=== PATIENT | male | born 1960 | race Caucasian/White ===

== ENCOUNTER → 2017-08-12 07:14 | Outpatient (CLI) | payer BC, SELFPAY ==
[2017-08-12 10:35] LABS: Alanine Aminotransferase 41 U/L (12-78); Albumin Level 3.8 gm/dL (3.4-5.0); Albumin/Globulin Ratio 1.4 (1.1-1.8); Alkaline Phosphatase 96 U/L (46-116); Anion Gap 12.6 mEq/L (5-15); Aspartate Amino Transferase 29 U/L (15-37); Bilirubin,Total 0.5 mg/dL (0.2-1.0); Blood Urea Nitrogen 14 mg/dL (7-18); Calcium 8.8 mg/dL (8.5-10.1); Carbon Dioxide 28 mmol/L (21.0-32.0); Chloride 104 mmol/L (98-107); Chol/HDL Ratio 5.4 (1-3.5); Cholesterol 237 mg/dL (140-200); Creatinine,Serum 0.89 mg/dL (0.70-1.30); Estimated Glomerular Filt Rate > 60 ml/min (>60); GFR (African American) > 60 ML/MIN (>60); Globulin 2.8 gm/dl (1.3-3.2); Glucose 94 mg/dL (74-106); HDL Cholesterol 44 mg/dL (27-67); LDL Cholesterol 177 mg/dL (0-130); Potassium 4.6 mmoL/L (3.5-5.1); Sodium 140 mmol/L (136-145); Total Protein,Serum 6.6 gm/dL (6.4-8.2); Triglycerides 82 mg/dL (30-200); VLDL Cholesterol 16 mg/dL (0-40)
== END ==
PROVIDERS: PCP Family Medicine; Visit Provider Nurse Practitioner Family
DX: E78.5 Hyperlipidemia, unspecified (principal)
CPT/HCPCS: 36415; 80053; 80061

== ENCOUNTER → 2018-05-12 07:04 | Outpatient (CLI) | payer BC, SELFPAY ==
[2018-05-12 08:02] LABS: Alanine Aminotransferase 42 U/L (12-78); Albumin Level 3.6 gm/dL (3.4-5.0); Albumin/Globulin Ratio 1.2 (1.1-1.8); Alkaline Phosphatase 96 U/L (46-116); Anion Gap 9.5 mEq/L (5-15); Aspartate Amino Transferase 24 U/L (15-37); Bilirubin,Total 0.5 mg/dL (0.2-1.0); Blood Urea Nitrogen 12 mg/dL (7-18); Calcium 8.8 mg/dL (8.5-10.1); Carbon Dioxide 29 mmol/L (21.0-32.0); Chloride 107 mmol/L (98-107); Chol/HDL Ratio 4.1 (1-3.5); Cholesterol 170 mg/dL (140-200); Creatinine,Serum 0.94 mg/dL (0.70-1.30); Estimated Glomerular Filt Rate 83 ml/min (>60); GFR (African American) 100 ML/MIN (>60); Glucose 102 mg/dL (74-106); HDL Cholesterol 41 mg/dL (27-67); LDL Cholesterol 114 mg/dL (0-130); Potassium 4.5 mmoL/L (3.5-5.1); Sodium 141 mmol/L (136-145); Total Protein,Serum 6.6 gm/dL (6.4-8.2); Triglycerides 77 mg/dL (30-200); VLDL Cholesterol 15 mg/dL (0-40)
== END ==
PROVIDERS: PCP Family Medicine; Visit Provider Family Medicine
DX: E78.5 Hyperlipidemia, unspecified (principal)
CPT/HCPCS: 36415; 80053; 80061

== ENCOUNTER → 2018-10-07 10:17 | Outpatient (CLI) | payer BC, SELFPAY ==
--- NOTE | 2018-10-07 10:24 | XR_ITS ---
XR hip RT 2-3V w/pelvis HISTORY: ITS.REASON: RIGHT HIP PAIN ORDERING PHYSICIAN: Vin Denson MD PATIENT AGE: 58 years COMPARISON: None FINDINGS: No fracture or dislocation is evident. Mild to moderate osteoarthritic changes are present involving both hips right slightly greater than left. There is decrease in the joint space with osteophyte formation. No fracture or dislocation. No lytic or blastic change. There is a calcific density inferior to the ischial tuberosity on the right and could be related to an old avulsion fracture. There is mild sclerosis of the right SI joint. IMPRESSION: Wwah-wz-oibhomje osteoarthritic changes of the right hip Portable fracture of the right ischial tuberosity
== END ==
PROVIDERS: PCP Family Medicine; Visit Provider Family Medicine
DX: M25.551 Pain in right hip (principal)
CPT/HCPCS: 73502

== ENCOUNTER 2018-12-13 17:30 | Outpatient (RCR) | payer BC, SELFPAY ==
--- NOTE | 2018-11-13 18:14 | HMH.PTOPEV ---
PT Outpatient Evaluation Rehab PT Outpatient Evaluation Start: 11/13/18 17:20 Freq: Status: Active Protocol: Document 11/13/18 17:41 RAFIAJEREMY (Rec: 11/13/18 18:14 MIGUELTANNER [id number]) Electronically Signed By Mushtaq Beaver, PT 11/13/18 17:41 Outpatient Therapy Subjective History Subjective History This is the initial Physical Therapy evaluation for Sorin Vasquez. Pt is a 58 y/o male referred to PT for c/o R hip and buttocks pain. Pt reports ~ 6 months ago he squatted down to pick something up while carrying load in L[place]. Pt reports as he stood he felt and heard a pop in his R hip joint and had anterior thigh pain. Pt reports pain in anterior thigh lessened but began having pain in R buttocks. Pt reports both are still hurting Chief Complaint Pain Stiff Symptom Type Ache Throb Sharp Stabbing Burning Symptoms Relieved By Rest/Positioning Symptoms Aggravated By Standing Physical Activity Walking Prior Functional Limitations None Current Functional Limitations Standing Recreation Activity Walking Stairs Hip/Knee Eval Gait Observation General Gait Pattern Observation Antalgic Gait Assistive Device Assistive Devices None / NA Palpation Tenderness right Hip Palpation Findings Tenderness Trigger Point Muscle Guarding MMT left Hip Strength Reason Not Measured WFL Knee Strength Reason Not Measured WFL right Hip Flexion Strength Grade 4- Good- Hip External Rotation Strength Grade 4- Good- Knee Strength Reason Not Measured WFL Special Tests Hip Bowstring (Cram) Test Negative Left Negative Right Hip Luz Elena Test Positive Right Hip Piriformis Test Positive Right Hip Scouring (Quadrant) Test Positive Right Outpatient Therapy Assessment Impairments Problems/Impairmments Palpation Tenderness Impaired Strength Impaire
== END 2018-12-13 17:35 | disposition home or self-care (01) ==
LOC: PT 17:30
PROVIDERS: Visit Provider Orthopaedic Surgery
DX: M16.11 Unilateral primary osteoarthritis, right hip (principal); M16.12 Unilateral primary osteoarthritis, left hip; M67.98 Unspecified disorder of synovium and tendon, other site
CPT/HCPCS: 97010; 97110; 97163

== ENCOUNTER → 2019-01-21 09:59 | Outpatient (CLI) | payer BC, SELFPAY ==
--- NOTE | 2019-01-21 10:04 | XR_ITS ---
XR knee LT 3V HISTORY: Acute left knee pain ITS.REASON: LT KNEE PAIN ORDERING PHYSICIAN: Vin Denson MD PATIENT AGE: 58 years COMPARISON: 09/01/2009 FINDINGS: There is severe osteoarthritis of the medial compartment with moderate to severe osteoarthritis of the lateral compartment and patellofemoral joint. The osteoarthritis has progressed since the previous exam. There is mild lateral tibial translation of approximately 8 mm. Prominent osteophyte formation is present along the proximal medial tibial plateau and along the patellofemoral area. IMPRESSION: Severe osteoarthritis which has progressed from the previous exam. No fracture
== END ==
PROVIDERS: PCP Family Medicine; Visit Provider Family Medicine
DX: M25.562 Pain in left knee (principal)
CPT/HCPCS: 73562

== ENCOUNTER → 2020-12-18 07:55 | Outpatient (CLI) | payer BC, SELFPAY ==
[2020-12-18 08:54] LABS: Chloride 105 mmol/L (98-107); Potassium 4.8 mmoL/L (3.5-5.1); Sodium 139 mmol/L (136-145)
[2020-12-18 08:56] LABS: Alanine Aminotransferase 30 U/L (12-78); Aspartate Amino Transferase 30 U/L (17-59); Blood Urea Nitrogen 19 mg/dl (9-20); Estimated Glomerular Filt Rate 99 ml/min (>60); GFR (African American) 120 ML/MIN (>60)
[2020-12-18 08:57] LABS: Albumin Level 4.5 g/dl (3.5-5.0); Albumin/Globulin Ratio 1.8 (1.1-1.8); Alkaline Phosphatase 88 U/L (38-126); Anion Gap 11.8 mEq/L (5-15); Bilirubin,Total 0.4 mg/dl (0.2-1.3); Calcium 9.8 mg/dl (8.4-10.2); Carbon Dioxide 27 mmol/L (22.0-30.0); Chol/HDL Ratio 3.6 (1-3.5); Cholesterol 181 mg/dl (140-200); Globulin 2.5 g/dL (1.3-3.2); Glucose 126 mg/dl (74-100); HDL Cholesterol 50 mg/dl (40-60); Triglycerides 69 mg/dl (30-150); VLDL Cholesterol 14 mg/dL (0-40)
[2020-12-18 09:08] LABS: Direct LDL Cholesterol 109.62 mg/dL (100-129)
[2020-12-18 09:28] LABS: Thyroid Stimulating Hormone 1.08 uIU/mL (0.465-4.68)
== END ==
PROVIDERS: Visit Provider Family Medicine
DX: E78.5 Hyperlipidemia, unspecified (principal)
CPT/HCPCS: 36415; 80053; 80061; 84443

== ENCOUNTER → 2021-07-26 16:05 | Outpatient (CLI) | payer BC, SELFPAY ==
--- NOTE | 2021-07-26 16:09 | XR_ITS ---
PROCEDURE: XR LUMBAR SPINE MIN 4V CLINICAL INDICATION: RT SIDED LOW BACK PAIN W/ RT SIDES SCIATICA COMPARISON: No exams were available for comparison FINDINGS: Mild lumbar curvature convex right. No fracture or dislocation. 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 Anterior osteophytes are noted. There are small posterior osteophytes from L2-L5. Mild bony hypertrophy of the inferior aspect of the SI joints. Degenerative changes are present in the right hip. IMPRESSION: Degenerative changes otherwise negative Dictated by: Juan Olivera MD 07/26/2021 16:46 Juan Olivera MD in [facility] 07/26/2021 16:46
== END ==
PROVIDERS: PCP Family Medicine; Visit Provider Family Medicine
DX: M54.41 Lumbago with sciatica, right side (principal)
CPT/HCPCS: 72110

== ENCOUNTER 2023-10-22 15:13 | Emergency (ER) | payer BC, SELFPAY ==
[2023-10-22] VITALS (19 sets, daily range): BP systolic 117–158; BP diastolic 71–84; PULSE 77–150; RESP 9–20; TEMP 36.6–36.7; O2SAT 94–98; BMI 45.4
--- NOTE | 2023-10-22 15:15 | ECG_ITS ---
APPROVED REPORT Exam: Resting ECG HR:115 bpm ECG Measurements Heart Rate 115 AXES QRSd 97 QRS -15 QT 307 T 43 QTc 375 Conclusion ATRIAL FIBRILLATION WITH RAPID VENTRICULAR RESPONSE MODERATE ST DEPRESSION [0.05+ mV ST DEPRESSION] ABNORMAL ECG UNCONFIRMED REPORT Electronically signed by : Santosh Valentine, 10/23/2023 22:53:53
--- NOTE | 2023-10-22 15:48 | PC.NURSE ---
pt up to restroom
--- NOTE | 2023-10-22 16:23 | HMH.EDGENADL ---
Discharge Plan Disposition Patient Disposition: Home, Self-Care Prescriptions Prescriptions: New Eliquis 5 mg tablet 5 mg PO BID 28 Days Qty: 56 0RF Rx Instructions: please take 10 mg BID for 7 days followed by 5 mg BID for a total of 3 months No Action nabumetone 750 mg tablet 750 mg PO BID simvastatin 20 mg/5 mL (4 mg/mL) suspension 20 mg PO QHS Referrals Follow up/Referrals: Clifford Diaz MD [Staff Physician] - See instructions Provider,MD Justa [Primary Care Provider] - See instructions Activity Restrictions/Add. Instructions Additional Instructions/Restrictions: You had new onset of atrial fibrillation with rapid ventricular response and we electrically cardioverted you back into normal sinus rhythm. You have been prescribed Eliquis for 4 weeks of anticoagulation please follow-up closely with cardiology and make an appointment next available. Return to the emergency department with any recurrence or worsening of her symptoms. Clinical Impressions Clinical Impression: Atrial fibrillation with rapid ventricular response Instructions Patient Instructions: DI for Moderate Sedation, Moderate Sedation Discharge ED Provider: Rosetta Valentine General Adult HPI General Chief complaint: Arrhythmia/Palpitations Stated complaint: chest pain Time Seen by Provider: 10/22/23 15:44 Mode of Arrival: Ambulatory Source of Information: Patient Limitations: No Limitations Description of Symptoms (Recalled from ER Triage Doc. by RN): pt presents to ED with arrythmia. pt reports that he ate lunch, then went out to ride on his tractor. pt reports he went inside to sit down and felt that his heart was out of rhythm . pt reports no pain or pressure associated with symptoms. History of Present Illness HPI narrative: Patient is a 63-year-old previously healthy male presenting today with his heart fluttering and near syncope. States that he has no history of atrial fibrillation or any type of ventricular or atrial dysrhythmia in the past and states that suddenly at around 3 PM he began feeling his heart fluttering and felt as if he was going pass out. No significant chest pain shortness of breath fevers chills nausea vomiting etc. preceding this. He was diagnosed with influenza B 2 weeks ago but has not had no other preceding illnesses. Related Data Home Medications Medication Instructions Recorded Confirmed nabumetone 750 mg tablet 750 mg PO BID 11/02/18 11/02/18 simvastatin 20 mg/5 mL (4 mg/mL) 20 mg PO QHS 11/02/18 11/02/18 oral suspension Previous Rx's Medication Instructions Recorded apixaban 5 mg tablet (Eliquis) 5 mg PO BID 4 weeks #56 tabs 10/22/23 Allergies Allergy/AdvReac Type Severity Reaction Status Date / Time penicillin G Allergy Verified 11/02/18 10:43 [facility] Disclaimer: The information contained in this section may have been updated after the patient was seen, as this information can be updated by other users. Social History Smoking Status: Never smoker alcohol intake: never current occupational status: employed Travel in the last 8 weeks: None ROS Obtained: Yes All systems reviewed & no additional complaints except as documented Physical Exam General General appearance: alert and in no apparent distress Respiratory Respiratory exam: Present normal lung sounds bilaterally Cardiovascular Cardiovascular exam: Present regular rate and normal rhythm Neurological Exam Neurological exam: Present alert and oriented X3 Medical Decision Making Alfredito Inquiry Pt receiving controlled substance: No Vital Signs: 10/22/23 15:15 10/22/23 15:22 10/22/23 15:30 Temperature 97.9 F Temperature Source Oral Pulse Rate 80 Pulse Rate [Left Radial] 135 H 81 Respiratory Rate 18 15 Blood Pressure 158/83 H Blood Pressure [Right Arm] 158/83 H 158/83 H Blood Pressure Mean Blood Pressure Mean [Right Arm] 108 108 02 Sat by Pulse Oximetry 97 95 Oxygen Delivery Method Room Air Oxygen Flow Rate (LPM) 10/22/23 15:31 10/22/23 16:01 10/22/23 16:29 Temperature Temperature Source Pulse Rate 86 91 H Pulse Rate [Left Radial] 150 H Respiratory Rate 18 18 18 Blood Pressure 146/84 H 148/72 H Blood Pressure [Right Arm] 141/80 H Blood Pressure Mean 97 Blood Pressure Mean [Right Arm] 100 02 Sat by Pulse Oximetry 95 97 98 Oxygen Delivery Method Room Air Oxygen Flow Rate (LPM) 10/22/23 16:41 10/22/23 16:45 10/22/23 16:51 Temperature Temperature Source Pulse Rate 83 83 90 Pulse Rate [Left Radial] Respiratory Rate 20 15 18 Blood Pressure 152/78 H 137/80 122/72 Blood Pressure [Right Arm] Blood Pressure Mean 94 Blood Pressure Mean [Right Arm] 02 Sat by Pulse Oximetry 95 94 L 95 Oxygen Delivery Method Nasal Cannula Oxygen Flow Rate (LPM) 2 10/22/23 16:56 10/22/23 16:57 10/22/23 17:01 Temperature Temperature Source Pulse Rate 91 H 92 H Pulse Rate [Left Radial] 88 Respiratory Rate 12 14 Blood Pressure 119/72 126/71 Blood Pressure [Right Arm] 119/72 Blood Pressure Mean Blood Pressure Mean [Right Arm] 87 02 Sat by Pulse Oximetry 96 96 96 Oxygen Delivery Method Room Air Oxygen Flow Rate (LPM) 10/22/23 17:06 10/22/23 17:15 10/22/23 17:16 Temperature Temperature Source Pulse Rate 87 79 81 Pulse Rate [Left Radial] Respiratory Rate 19 9 L 20 Blood Pressure 128/78 124/79 117/71 Blood Pressure [Right Arm] Blood Pressure Mean Blood Pressure Mean [Right Arm] 02 Sat by Pulse Oximetry 94 L 96 96 Oxygen Delivery Method Oxygen Flow Rate (LPM) 10/22/23 17:21 10/22/23 17:26 10/22/23 17:30 Temperature Temperature Source Pulse Rate 81 81 77 Pulse Rate [Left Radial] Respiratory Rate 18 18 Blood Pressure 131/73 127/72 125/81 Blood Pressure [Right Arm] Blood Pressure Mean Blood Pressure Mean [Right Arm] 02 Sat by Pulse Oximetry 95 98 95 Oxygen Delivery Method Oxygen Flow Rate (LPM) Lab Data Lab results reviewed: Yes I reviewed the patient's lab results. Lab Results 10/22/23 15:23: WBC 10.5, RBC 5.05, Hgb 16.1, Hct 47.5, MCV 94.1 H, MCH 31.9 H, MCHC 33.9, RDW 13.2, Plt Count 295, MPV 9.4, Neut % (Auto) 64.4, Lymph % (Auto) 25.8, [place] % (Auto) 7.1, Eos % (Auto) 2.2, Baso % (Auto) 0.6, Neut # (Auto) 6.7, Lymph # (Auto) 2.7, [place] # (Auto) 0.7, Eos # (Auto) 0.2, Baso # (Auto) 0.1, Sodium 140, Potassium 4.0, Chloride 107, Carbon Dioxide 28, Anion Gap 9.0, BUN 13, Creatinine 0.80, Estimated Creat Clear 83, Estimated GFR 98, Est GFR ( Amer) 119, Glucose 90, Calcium 9.3, Magnesium 2.0, Total Bilirubin 0.4, AST 39, ALT 34, Alkaline Phosphatase 84, Troponin I < 0.01, Total Protein 6.9, Albumin 4.3, Globulin 2.6, Albumin/Globulin Ratio 1.7, TSH 2.16 10/22/23 15:23 10/22/23 15:23 Orders (Tests/Meds): ED MEDICATIONS Discontinued Medications Generic Name Dose Route Start Last Admin Trade Name Shivaq PRN Reason Stop Dose Admin Apixaban 5 mg 10/22/23 16:53 10/22/23 17:32 Apixaban 5mg Tablet PO 10/22/23 16:54 5 mg ONCE ONE Administration Fentanyl Citrate 100 mcg 10/22/23 16:47 10/22/23 16:32 Fentanyl 100mcg/2ml Vial IV 10/22/23 16:48 100 mcg ONCE ONE Administration Lactated Ringer's 1,000 mls @ 999 mls/hr 10/22/23 16:30 10/22/23 16:35 Lactated Ringer's 1000 Ml Bag IV 10/22/23 17:30 999 mls/hr .Q1H1M FE Administration Midazolam HCl 5 mg 10/22/23 16:47 10/22/23 16:35 Midazolam 5mg/Ml 1ml Vial IV 10/22/23 16:48 5 mg ONCE ONE Administration ORDERS Category Date Time Status CBC w/Auto Diff [Complete Blood Count Auto Diff] Stat Lab 10/22/23 15:23 Completed CMP [Comprehensive Metabolic Panel] Stat Lab 10/22/23 15:23 Completed Magnesium Stat Lab 10/22/23 15:23 Completed TSH [Thyroid Stimulating Hormone] Stat Lab 10/22/23 15:23 Completed Trop I [Troponin I] Stat Lab 10/22/23 15:23 Completed Troponin I Q3H Lab 10/22/23 19:30 Ordered Troponin I Q3H Lab 10/22/23 22:30 Ordered Medical Decision Narrative: Patient is a 63-year-old male with a very good history of sudden arrhythmia EKG was performed at person interpreted shows a ventricular rate of 115 atrial fibrillation with RVR there are some nonspecific ST changes in the inferior leads in the lateral precordial leads no ST elevations patient has no signs or symptoms of ischemia at the moment. His blood pressure is normal. I had an extensive discussion with him about the risk and benefits of rate control versus rhythm control. He opted for going for rhythm control with electrical cardioversion I do believe that this is safe in his particular case because he is within 48 hours and gives a good history of exactly when this began. I will still initiate anticoagulation with him after this. And he will follow-up closely with cardiology if this is successful. Will reassess after cardioversion is attempted. Reassessment 4:50 PM cardioversion was successful EKG subsequently performed which showed a ventricular rate of 86 normal sinus rhythm no acute ischemic changes there is left axis deviation no significant conduction abnormalities at this point. Reassessment 6:02 PM patient asymptomatic the remainder of the time and feels much better and back to baseline the emergency department after cardioversion. Labs unremarkable. He was given a dose of Eliquis and given 4 weeks of anticoagulation. He will follow-up closely with cardiology and return with any significant worsening of his symptoms Procedures Procedural Sedation Mallampati Score:: Class I Indication: other (Electrical cardioversion) ASA Class: I Preparation: cfo applied, pulse oximeter, capnometry used, supplemental O2 applied, suction/airway equipment at bedside and IV secured Fentanyl: IV Fentanyl dose (mcg): 1 (100 mcg ) Midazolam: IV Midazolam dose (mg): 4 Patient Tolerated Procedure: well Complications: none Additional Comments: Start time was 1632 End time 1643 Miscellaneous Procedure Procedure Performed: Electrical cardioversion Indication new onset A-fib within 48 hours Procedure patient was consented he understood the risk and benefits of procedure pads were placed in anterior posterior position synchronized cardioversion was done with 100 J with successful cardioversion with first attempt. Subsequent twelve-lead was performed after the cardioversion that demonstrated sinus rhythm. No complications. Critical Care Critical Care Time Critical Care Time: Yes Attestation: On 10/22/23, the high probability of a clinically significant, sudden or life threatening deterioration of the following system(s) required my full and direct attention, intervention and personal management. The time I documented below is in addition to time spent performing reported procedures but includes the following listed in this critical care notation. Total Time Total Critical Care Time: 35
[2023-10-22 16:30] LABS: Basophils # 0.1 K/mm3 (0-0.2); Basophils % 0.6 % (0.1-2.0); Eosinophils # 0.2 K/mm3 (0.0-0.4); Eosinophils % 2.2 % (0.1-12.0); Hematocrit 47.5 % (42.0-52.0); Hemoglobin 16.1 g/dL (14.1-18.0); Lymphocytes # 2.7 K/mm3 (0.7-4.5); Lymphocytes % 25.8 % (10-50); Mean Corpuscular HGB Conc 33.9 g/dL (31.8-35.4); Mean Corpuscular Hemoglobin 31.9 pg (27.0-31.2); Mean Corpuscular Volume 94.1 fl (80-94); Mean Platelet Volume 9.4 fl (7.4-10.4); Monocytes # 0.7 K/mm3 (0.1-1.0); Monocytes % 7.1 % (1.7-9.3); Neutrophils # 6.7 K/mm3 (1.8-7.8); Neutrophils % 64.4 % (37.0-80.0); Platelet Count 295 K/mm3 (142-424); Red Blood Count 5.05 M/mm3 (4.60-6.20); Red Cell Distribution Width 13.2 % (11.5-17.5); White Blood Count 10.5 K/mm3 (4.8-10.8)
[2023-10-22 16:31] LABS: Chloride 107 mmol/L (98-107); Sodium 140 mmol/L (136-145)
[2023-10-22] MEDS: FENTANYL 100MCG/2ML VIAL 100 MCG IV (16:32)
[2023-10-22 16:34] LABS: Alanine Aminotransferase 34 U/L (12-78); Albumin Level 4.3 g/dl (3.5-5.0); Albumin/Globulin Ratio 1.7 (1.1-1.8); Alkaline Phosphatase 84 U/L (38-126); Aspartate Amino Transferase 39 U/L (17-59); Bilirubin,Total 0.4 mg/dl (0.2-1.3); Blood Urea Nitrogen 13 mg/dl (9-20); Calcium 9.3 mg/dl (8.4-10.2); Carbon Dioxide 28 mmol/L (22.0-30.0); Creatinine Clearance Estimated 83 mL/min (50-200); Estimated Glomerular Filt Rate 98 ml/min (>60); GFR (African American) 119 ML/MIN (>60); Globulin 2.6 g/dL (1.3-3.2); Glucose 90 mg/dl (74-100); Total Protein,Serum 6.9 g/dl (6.3-8.2)
[2023-10-22] MEDS: LACTATED RINGERS 1000ML 1,000 ML 999 ML IV (16:35)
[2023-10-22] MEDS: MIDAZOLAM 5MG/ML 1ML VIAL 5 MG IV (16:35)
--- NOTE | 2023-10-22 16:41 | ECG_ITS ---
APPROVED REPORT Exam: Resting ECG HR:86 bpm ECG Measurements Heart Rate 86 AXES ID 166 P 56 QRSd 98 QRS -23 QT 339 T 29 QTc 382 Conclusion SINUS RHYTHM BORDERLINE LEFT AXIS DEVIATION [QRS AXIS < -20] BORDERLINE ECG UNCONFIRMED REPORT Electronically signed by : Santosh Valentine, 10/23/2023 22:53:37
[2023-10-22 16:54] LABS: Troponin I < 0.01 ng/ml (0.00-0.034)
--- NOTE | 2023-10-22 17:00 | PC.NURSE ---
1622 consent obtained 1629 time out performed, pads placed on pt, co2 monitor placed on pt, oxygen placed on pt, hung saline fluids, assessed IV status md trinidad, demond barrientos, ashley dorsey, demond rothman, vin[facility] murray, [facility]. 1632 fentanyl given 1635 versed given 1639 charge to 100j 1640 shock given 1640 pt in sinus rhythm 1643 pt back to baseline, brought into room
[2023-10-22 17:06] LABS: Thyroid Stimulating Hormone 2.16 uIU/mL (0.465-4.68)
[2023-10-22] MEDS: APIXABAN 5MG TABLET 5 MG PO (17:32)
== END 2023-10-22 18:04 | disposition home or self-care (01) ==
PROVIDERS: Emergency Provider Student in an Organized Health Care Education/Training Program
DX: I48.91 Unspecified atrial fibrillation (principal)
CPT/HCPCS: 92960; 80053; 83735; 84443; 84484; 85025; 93005; 96360; 99291

== ENCOUNTER 2023-11-06 18:42 | Emergency (ER) | payer BC, SELFPAY ==
[2023-11-06] VITALS (8 sets, daily range): BP systolic 131–162; BP diastolic 65–100; PULSE 73–163; RESP 12–20; TEMP 36.5–36.6; O2SAT 96–98; BMI 46.0
--- NOTE | 2023-11-06 18:40 | ECG_ITS ---
APPROVED REPORT Exam: Resting ECG HR:139 bpm ECG Measurements Heart Rate 139 AXES QRSd 96 QRS -15 QT 286 T 55 QTc 367 Conclusion ATRIAL FIBRILLATION WITH RAPID VENTRICULAR RESPONSE Nonspecific ST/T wave changes Electronically signed by : GASTON MALONEY, 11/06/2023 21:38:24
--- NOTE | 2023-11-06 18:43 | HMH.EDGENADL ---
Discharge Plan Disposition Patient Disposition: Home, Self-Care Condition: Good Prescriptions Prescriptions: New verapamil 240 mg capsule,ext rel. pellets 24 hr 240 mg PO DAILY Qty: 30 1RF No Action celecoxib 200 mg capsule 200 mg PO DAILY Patient Comments: TAKE 1 CAPSULE BY MOUTH ONCE DAILY simvastatin 20 mg tablet 20 mg PO HS Patient Comments: TAKE 1 TABLET BY MOUTH EVERY DAY AT BEDTIME Eliquis 5 mg tablet 5 mg PO BID 28 Days Qty: 56 0RF Rx Instructions: please take 10 mg BID for 7 days followed by 5 mg BID for a total of 3 months Referrals Follow up/Referrals: Provider,Referral, MD [Primary Care Provider] - See instructions Activity Restrictions/Add. Instructions Additional Instructions/Restrictions: You were evaluated in the emergency department today. Please shrimp picker your prescription at the pharmacy and take once a day as prescribed. Keep your follow-up with cardiology tomorrow. Continue to follow-up closely as an outpatient with cardiology as well as your primary care provider. Return to the emergency department for any new or worsening symptoms. Clinical Impressions Clinical Impression: Atrial fibrillation with rapid ventricular response Instructions Patient Instructions: DI for Atrial Fibrillation Discharge ED Provider: Paige Stapleton General Adult HPI General Chief complaint: Arrhythmia/Palpitations Stated complaint: chest pain Time Seen by Provider: 11/06/23 18:43 History of Present Illness HPI narrative: This patient is a 63-year-old male with a history of atrial fibrillation and hyperlipidemia presenting to the emergency department for evaluation with concern for palpitations. Patient reports that 30 minutes prior to arrival, he was pushing the trash cans to the road when he had sudden onset palpitations and lightheadedness. He states that he knew he went into atrial fibrillation again. He was evaluated here 10/22/2023 for similar issue, and he was electrically cardioverted. On medical record review, he was sedated with fentanyl and Versed and underwent cardioversion, which converted him into normal sinus rhythm. He was discharged home on Eliquis but not on any rate control medications. He followed up outpatient with cardiology and was scheduled to have testing, including stress test. He is due for that tomorrow. He states he had been doing really well since 10/21 up until flipping back into atrial fibrillation just prior to arrival. He denies any other concerns or complaints. He has been compliant with his Eliquis treatment. Related Data Home Medications Medication Instructions Recorded Confirmed celecoxib 200 mg capsule 200 mg PO DAILY 10/24/23 10/24/23 simvastatin 20 mg tablet 20 mg PO HS 10/24/23 10/24/23 Previous Rx's Medication Instructions Recorded apixaban 5 mg tablet (Eliquis) 5 mg PO BID 4 weeks #56 tabs 10/22/23 verapamil 240 mg 24 hr 240 mg PO DAILY #30 caps 11/06/23 capsule,extended release Allergies Allergy/AdvReac Type Severity Reaction Status Date / Time penicillin G Allergy Verified 10/24/23 11:09 [facility] Disclaimer: The information contained in this section may have been updated after the patient was seen, as this information can be updated by other users. Medical History History of cardioversion HLD (hyperlipidemia) Obesity Apnea Snoring Social History Smoking Status: Never smoker alcohol intake: never current occupational status: employed Travel in the last 8 weeks: None ROS Obtained: Yes All systems reviewed & no additional complaints except as documented Physical Exam General General appearance: alert, in no apparent distress and obese Head Head exam: atraumatic and normocephalic Eye Eye exam: Present normal appearance, PERRL and EOMI ENT ENT exam: Present normal exam, normal oropharynx, mucous membranes moist and normal external ear exam Neck Neck exam: Present normal inspection, full ROM and trachea midline; Absent tenderness Chest Chest inspection: Present normal inspection and symmetric chest wall rise; Absent tenderness Respiratory Respiratory exam: Present normal lung sounds bilaterally; Absent respiratory distress, wheezes, stridor or accessory muscle use Cardiovascular Cardiovascular exam: Present tachycardia and irregular rhythm Abdominal Exam Abdominal exam: Present soft; Absent distention, tenderness or guarding Extremities Exam Extremities exam: Present normal inspection, full ROM and normal capillary refill; Absent tenderness or edema Back Exam Back exam: Present normal inspection and full ROM; Absent tenderness Neurological Exam Neurological exam: Present alert, oriented X3, CN II-XII intact and normal gait; Absent motor sensory deficit Psychiatric Psychiatric exam: Present normal affect and normal mood Skin Skin exam: Present warm and dry Medical Decision Making Medical Records Medical records reviewed: Yes I reviewed the patient's medical records. Alfredito Inquiry Pt receiving controlled substance: No Vital Signs: 11/06/23 18:42 11/06/23 19:01 11/06/23 19:19 Temperature 97.9 F Temperature Source Oral Pulse Rate 139 H 142 H Pulse Rate [Radial] 120 H Respiratory Rate 20 12 14 Blood Pressure 138/65 138/82 Blood Pressure [Right Arm] 162/100 H Blood Pressure Mean 99 94 Blood Pressure Mean [Right Arm] 120 Blood Pressure Source [Right Arm] Automatic Cuff Blood Pressure Position [Right Arm] Sitting 02 Sat by Pulse Oximetry 96 96 97 Oxygen Delivery Method Room Air Room Air Nasal Cannula 11/06/23 19:31 11/06/23 20:00 11/06/23 20:31 Temperature Temperature Source Pulse Rate 163 H 86 84 Pulse Rate [Radial] Respiratory Rate 14 14 14 Blood Pressure 144/76 H 145/80 H 131/75 Blood Pressure [Right Arm] Blood Pressure Mean 98 88 86 Blood Pressure Mean [Right Arm] Blood Pressure Source [Right Arm] Blood Pressure Position [Right Arm] 02 Sat by Pulse Oximetry 96 97 97 Oxygen Delivery Method Nasal Cannula Nasal Cannula Nasal Cannula 11/06/23 21:00 Temperature Temperature Source Pulse Rate 80 Pulse Rate [Radial] Respiratory Rate 14 Blood Pressure 139/82 Blood Pressure [Right Arm] Blood Pressure Mean 95 Blood Pressure Mean [Right Arm] Blood Pressure Source [Right Arm] Blood Pressure Position [Right Arm] 02 Sat by Pulse Oximetry 97 Oxygen Delivery Method Nasal Cannula Lab Data Lab results reviewed: Yes I reviewed the patient's lab results. Lab Results 11/06/23 18:43: WBC 10.7, RBC 5.05, Hgb 16.2, Hct 47.8, MCV 94.7 H, MCH 32.0 H, MCHC 33.8, RDW 13.2, Plt Count 268, MPV 8.7, Neut % (Auto) 58.1, Lymph % (Auto) 30.0, Lyon % (Auto) 7.3, Eos % (Auto) 3.7, Baso % (Auto) 0.9, Neut # (Auto) 6.2, Lymph # (Auto) 3.2, Lyon # (Auto) 0.8, Eos # (Auto) 0.4, Baso # (Auto) 0.1, D-Dimer 0.35, Sodium 140, Potassium 4.2, Chloride 106, Carbon Dioxide 27, Anion Gap 11.2, BUN 14, Creatinine 0.90, Estimated Creat Clear 83, Estimated GFR 86, Est GFR ( Amer) 104, Glucose 96, Calcium 10.0, Magnesium 1.8, Total Bilirubin 0.4, AST 38, ALT 33, Alkaline Phosphatase 90, Troponin I < 0.01, NT-Pro-B Natriuret Pep 88.8, Total Protein 7.2, Albumin 4.4, Globulin 2.8, Albumin/Globulin Ratio 1.6 11/06/23 : TSH 2.37, Thyroxine (T4) 7.2 11/06/23 18:43 11/06/23 18:43 Orders (Tests/Meds): ED MEDICATIONS Generic Name Dose Route Start Last Admin Trade Name Freq PRN Reason Stop Dose Admin Sodium Chloride 10 ml 11/06/23 18:47 Sodium Chloride 0.9% 10ml Flush Syringe IV 12/06/23 18:46 NEEDED PRN Maintain IV Site Discontinued Medications Generic Name Dose Route Start Last Admin Trade Name Freq PRN Reason Stop Dose Admin Fentanyl Citrate 100 mcg 11/06/23 19:40 Fentanyl 100mcg/2ml Vial IV 11/06/23 19:41 ONCE ONE Lactated Ringer's 1,000 mls @ 999 mls/hr 11/06/23 18:59 11/06/23 19:42 Lactated Ringer's 1000 Ml Bag IV 11/06/23 19:59 999 mls/hr .Q1H1M ONE Administration Midazolam HCl 4 mg 11/06/23 19:40 Midazolam 2mg/2ml Vial IV 11/06/23 19:41 ONCE ONE Verapamil HCl 240 mg 11/06/23 19:00 11/06/23 19:41 Verapamil Sr 120mg Tablet PO 11/06/23 19:01 240 mg ONCE ONE Administration ORDERS Category Date Time Status XR chest portable Stat Exams 11/06/23 18:47 Completed Complete Blood Count Auto Diff Stat Lab 11/06/23 18:43 Completed Comprehensive Metabolic Panel Stat Lab 11/06/23 18:43 Completed D-Dimer Stat Lab 11/06/23 18:43 Completed Magnesium Stat Lab 11/06/23 18:43 Completed NT Pro Brain Natriuretic Pep. Stat Lab 11/06/23 18:43 Completed T4 (Thyroxine) Stat Lab 11/06/23 Completed Thyroid Stimulating Hormone Stat Lab 11/06/23 Completed Troponin I Q3H Lab 11/06/23 22:00 Ordered Troponin I Q3H Lab 11/07/23 01:00 Ordered Troponin I Stat Lab 11/06/23 18:43 Completed ECG Data Tracing #1: I reviewed this ECG and interpreted as documented below: Atrial fibrillation with a ventricular rate of 139 bpm. No acute STEMI. ECG initial impression date: 11/06/23 ECG initial impression time: 18:41 Tracing #2: I reviewed this ECG and interpreted as documented below: Normal sinus rhythm with a ventricular rate of [address] changes concerning for ischemia. Incomplete right bundle branch block noted. ECG initial impression date: 11/06/23 ECG initial impression time: 20:09 Medical Decision Narrative: In summary, this patient is a 63-year-old male presenting to the Emergency Department for evaluation of palpitations. Differential diagnoses considered include but are not limited to atrial fibrillation, electrolyte derangements, thyroid abnormality, ACS. Ruling out the most morbid conditions drove assessment. I reviewed patient's past medical records and noted previous cardioversion 10/21, which she tolerated well.. On exam, the patient is hemodynamically stable and is resting comfortably in no acute distress, though he is in atrial fibrillation with rapid ventricular response with rates ranging from the 120s to 140s. I called and had and after discussion with Dr. Diaz with cardiology given that the patient has cardiology follow-up arranged for tomorrow for testing to see if he has a preference on how I manage the atrial fibrillation. He advised that he would recommend giving 240 mg of p.o. extended release verapamil as well as proceeding with cardioversion as long as patient is okay with that. Workup included CBC, CMP, troponin, magnesium, TSH, T4, BNP, chest rate, and EKG. EKG does not demonstrate any acute ischemic change, but does demonstrate atrial fibrillation with RVR. Labs were obtained that were reassuring with negative troponin, negative D-dimer, and no other acutely concerning abnormalities. I independently interpreted x-ray prior to the radiologist read and noted acute focal consolidation, pneumothorax, or pulmonary edema. Please see their read for final interpretation. Ultimately after being administered the verapamil, patient was consented for cardioversion, as he was still in atrial fibrillation with rapid ventricular response. Fentanyl and versed hold, as we are planning to use this for sedation. Upon attempt to initiate the procedure, patient actually spontaneously converted to normal sinus rhythm, which was confirmed on repeat EKG at 2008. He is feeling well at this time with no concerns or complaints and states that his palpitations have resolved. Patient was placed in ED observation status at 2014 to monitor him on cardiac telemetry and ensure that he does not convert back to atrial fibrillation with rapid ventricular response. He was provided with serial reassessments and continuous cardiac monitoring. If he remains in normal sinus rhythm, feel he will be appropriate for discharge with prescription for verapamil and very close follow-up with cardiology and his primary care provider. On multiple subsequent reassessments, the patient remained in normal sinus rhythm with a rate in the 70s to 80s. At 2130, he was deemed to be ready for discharge after approximately 1 hour and 15 minutes in ED observation. Patient was given instructions for close follow-up, prescription for verapamil, and strict return precautions. He was discharged after all questions were answered. Procedures Risk/Benefits of Procedure(s) Were Explained: Yes Procedural Sedation A heart and lung assessment was performed on this patient at: 19:13 Mallampati Score:: Class I Indication: other (cardioversion) ASA Class: II Preparation: monitoring specialist applied, pulse oximeter, capnometry used, supplemental O2 applied, reversal agents at bedside, suction/airway equipment at bedside and IV secured Critical Care Critical Care Time Critical Care Time: No
--- NOTE | 2023-11-06 18:47 | XR_ITS ---
PROCEDURE INFORMATION: Exam: XR Chest Exam date and time: 11/06/2023 6:50 PM Age: 63 years old Clinical indication: Other: Chest fluttering; Additional info: PT states his chest feels like it's fluttering. TECHNIQUE: Imaging protocol: Radiologic exam of the chest. Views: 1 view. COMPARISON: No relevant prior studies available. FINDINGS: Lungs: Unremarkable. No consolidation. Pleural spaces: Unremarkable. No pleural effusion. No pneumothorax. Heart/Mediastinum: Unremarkable. No cardiomegaly. Bones/joints: Unremarkable. IMPRESSION: No acute findings.
--- NOTE | 2023-11-06 18:49 | PC.NURSE ---
Dr. Stapleton speaking with cardiology
--- NOTE | 2023-11-06 18:53 | PC.NURSE ---
RAD at BS
[2023-11-06 19:00] LABS: Basophils # 0.1 K/mm3 (0-0.2); Basophils % 0.9 % (0.1-2.0); Eosinophils # 0.4 K/mm3 (0.0-0.4); Eosinophils % 3.7 % (0.1-12.0); Hematocrit 47.8 % (42.0-52.0); Hemoglobin 16.2 g/dL (14.1-18.0); Lymphocytes # 3.2 K/mm3 (0.7-4.5); Mean Corpuscular HGB Conc 33.8 g/dL (31.8-35.4); Mean Corpuscular Volume 94.7 fl (80-94); Mean Platelet Volume 8.7 fl (7.4-10.4); Monocytes # 0.8 K/mm3 (0.1-1.0); Monocytes % 7.3 % (1.7-9.3); Neutrophils # 6.2 K/mm3 (1.8-7.8); Neutrophils % 58.1 % (37.0-80.0); Platelet Count 268 K/mm3 (142-424); Red Blood Count 5.05 M/mm3 (4.60-6.20); Red Cell Distribution Width 13.2 % (11.5-17.5); White Blood Count 10.7 K/mm3 (4.8-10.8)
[2023-11-06 19:06] LABS: Alanine Aminotransferase 33 U/L (12-78); Albumin Level 4.4 g/dl (3.5-5.0); Albumin/Globulin Ratio 1.6 (1.1-1.8); Alkaline Phosphatase 90 U/L (38-126); Anion Gap 11.2 mEq/L (5-15); Aspartate Amino Transferase 38 U/L (17-59); Bilirubin,Total 0.4 mg/dl (0.2-1.3); Blood Urea Nitrogen 14 mg/dl (9-20); Carbon Dioxide 27 mmol/L (22.0-30.0); Chloride 106 mmol/L (98-107); Creatinine Clearance Estimated 83 mL/min (50-200); Estimated Glomerular Filt Rate 86 ml/min (>60); GFR (African American) 104 ML/MIN (>60); Globulin 2.8 g/dL (1.3-3.2); Glucose 96 mg/dl (74-100); Magnesium 1.8 mg/dl (1.6-2.3); Potassium 4.2 mmoL/L (3.5-5.1); Sodium 140 mmol/L (136-145); Total Protein,Serum 7.2 g/dl (6.3-8.2)
[2023-11-06 19:11] LABS: D-Dimer 0.35 ug/mL (0.0-0.5)
[2023-11-06 19:16] LABS: NT Pro Brain Natriuretic Pep. 88.8 pg/mL (0-125)
[2023-11-06 19:22] LABS: Troponin I < 0.01 ng/ml (0.00-0.034)
[2023-11-06] MEDS: VERAPAMIL SR 120MG TABLET 240 MG PO (19:41)
[2023-11-06] MEDS: LACTATED RINGERS 1000ML 1,000 ML 999 ML IV (19:42)
--- NOTE | 2023-11-06 19:44 | PC.NURSE ---
up to bathroom
[2023-11-06 20:00] LABS: T4 (Thyroxine) 7.2 ug/dl (5.53-11.0)
--- NOTE | 2023-11-06 20:01 | ECG_ITS ---
APPROVED REPORT Exam: Resting ECG HR:83 bpm ECG Measurements Heart Rate 83 AXES MO 160 P 55 QRSd 96 QRS -30 QT 353 T 27 QTc 392 Conclusion SINUS RHYTHM BORDERLINE LEFT AXIS DEVIATION [QRS AXIS < -20] LOW QRS VOLTAGE IN PRECORDIAL LEADS [QRS DEFLECTION < 1.0 mV IN CHEST LEADS] INCOMPLETE RIGHT BUNDLE BRANCH BLOCK [90+ ms QRS DURATION, TERMINAL R IN V1/V2, 40+ ms S IN I/aVL/V4/V5/V6] Electronically signed by : GASTON MALONEY, 11/07/2023 23:08:45
[2023-11-06 20:14] LABS: Thyroid Stimulating Hormone 2.37 uIU/mL (0.465-4.68)
== END 2023-11-06 22:03 | disposition home or self-care (01) ==
PROVIDERS: Emergency Provider Emergency Medicine
DX: I48.91 Unspecified atrial fibrillation (principal); R07.89 Other chest pain; R00.2 Palpitations; E78.5 Hyperlipidemia, unspecified
CPT/HCPCS: 92960; 71045; 80053; 83735; 83880; 84436; 84443; 84484; 85025; 85378; 93005; 96361; 96374; 96375; 99285

== ENCOUNTER 2023-11-07 07:39 | Outpatient (CLI) | payer BC, SELFPAY ==
--- NOTE | 2023-11-07 07:39 | NM_ITS ---
APPROVED REPORT Exam: Nuclear Stress Test Indication: HYPERLIPIDEMIA, FM HX, PALPATATIONS, ABN EKG Patient Location: Outpatient Stress Tech: Natalia Hwang [place] Tech:BART Bernal RT(R)(N) Ht: 5 ft 11 in Wt: 330 lbs HR: 68 bpm BP: 130/71 mmHg BSA: 2.61 m2 TID: 1.07 BMI: 46.0 History: HYPERLIPIDEMIA, FM HX, PALPATATIONS, ABN EKG PT COULD NOT LAY ON STOMACH FOR PRONE IMAGES Procedure: Patient received 0.0 mg of intravenous Lexiscan, resting heart rate 68 bpm, resting blood pressure 130/71 mmHg, with Lexiscan maximum heart rate achieved was 93 bpm which is % of the maximum predicted heart rate and blood pressure was 130/71 mmHg. With Lexiscan, patient denied any complaint of chest pain. Cardiac Stress and Resting SPECT Images: Cardiac Stress and Resting SPECT images were obtained using technetium 99m Myoview 32.9 mCi stress and 10.54 mCi at rest. The patient could not lie on his abdomen. Therefore, prone stress imaging could not be performed. This may affect the diagnostic interpretation of the study findings. Resting and stress imaging and supine positions demonstrate a medium sized, moderate, fixed perfusion defect in the basal to mid inferior LV wall. Findings are suggestive of diaphragmatic attenuation, but true perfusion defect cannot be entirely ruled out. Gated imaging demonstrates normal global and regional LV systolic function. LVEF is calculated at 65%. Conclusion: Medium sized, moderate, fixed perfusion defect in the basal to mid inferior LV wall. Findings are suggestive of diaphragmatic attenuation, but true perfusion defect cannot be entirely ruled out. Gated imaging demonstrates normal global and regional LV systolic function. LVEF is calculated at 65%. Electronically signed by : Tona Logan MD 11/08/2023 13:18:58
--- NOTE | 2023-11-07 08:04 | CA_ITS ---
APPROVED REPORT EXAM: Comprehensive 2D, Doppler, and color-flow Echocardiogram Wafer Substrate Tester: Bebe Lozano RVT Ht: 5 ft 11 in Wt: 342lbs BSA: 2.65 BP: 133/66 mmHg Indications: A-FIB,HLD,CARDIOVERTED 10/22/23 Echo Enhancing Agent Indication: Endocardial border delineation Agent(s) / Amount(s) Used: Definity 2 cc 2D Dimensions LA Volume 73.80 mL LA Volume Index 27.85 mL/m2 (M/F) 16-34 EF AP4 38.10 % GL Strain -14.0 % M-Mode Dimensions RVDd 2.68 cm (0.9-2.6) LA Diam 3.81 cm (1.9-4.0) LVDd 4.28 cm (3.5-5.7) LVDs 2.28 cm (3.5-5.7) IVSd 1.87 cm (0.6-1.1) PWd 1.16 cm (0.6-1.1) EF (Teich) 78.50% FS 46.70% EDV (Teich) 82.20 mL ESV (Teich) 17.70 mL LV Diastology E Decel Time 150 (160-240 msec) E/A Ratio 1.3 Aortic Valve TERESE Index 0.96 cm2/m2 AoV Peak Eron. 104.0 (50-130 cm/s) AO Peak GR. 4.40 mmHg AO Mean GR. 2.40 (<5 mmHg) AO VTI 16.1 (18-25 cm) TERESE (VTI) 2.61 (2.5-4.5 cm2) Mitral Valve MV E Max Eron. 83.0 (40-130 cm/s) MV A Velocity 66.0 (40-130 cm/s) E/A Ratio 1.26 MV PHT 44.0 ms Pulmonary Valve PV Peak Velocity 78.0 (50-150 cm/s) Tricuspid Valve TR P. Velocity 187.00 cm/s RAP Estimate 10.00 mmHg RVSP 24.00 mmHg Left Ventricle The left ventricle is normal size. The left ventricular systolic function is normal. The left ventricular ejection fraction is within the normal range. There is increased LV wall thickness. There is normal LV segmental wall motion. The left ventricular diastolic function is normal. No left ventricle thrombus noted on this study. LVEF is 55%. Right Ventricle The right ventricle is mildly dilated. The right ventricular systolic function is normal. Atria The left atrium size is normal. The right atrium size is normal. There is no Doppler evidence of interatrial shunt. Aortic Valve The aortic valve is mildly thickened. There is no aortic valvular stenosis. Trace aortic regurgitation is present. Mitral Valve The mitral valve leaflets are mildly thickened. Trace mitral regurgitation. No evidence of mitral valve stenosis. Tricuspid Valve The tricuspid valve leaflets are thin and pliable. Trace tricuspid regurgitation. There is insufficient TR jet to estimate RVSP. Pulmonic Valve The pulmonary valve is normal in structure. Trace pulmonic regurgitation. Great Vessels The aortic root is normal in size. The ascending aorta is normal in size. IVC is normal in size and collapses >50% with inspiration. Pericardium There is no pericardial effusion. Other Information Study Quality: Technically Difficult Conclusion Technically difficult study due to poor acoustic windows. Normal biventricular systolic function. Mild RV dilation. No significant valvular stenosis or regurgitation. Electronically signed by : Tona Logan MD 11/08/2023 15:00:02
[2023-11-07] MEDS: ISOTOPE MYOVIEW (PER STUDY) 1 DOSE IV (09:12)
[2023-11-07] MEDS: SODIUM CHLORIDE 0.9% 10ML SYR (RAD ONLY) 10 ML IV ×2 (09:12)
[2023-11-07] MEDS: REGADENOSON 0.4MG/5ML SYRINGE 0.400000000000000022 MG IV (09:12)
--- NOTE | 2023-11-07 09:19 | CA_ITS ---
APPROVED REPORT Exam: Pharmacologic Technologist: Natalia Ball, Ht: 5 ft 11 in Wt: 342 lbs BSA: 2.65 m2 HR: 66 bpm BP: 130/71 mmHg Rhythm: NSR Medical History Medications: Simvastatin,,,,, Celecoxib,,,,, ElIQUIS,,,,, Stress Test Details Test: LEXISCAN Reason for pharmacologic stress test: physical limitation. HR Resting HR: 68 bpm Max Heart Rate (APMHR): 159 bpm Max HR Achieved: 93 bpm Target HR (85% APMHR): 135 bpm % of APMHR: 58 Recovery HR: 73 bpm BP Resting BP: 130.0/71.0 mmHg Max BP: 130.0/71.0 mmHg Recovery BP: 122.0/55.0 mmHg ECG Resting ECG: Normal Stress ECG: No significant ST changes Arrhythmia: None Clinical Exercise duration: 04:00 min Highest Stage Achieved: Stress ECG Conclusion Symptoms: Denies Arrhythmias/Ectopy: none ST-T Changes: unremarkable Lexiscan stress test. Myoview images are reported separately. Test Summary REST . . . . . . . Resting REST 04:55 . . 68 . 130/ 71 . . Stage 1 01:00 . . 90 . . . . Stage 2 01:00 . . 88 . . . . Stage 3 01:00 . . 79 . 127/ 60 . . Stage 4 01:00 . . 74 . 124/ 58 . Stop exercise at 04:00 RECOVERY 01:00 . . 74 . . . . RECOVERY 01:39 . . 78 . 122/ 55 . . Electronically signed by : Tona Logan MD 11/08/2023 13:11:24
[2023-11-07] MEDS: DEFINITY US ECHO CONTRAST 2ML INJ 2 MG IV (09:59)
== END 2023-11-07 23:59 ==
LOC: RAD 07:39
PROVIDERS: PCP Family Medicine; Visit Provider Physician Assistant
DX: I48.91 Unspecified atrial fibrillation (principal); I48.0 Paroxysmal atrial fibrillation; R94.31 Abnormal electrocardiogram [ECG] [EKG]
CPT/HCPCS: 78452; 93017; 93018; 93306; A9502; J2785; Q9957

== ENCOUNTER → 2023-12-06 09:00 | Outpatient (CLI) | payer BC, SELFPAY | LOC: SL 12-07 09:03 | PROVIDERS: PCP Family Medicine; Visit Provider Nurse Practitioner Family | DX: G47.33 Obstructive sleep apnea (adult) (pediatric) (principal); G47.36 Sleep related hypoventilation in conditions classified elsewhere | CPT/HCPCS: G0399 ==

== ENCOUNTER 2024-02-10 13:45 | Emergency (ER) | payer BC, SELFPAY ==
[2024-02-10] VITALS (7 sets, daily range): BP systolic 160–180; BP diastolic 81–115; PULSE 54–87; RESP 11–20; TEMP 36.8–36.9; O2SAT 93–97; BMI 46.3
--- NOTE | 2024-02-10 13:47 | ECG_ITS ---
APPROVED REPORT Exam: Resting ECG HR:111 bpm ECG Measurements Heart Rate 111 AXES QRSd 140 QRS -11 QT 371 T 44 QTc 436 Conclusion ATRIAL FIBRILLATION WITH RAPID VENTRICULAR RESPONSE RIGHT BUNDLE BRANCH BLOCK [120+ ms QRS DURATION, UPRIGHT V1, 40+ ms S IN I/aVL/V4/V5/V6] ABNORMAL ECG Electronically signed by : STEVE DUPONT, 02/10/2024 23:20:14
--- NOTE | 2024-02-10 13:50 | HMH.EDGENADL ---
Discharge Plan Disposition Patient Disposition: Home, Self-Care Condition: Good Prescriptions Prescriptions: No Action celecoxib 200 mg capsule 200 mg PO DAILY Patient Comments: TAKE 1 CAPSULE BY MOUTH ONCE DAILY simvastatin 20 mg tablet 20 mg PO HS Patient Comments: TAKE 1 TABLET BY MOUTH EVERY DAY AT BEDTIME Eliquis 5 mg tablet 5 mg PO BID 30 Days Qty: 60 12RF verapamil 240 mg capsule,ext rel. pellets 24 hr 240 mg PO DAILY Qty: 30 12RF Referrals Follow up/Referrals: Hema Casper MD [Primary Care Provider] - See instructions Activity Restrictions/Add. Instructions Additional Instructions/Restrictions: Given that your symptoms have improved and your heart rate is down to normal range, you are stable for discharge at this time. 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 Please return with any new or worsening symptoms. Clinical Impressions Clinical Impression: Atrial fibrillation with rapid ventricular response Instructions Patient Instructions: DI for Atrial Fibrillation Discharge ED Provider: Joby Ricci Adult [facility] General Chief complaint: Arrhythmia/Palpitations Stated complaint: chest pain Time Seen by Provider: 02/10/24 13:50 History of Present Illness HPI narrative: The patient presents with a chief complaint of atrial fibrillation (AFib), which has been ongoing for about an hour. This is the third episode since November. The patient has been under the care of physicians and prescribed medications for AFib management. He reports that these medications have been effective in controlling the condition until today's episode. He denies any syncope, presyncope, or associated chest pain. Symptoms were acute in onset, constant, stable in course. The patient denies any changes in medications, missed doses, or new medications, except for a switch from one cholesterol medication to another due to a conflict with one of the AFib medications. This change occurred two to three weeks ago. He has a history of two previous AFib episodes, one treated with electrical cardioversion and the other resolved after approximately 1-1.5 hours with an unknown medication. Please note that above description of symptoms, in this electronic medical record under categorization of recalled from ER triage doctor by RN are reflective of an initial nursing assessment, however, is not reflective of my full history and physical exam that was personally taken and clarified. Consequentially, this preceding description of symptoms, which may include the patient's categorized chief complaint in the EMR, do not reflect my personal clinical impression, and the ultimate description of history of present illness and patient stated complaints should be deferred to this section of the note. Unless stated otherwise or congruent with this section of the note, additional signs, symptoms, or incongruence should be interpreted as inaccurate with my clinical impression. Related Data Home Medications Medication Instructions Recorded Confirmed celecoxib 200 mg capsule 200 mg PO DAILY 10/24/23 11/14/23 simvastatin 20 mg tablet 20 mg PO HS 10/24/23 11/14/23 Previous Rx's Medication Instructions Recorded apixaban 5 mg tablet (Eliquis) 5 mg PO BID 30 days #60 tabs 11/27/23 verapamil 240 mg 24 hr 240 mg PO DAILY #30 caps 01/08/24 capsule,extended release Allergies Allergy/AdvReac Type Severity Reaction Status Date / Time penicillin G Allergy Verified 11/14/23 10:07 [facility] Disclaimer: The information contained in this section may have been updated after the patient was seen, as this information can be updated by other users. Medical History (Updated 02/10/24 @ 15:42 by Joby Ricci MD) MATT (obstructive sleep apnea) History of cardioversion HLD (hyperlipidemia) Obesity Apnea Snoring Social History Smoking Status: Never smoker alcohol intake: never current occupational status: employed Travel in the last 8 weeks: None ROS Obtained: Yes other As per HPI Physical Exam General General appearance: alert and in no apparent distress Head Head exam: atraumatic and normocephalic Eye Eye exam: Present normal appearance Neck Neck exam: Present normal inspection Chest Chest inspection: Present normal inspection and symmetric chest wall rise Respiratory Respiratory exam: Present normal lung sounds bilaterally; Absent respiratory distress Cardiovascular Cardiovascular exam: Present tachycardia and irregular rhythm Abdominal Exam Abdominal exam: Present soft Neurological Exam Neurological exam: Present alert and oriented X3 Psychiatric Psychiatric exam: Present normal affect and normal mood Skin Skin exam: Present warm and dry Medical Decision Making Medical Records Medical records reviewed: Yes I reviewed the patient's medical records. Alfredito Inquiry Pt receiving controlled substance: No Vital Signs: 02/10/24 13:46 02/10/24 14:00 02/10/24 14:15 Temperature 98.3 F Temperature Source Oral Pulse Rate 68 77 Pulse Rate [Right] 87 Respiratory Rate 20 13 13 Blood Pressure 167/115 H 180/90 H Blood Pressure [Right Arm] 167/115 H Blood Pressure Mean [Right Arm] 132 02 Sat by Pulse Oximetry 97 95 95 Oxygen Delivery Method Room Air 02/10/24 14:31 02/10/24 15:00 02/10/24 15:31 Temperature Temperature Source Pulse Rate 81 54 L Pulse Rate [Right] Respiratory Rate 11 L 11 L 13 Blood Pressure 160/81 H 170/90 H 165/87 H Blood Pressure [Right Arm] Blood Pressure Mean [Right Arm] 02 Sat by Pulse Oximetry 95 93 L Oxygen Delivery Method Room Air 02/10/24 15:52 Temperature 98.4 F Temperature Source Oral Pulse Rate 67 Pulse Rate [Right] Respiratory Rate 20 Blood Pressure 165/87 H Blood Pressure [Right Arm] Blood Pressure Mean [Right Arm] 02 Sat by Pulse Oximetry Oxygen Delivery Method Room Air Lab Data Lab Results 02/10/24 13:41: WBC 9.4, RBC 4.91, Hgb 15.3, Hct 45.2, MCV 92.1, MCH 31.2, MCHC 33.9, RDW 13.5, Plt Count 258, MPV 9.1, Neut % (Auto) 65.9, Lymph % (Auto) 24.3, Fergus % (Auto) 7.0, Eos % (Auto) 2.2, Baso % (Auto) 0.6, Neut # (Auto) 6.2, Lymph # (Auto) 2.3, Fergus # (Auto) 0.7, Eos # (Auto) 0.2, Baso # (Auto) 0.1, Sodium 139, Potassium 4.0, Chloride 109 H, Carbon Dioxide 25, Anion Gap 9.0, BUN 16, Creatinine 0.80, Estimated Creat Clear 82, Estimated GFR 98, Est GFR ( Amer) 119, Glucose 116 H, Calcium 9.9, Phosphorus 3.5, Magnesium 1.9, Total Bilirubin 0.5, AST 36, ALT 29, Alkaline Phosphatase 104, Total Protein 7.3, Albumin 4.3, Globulin 3.0, Albumin/Globulin Ratio 1.4 02/10/24 13:41 02/10/24 13:41 Orders (Tests/Meds): ED MEDICATIONS Discontinued Medications Generic Name Dose Route Start Last Admin Trade Name Freq PRN Reason Stop Dose Admin Diltiazem HCl 20 mg 02/10/24 14:33 02/10/24 15:06 Diltiazem 25mg/5ml Vial IV 02/10/24 14:34 20 mg ONCE ONE Administration Lactated Ringer's 1,000 mls @ 999 mls/hr 02/10/24 14:05 02/10/24 14:23 Lactated Ringer's 1000 Ml Bag IV 02/10/24 15:05 999 mls/hr .Q1H1M ONE Administration Magnesium Sulfate 2 gm in 50 mls @ 50 mls/hr 02/10/24 14:05 02/10/24 14:23 Magnesium Sulfate 2gm/50ml Premix IV 02/10/24 15:04 50 mls/hr ONCE ONE Administration Metoprolol Tartrate 5 mg 02/10/24 14:09 02/10/24 14:23 Metoprolol Tartrate 5mg/5ml Vial IV 02/10/24 14:10 5 mg ONCE ONE Administration ORDERS Category Date Time Status CBC w/Auto Diff [Complete Blood Count Auto Diff] Stat Lab 02/10/24 13:41 Completed CMP [Comprehensive Metabolic Panel] Stat Lab 02/10/24 13:41 Completed MAG [Magnesium] Stat Lab 02/10/24 13:41 Completed PHOS [Phosphorous] Stat Lab 02/10/24 13:41 Completed Medical Decision Narrative: Patient with history and exam per above presenting for evaluation of palpitations Diagnoses considered include known history of atrial fibrillation, electrolyte abnormality, hypovolemia, underlying infection, low clinical index of suspicion for ACS, pulmonary embolism, given patient is anticoagulated, denies any anginal symptoms. ED workup and treatment included: ED MEDICATIONS Discontinued Medications Generic Name Dose Route Start Last Admin Trade Name Freq PRN Reason Stop Dose Admin Diltiazem HCl 20 mg 02/10/24 14:33 02/10/24 15:06 Diltiazem 25mg/5ml Vial IV 02/10/24 14:34 20 mg ONCE ONE Administration Lactated Ringer's 1,000 mls @ 999 mls/hr 02/10/24 14:02/10/24 14:23 Lactated Ringer's 1000 Ml Bag IV 02/10/24 15:05 999 mls/hr .Q1H1M ONE Administration Magnesium Sulfate 2 gm in 50 mls @ 50 mls/hr 02/10/24 14:05 02/10/24 14:23 Magnesium Sulfate 2gm/50ml Premix IV 02/10/24 15:04 50 mls/hr ONCE ONE Administration Metoprolol Tartrate 5 mg 02/10/24 14:09 02/10/24 14:23 Metoprolol Tartrate 5mg/5ml Vial IV 02/10/24 14:10 5 mg ONCE ONE Administration ORDERS Category Date Time Status CBC w/Auto Diff [Complete Blood Count Auto Diff] Stat Lab 02/10/24 13:41 Completed CMP [Comprehensive Metabolic Panel] Stat Lab 02/10/24 13:41 Completed MAG [Magnesium] Stat Lab 02/10/24 13:41 Completed PHOS [Phosphorous] Stat Lab 02/10/24 13:41 Completed Patient's EKG was independently interpreted by me significant for atrial fibrillation with rapid ventricular response, no acute ST changes, tachycardic rate. Labs were independently interpreted by me, significant for no acute findings There is insufficient evidence to warrant imaging at this time. My clinical impression at this time is most consistent with known history of atrial fibrillation. Patient, upon repeat evaluation, reports improvement of symptoms, his rate is in the 60s to 70s at this time. He remains in atrial fibrillation but is amenable to discharge at this time, given he is already anticoagulated, symptoms have resolved, and patient is requesting discharge, he is deemed stable for discharge from the emergency department at this time with cardiology follow-up. I discussed my clinical impression with patient and answered all questions. At this time, the evidence for any other entities in the differential is insufficient to warrant any further testing or ED observation. This was explained to the patient. The patient was advised that persistent or worsening symptoms require further evaluation. I confirmed the patient's understanding of this discussion. Critical Care Critical Care Time Critical Care Time: No
[2024-02-10 14:20] LABS: Alanine Aminotransferase 29 U/L (12-78); Albumin Level 4.3 g/dl (3.5-5.0); Albumin/Globulin Ratio 1.4 (1.1-1.8); Alkaline Phosphatase 104 U/L (38-126); Aspartate Amino Transferase 36 U/L (17-59); Bilirubin,Total 0.5 mg/dl (0.2-1.3); Blood Urea Nitrogen 16 mg/dl (9-20); Calcium 9.9 mg/dl (8.4-10.2); Carbon Dioxide 25 mmol/L (22.0-30.0); Chloride 109 mmol/L (98-107); Creatinine Clearance Estimated 82 mL/min (50-200); Estimated Glomerular Filt Rate 98 ml/min (>60); GFR (African American) 119 ML/MIN (>60); Glucose 116 mg/dl (74-100); Magnesium 1.9 mg/dl (1.6-2.3); Phosphorous 3.5 mg/dl (2.5-4.5); Sodium 139 mmol/L (136-145); Total Protein,Serum 7.3 g/dl (6.3-8.2)
[2024-02-10] MEDS: METOPROLOL TARTRATE 5MG/5ML VIAL 5 MG IV (14:23)
[2024-02-10] MEDS: LACTATED RINGERS 1000ML 1,000 ML 999 ML IV (14:23)
[2024-02-10] MEDS: MAGNESIUM SULFATE IN WATER 2 GM/50 ML PIGGYBACK IV (14:23)
[2024-02-10 14:42] LABS: Basophils # 0.1 K/mm3 (0-0.2); Basophils % 0.6 % (0.1-2.0); Eosinophils # 0.2 K/mm3 (0.0-0.4); Eosinophils % 2.2 % (0.1-12.0); Hematocrit 45.2 % (42.0-52.0); Hemoglobin 15.3 g/dL (14.1-18.0); Lymphocytes # 2.3 K/mm3 (0.7-4.5); Lymphocytes % 24.3 % (10-50); Mean Corpuscular HGB Conc 33.9 g/dL (31.8-35.4); Mean Corpuscular Hemoglobin 31.2 pg (27.0-31.2); Mean Corpuscular Volume 92.1 fl (80-94); Mean Platelet Volume 9.1 fl (7.4-10.4); Monocytes # 0.7 K/mm3 (0.1-1.0); Neutrophils # 6.2 K/mm3 (1.8-7.8); Neutrophils % 65.9 % (37.0-80.0); Platelet Count 258 K/mm3 (142-424); Red Blood Count 4.91 M/mm3 (4.60-6.20); Red Cell Distribution Width 13.5 % (11.5-17.5); White Blood Count 9.4 K/mm3 (4.8-10.8)
[2024-02-10] MEDS: dilTIAZem 25MG/5ML VIAL 20 MG IV (15:06)
--- NOTE | 2024-02-10 15:29 | PC.NURSE ---
rounded on pt no need at this time,call light in reach
== END 2024-02-10 16:00 | disposition home or self-care (01) ==
PROVIDERS: Emergency Provider Emergency Medicine; PCP Family Medicine
DX: I48.91 Unspecified atrial fibrillation (principal); Z79.01 Long term (current) use of anticoagulants
CPT/HCPCS: 80053; 83735; 84100; 85025; 93005; 96365; 96375; 99284; J3475; J7120

== ENCOUNTER 2025-06-05 07:27 | Outpatient (CLI) | payer BC, SELFPAY ==
--- OUTSIDE RECORDS SUMMARY | 2025-06-05 07:29 | XMS_ITS | Clinical Summary ---
[facility] Organization [facility] Address [address] [place] [address] Care Team Providers Care Marketing Writer Name Role Phone Vin Denson MD Primary Care Provider + [phone] Allergies Active Allergy Reactions Criticality Noted Date Comments Penicillins Hives,Rash Low 02/20/2019 Per pt, occurred >40 yrs ago (as of 2021) Medications celecoxib (CeleBREX) 200 MG capsule Take 1 capsule by mouth Daily. Active Eliquis 5 MG tablet tablet Take 1 tablet by mouth Every 12 (Twelve) Hours. 07/16/2024 Active Lipitor 20 MG tablet Take 1 tablet by mouth Daily. 05/20/2024 Active tamsulosin (FLOMAX) 0.4 MG capsule 24 hr capsule Take 1 capsule by mouth Daily. 07/18/2024 Active verapamil ER (VERELAN) 240 MG 24 hr capsule Take 1 capsule by mouth Every Night. 11/20/2023 Active Active Problems Problem Noted Date Diagnosed Date Postoperative pain 03/15/2022 Arthritis of right hip 03/14/2022 S/P total right hip arthroplasty 03/14/2022 Obesity 03/14/2022 Family History Medical History Relation Name Comments Lung cancer Father Diabetes Mother Caitlyn Marino Hypertension Mother Caitlyn Marino Hypertension Sister 1 Monica Phipps Hypertension Sister 2 Monica Phipps Relation Name Status Comments Father Mother Caitlyn Marino Sister 1 Monica Phipps Alive Sister 2 Monica Phipps Alive Social History Tobacco Use Types Packs/Day Years Used Date Smoking Tobacco: Never Smokeless Tobacco: Never Tobacco Cessation:Counseling Given: Not Answered Alcohol Use Standard Drinks/Week Comments No 0 (1 standard drink = 0.6 oz pur e alcohol) AUDIT-C Answer Date Recorded Q1: How often do you have a drink containing alcohol? Never 03/14/2022 Q2: How many drinks containi ng alcohol do you have on a typical day when you are drinking? Patient does not drink Q3: How often do you have si x or more drinks on one occasion? Never 03/14/2022 Sex and Gender Information Value Date Recorded Sex Assigned at Not on file Legal Sex Male 9:25 AM EDT Gender Identity Not on file Sexual Orientation Not on file Last Filed Vital Signs Vital Sign Reading Time Taken Comments Blood Pressure 162/72 10/22/2024 3:50 PM EDT Pulse 74 10/22/2024 3:50 PM EDT Temperature 36.7 C (98 F) 03/15/2022 11:53 AM EDT Respiratory Rate 16 03/15/2022 11:53 AM EDT Oxygen Saturation 97% 10/22/2024 3:50 PM EDT Inhaled Oxygen Concentration - - Weight 150 kg (330 lb 11.2 oz) 10/22/2024 3:50 P M EDT Height 180.3 cm (5' 10.98 ) 10/22/2024 3:50 PM E DT Body Mass Index 46.14 10/22/2024 3:50 PM EDT Plan of Treatment Health Maintenance Due Date Last Done Comments TDAP/TD VACCINES (1 - Tdap) 1981 COLON CANCER SCREENING 5 YEA R SIGMOIDOSCOPY [address] COLONOGRAPHY 2007 FECAL OCCULT BLOOD TEST 2007 FIT Testing (1 year) 2007 Pneumococcal Vaccine 50+ (1 of 1 - PCV) 01/28/2012 ZOSTER VACCINE (1 of 2) 01/28/2012 ANNUAL PHYSICAL 02/20/2019 HEPATITIS C SCREENING 02/20/2019 INFLUENZA VACCINE 03/07/2025 05/22/2024, , 05/25/2021, Additional history exists COLOGUARD 09/26/2026 09/26/2023, 04/29/2019 COLORECTAL CANCER SCREENING 09/26/2026 Medical Devices Implanted Type Area Unit Control Worker Device Identifier Shelf Expiration Date Model / Serial / Lot Shll Acet R3 3h Std 56mm - [id number] Implanted:Q ty: 1 on 03/14/2022 by Sonny Jordan MD at [facility] Implant Right : Hip [employer] 12/10/2031 [id number] / / [id number] Liner Hip Or3o 2/Mobl Sz44/56 - [id number] Implanted:Q ty: 1 on 03/14/2022 by Sonny Jordan MD at [facility] Implant Right : Hip [employer] [id number] 06/21/2030 [id number] / / [id number] Scrw Sph Hd Reflection 6.5x20mm - [id number] Implanted:Q ty: 1 on 03/14/2022 by Sonny Jordan MD at [facility] Implant Right : Hip [employer] [id number] 06/13/2028 [id number] / / [id number] Stem Fem/Hip Polarstem W/Colr Std Sz2 - [id number] Implanted:Q ty: 1 on 03/14/2022 by Sonny Jordan MD at [facility] Implant Right : Hip [employer] 07/13/2028 [id number] / / [id number] Hd Fem/Hip Oxinium Tpr 07/20 28mm Pls0 - [id number] Implanted:Q ty: 1 on 03/14/2022 by Sonny Jordan MD at [facility] Implant Right : Hip [employer] 08/01/2031 [id number] / / [id number] Insrt Hip Or30 2/Mobl Xlpe Sz28/44 - [id number] Implanted:Q ty: 1 on 03/14/2022 by Sonny Jordan MD at [facility] Implant Right : Hip [employer] 12/13/2030 [id number] / / [id number] Totl Hip 2 Mobl Cas[employer] Nephew - [id number] Implanted:Q ty: 1 on 03/14/2022 by Sonny Jordan MD at [facility] Implant Right : Hip [employer] CAPHIPTOALDUALMOBILI TY / / Insurance [address] [id number] [facility] PPO Advance Directives * CPR (Attempt to Resuscitate) (Latest Code Status on File) Date Activated Date Inactivated Comments 03/14/2022 2:22 PM 03/15/2022 4:11 PM Question Answer Comments Code Status (Patient has no pulse and is not breathing): CPR (Attempt to Resuscitate) Medical Interventions (Patie nt has pulse or is breathing): Full Care Teams Marketing Writer Relationship Specialty Start Date End Date iVn Denson MD [address] [place] [facility] [address] [id number] PCP - General Family Medicine 08/07/19
--- OUTSIDE RECORDS SUMMARY | 2025-06-05 07:29 | XMS_ITS | Data Portability ---
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 PLAN: 1. Recheck PSA in three months to ensure it continues to decrease. 2. Continue tamsulosin with refills provided. 3. Discussed the options of MRI and biopsy if PSA levels do not continue to decrease. 4. Patient agreed to a conservative approach with rechecking PSA in three months. [email or web address] Not available 11/19/2024 08:34:40 02/25/2025 02/25/2025 ASSESSMENT: Sorin Vasquez is a 65-year-old male with a history of elevated PSA levels, currently at 4.2, with a percent free PSA of 21.4%. PLAN: 1. Continue monitoring PSA levels. Recheck in six months to evaluate progression. 2. Discussed the option of MRI for further evaluation of the prostate if PSA levels remain elevated or show concerning trends at the next follow-up. 3. Patient education provided regarding PSA levels, percent free PSA, and their implications. 4. Safety-net advice given: patient instructed to call or return to the clinic if any changes or concerns arise. Please note this report was created using voice recognition/text compilation software documentation services during the encounter with the patient. [email or web address] Not available 02/25/2025 09:30:07 Plan of Treatment Reminders Order Date Submit Date Provider Last Modified By Organization Details Last Modified Time Details Appointments SURGERY 15 2024 09:30A M MONY PRIETO MD Not available Not available Not available OV EST 15 2025 09:15A M ROB HARRISON MD Not available Not available Not available Lab vitamin D, 25-hydrox y, total, serum 2024 025 MARIA GUADALUPE [facility], [address], [address], [place], [address], 05/29/2025 10:36:56 vitamin A (retinol) , serum 2024 025 MARIA GUADALUPE [facility], [address], [address], [place], [address], 05/29/2025 10:36:56 vitamin E, serum 2024 025 MARIA GUADALUPE [facility], [address], [address], [place], [address], 05/29/2025 10:36:54 PTH (parathyr oid hormone), intact, serum or plasma 2024 025 MARIA GUADALUPE [facility], [address], [address], [place], [address], 05/29/2025 10:36:57 lipid panel, serum 2024 025 MARIA GUADALUPE [facility], [address], [address], [place], [address], 05/29/2025 10:36:54 HbA1c (hemoglob in A1c), blood 2024 025 MARIA GUADALUPE [facility], [address], [address], [place], [address], 05/29/2025 10:36:55 iron + TIBC + ferritin, serum 2024 025 MARIA GUADALUPE [facility], [address], [address], [place], [address], 05/29/2025 10:36:53 TSH + free T4, serum 2024 025 MARIA GUADALUPE [facility], [address], [address], [place], [address], 05/29/2025 10:36:53 folate, serum 2024 025 MARIA GUADALUPE [facility], [address], [address], [place], [address], 05/29/2025 10:36:55 methylmal belkis, QN, serum or plasma 2024 025 MARIA GUADALUPE [facility], [address], [address], [place], [address], 05/29/2025 10:36:57 thiamine, QN, blood 2024 025 MARIA GUADALUPE [facility], [address], [address], [place], [address], 05/29/2025 10:36:56 CBC w/ auto diff 2024 025 MARIA GUADALUPE [facility], [address], [address], [place], [address], 05/29/2025 10:36:54 CMP, serum or plasma 2024 025 MARIA GUADALUPE [facility], [address], [address], [place], [address], 05/29/2025 10:36:52 PSA, total + free, serum or plasma [id number] (Registration ), [address], [place], [address], 02/25/2025 09:30:07 urinalysi s, dipstick [address] [facility], [address], [place], [address], 02/25/2025 09:30:06 PSA, total + free, serum or plasma 2024 025 [facility] (Registration ), [address], [place], [address], 03/17/2025 15:20:39 urinalysi s, dipstick [address] [facility], [address], [place], [address], 11/19/2024 08:35:07 PSA, total + free, serum or plasma 2023 025 [facility], [address], [place], [address], 02/20/2025 14:21:07 urinalysi s, dipstick [address] [facility], [address], [place], [address], 07/18/2024 09:02:59 Referral None recorded. Procedures bladder scan (PROC) [address] [facility], [address], [place], [address], 02/25/2025 09:30:07 bladder scan (PROC) [address] [facility], [address], [place], [address], 11/19/2024 08:35:07 bladder scan (PROC) [address] [facility], [address], [place], [address], 07/18/2024 09:02:59 Surgeries esophagog astroduod enoscopy (SURG) 2024 025 [email or web address] Mony Prieto MD, [address], [address], [place], [address], 05/23/2025 11:33:23 Imaging XR, chest, 2 view 2024 025 [facility] (Centralized Scheduling), [address], [place], [address], 05/15/2025 12:58:59 electroca rdiogram, routine ECG, 12 leads min 2024 025 [facility] (Centralized Scheduling), [address], [place], [address], 05/22/2025 04:20:10 Medication Orders tamsulosi n 0.4 mg capsule 2024 025 [facility], [address], [place], [address], 11/19/2024 08:35:14 tamsulosi n 0.4 mg capsule 2023 024 [facility], [address], [place], [address], 07/18/2024 09:03:09 Patient Targets Encounter Date Encounter Id Patient Goals Patient Target Last Modified By Organization Details Last Modified Time 05/15/2025 [id number] 1. Eat 3-6 times a day 2. Download [employer] and start keeping food records 3. Wean off Diet Mt. Dew 4. Decrease eating out to 1-2 times a week 5. Look for food triggers and replace with healthy snacks 6. Review manual for meal and snack ideas 7. Physical activity 3 times a week for 20 min, try chair exercises Not available 05/15/2025 13:29:43 Patient InstructionsNo instructions recorded. Reason for Referral None Reported. Results Created Date Observation Date Name Description Value Unit Range Abnormal Flag Note LastModifiedBy Organization Detail LastModifiedTime 07/18/20 24 07/18/2024 urina lysis , dipst ick Leukocytes (reference range) negati ve Not Available [place] [address] [address], [place], [address], 07/18/2024 08:44:28 07/18/20 24 07/18/2024 urina lysis , dipst ick Nitrite (reference range:) negati ve Not Available [place] [address] [address] [facility], [place], [address], 07/18/2024 08:44:28 07/18/20 24 07/18/2024 urina lysis , dipst ick Urobilinogen (reference range) 0.2 Not Available [facility] [place] [address], [place], [address], 07/18/2024 08:44:28 07/18/20 24 07/18/2024 urina lysis , dipst ick Protein (reference range) negati ve Not Available [place] [address] [address] [facility] [address], [place], [address], 07/18/2024 08:44:28 07/18/20 24 07/18/2024 urina lysis , dipst ick pH (reference range 5-8.5) 5.0 Not Available [facility] [place] [address], [place], [address], 07/18/2024 08:44:28 07/18/20 24 07/18/2024 urina lysis , dipst ick Blood (reference range:) negati ve Not Available [place] [address] [address] [facility], [place], [address], 07/18/2024 08:44:28 07/18/20 24 07/18/2024 urina lysis , dipst ick Specific [place] (reference range) 1.010 Not Available [place] [address] [address] [facility], [place], [address], 07/18/2024 08:44:28 07/18/20 24 07/18/2024 urina lysis , dipst ick Ketone (reference range) negati ve Not Available [place] [address] [address] [facility], [place], [address], 07/18/2024 08:44:28 07/18/20 24 07/18/2024 urina lysis , dipst ick Bilirubin (reference range) negati ve Not Available [place] [address] [address] [facility], [place], [address], 07/18/2024 08:44:28 07/18/20 24 07/18/2024 urina lysis , dipst ick Glucose (reference range) negati ve Not Available [place] [address] [address] [facility], [place], [address], 07/18/2024 08:44:28 07/18/20 24 07/18/2024 urina lysis , dipst ick Color (reference range: yellow-brown ) Yellow Not Available [place] [address] [address] [facility], [place], [address], 07/18/2024 08:44:28 07/18/20 24 07/18/2024 bladd er scan (PROC ) Calculated Residual Urine: 62cc Not Available [place] [address] [address] [facility], [place], [address], 07/18/2024 08:44:16 11/20/19 25 11/19/2024 urina lysis , dipst ick Leukocytes (reference range) negati ve Not Available [place] [address] [address] [facility], [place], [address], 11/19/2024 08:24:30 11/20/19 25 11/19/2024 urina lysis , dipst ick Nitrite (reference range:) negati ve Not Available [place] [address] [address] [facility], [place], [address], 11/19/2024 08:24:30 11/20/19 25 11/19/2024 urina lysis , dipst ick Urobilinogen (reference range) 0.2 Not Available [facility] [place] [address] [address] [facility] [address], [place], [address], 11/19/2024 08:24:30 11/20/19 25 11/19/2024 urina lysis , dipst ick Protein (reference range) negati ve Not Available [place] [address] [address] [facility], [place], [address], 11/19/2024 08:24:30 11/20/19 25 11/19/2024 urina lysis , dipst ick pH (reference range 5-8.5) 6.0 Not Available [facility] [place] [address] [address] [facility], [place], [address], 11/19/2024 08:24:30 11/20/19 25 11/19/2024 urina lysis , dipst ick Blood (reference range:) negati ve Not Available [place] [address] [address] [facility] [address], [place], [address], 11/19/2024 08:24:30 11/20/19 25 11/19/2024 urina lysis , dipst ick Specific [place] (reference range) 1.015 Not Available [facility] [place] [facility] [address] [facility], [place], [address], 11/19/2024 08:24:30 11/20/19 25 11/19/2024 urina lysis , dipst ick Ketone (reference range) negati ve Not Available [place] [address] [address] [facility], [place], [address], 11/19/2024 08:24:30 11/20/19 25 11/19/2024 urina lysis , dipst ick Bilirubin (reference range) negati ve Not Available [place] [address] [address] [facility], [place], [address], 11/19/2024 08:24:30 11/20/19 25 11/19/2024 urina lysis , dipst ick Glucose (reference range) negati ve Not Available [place] [address] [address] [facility], [place], [address], 11/19/2024 08:24:30 11/20/19 25 11/19/2024 urina lysis , dipst ick Color (reference range: yellow-brown ) Yellow Not Available [place] [address] [address] [facility], [place], [address], 11/19/2024 08:24:30 11/20/19 25 11/19/2024 bladd er scan (PROC ) Calculated Residual Urine: 23ml Not Available [place] [address] [address] [facility], [place], [address], 11/19/2024 08:24:20 02/19/20 25 02/20/2025 PSA, TOTAL + % FREE (SERI AL) PSA 4.2 NG/mL 0.0-4. 0 high Marylou ECLIA metho dolog y. . Accor ding to the Ameri can [employer]o g[employer] iatio n, Serum PSA shoul d decre ase and remai n at undet ectab le level s after radic al prost atect owen. The AUA defin es bioch emica l recur rence as an initi al PSA value 0.2 ng/mL or great er follo wed by a subse quent confi rmato ry PSA value 0.2 ng/mL or great er. Value s obtai john paul with diffe rent assay metho ds or kits canno t be used inter regalado eably . Resul ts canno t be inter prete d as absol leah evide nce of the prese nce or absen ce of brandi sommers se. Not Available [facility] ([facility]) [address] [facility], [place], [address], 02/20/2025 13:11:19 02/19/20 25 02/20/2025 PSA, TOTAL + % FREE (SERI AL) PSA, free 0.90 NG/mL n/a Marylou ECLIA metho dolog y. Not Available [facility] ([facility]) [address] [facility], [place], [address], 02/20/2025 13:11:19 02/19/20 25 02/20/2025 PSA, TOTAL + % FREE (SERI AL) % free PSA 21.4 % The table below lists the proba bilit y of prost ate cance r for men with non-s uspic ious SHANTAL resul ts and total PSA betwe en 4 and 10 ng/mL , by patie nt age (Leann suggs et al, JESSY 1998, 279:1 542). % Free PSA 50-64 yr 65-75 yr 0.00- 10.00 % 56% 55% 10.01 -15.0 0% 24% 35% 15.01 -20.0 0% 17% 23% 20.01 -25.0 0% 10% 20% >25.0 0% 5% 9% Plekendall e note: Evelina bar al did not make speci fic recom menda tions regar ding the use of perce nt free PSA for any other popul ation of men. Not Available [facility] ([facility]) [address], [place], [address], 02/20/2025 13:11:19 02/19/20 25 02/20/2025 PSA, TOTAL + % FREE (SERI AL) pdf image . Perfo rmed at: [facility] [address] [facility], [place] [address] Lab Direc tor: Jordan miller PhD, Phone : [phone] Perfo rmed at: [facility] [place] [address] [facility] , [place] [address] Lab Direc tor: Fadi Caro [facility] , Phone : [phone] Not Available [facility] ([facility]) [address] [facility], [place], [address], 02/20/2025 13:11:19 02/26/20 25 02/25/2025 urina lysis , dipst ick Leukocytes (reference range) negati ve Not Available [facility] [place] [address] [address] [facility] [address], [place], [address], 02/25/2025 09:10:50 02/26/20 25 02/25/2025 urina lysis , dipst ick Nitrite (reference range:) negati ve Not Available [place] [address] [address] [facility] [address], [place], [address], 02/25/2025 09:10:50 02/26/20 25 02/25/2025 urina lysis , dipst ick Urobilinogen (reference range) 0.2 Not Available [facility] [place] [address] [address] [facility] [address], [place], [address], 02/25/2025 09:10:50 02/26/20 25 02/25/2025 urina lysis , dipst ick Protein (reference range) trace Not Available [facility] [place] [address] [address] [facility] [address], [place], [address], 02/25/2025 09:10:50 02/26/20 25 02/25/2025 urina lysis , dipst ick pH (reference range 5-8.5) 5.0 Not Available [facility] [place] [address], [place], [address], 02/25/2025 09:10:50 02/26/20 25 02/25/2025 urina lysis , dipst ick Blood (reference range:) negati ve Not Available [place] [address] [address] [facility] [address], [place], [address], 02/25/2025 09:10:50 02/26/20 25 02/25/2025 urina lysis , dipst ick Specific [place] (reference range) 1.000 Not Available [facility] [place] [address] [address] [facility] [address], [place], [address], 02/25/2025 09:10:50 02/26/20 25 02/25/2025 urina lysis , dipst ick Ketone (reference range) negati ve Not Available [place] [address] [address] [facility] [address], [place], [address], 02/25/2025 09:10:50 02/26/20 25 02/25/2025 urina lysis , dipst ick Bilirubin (reference range) negati ve Not Available [place] [address] [address] [facility] [address], [place], [address], 02/25/2025 09:10:50 02/26/20 25 02/25/2025 urina lysis , dipst ick Glucose (reference range) negati ve Not Available [place] [address] [address] [facility] [address], [place], [address], 02/25/2025 09:10:50 02/26/20 25 02/25/2025 urina lysis , dipst ick Color (reference range: yellow-brown ) Yellow Not Available [facility] [address], [place], [address], 02/25/2025 09:10:50 02/26/20 25 02/25/2025 bladd er scan (PROC ) Calculated Residual Urine: 43 Not Available [facility] [address], [place], [address], 02/25/2025 09:10:43 05/15/20 25 05/16/2025 CMP14 +EGFR glucose 92 mg/dL 70-99 normal Not Available [facility] ([facility]) [address] [facility], [place], [address], 05/29/2025 10:36:52 05/15/20 25 05/16/2025 CMP14 +EGFR BUN 12 mg/dL 8-27 normal Not Available [facility] ([facility]) [address] [facility], [place], [address], 05/29/2025 10:36:52 05/15/20 25 05/16/2025 CMP14 +EGFR creatinine 0.84 mg/dL 0.76-1 .27 normal Not Available [facility] ([facility]) [address] [facility], [place], [address], 05/29/2025 10:36:52 05/15/20 25 05/16/2025 CMP14 +EGFR eGFR 98 mL/mi n/1.7 3 >59 normal Not Available [facility] ([facility]) [address] [facility], [place], [address], 05/29/2025 10:36:52 05/15/20 25 05/16/2025 CMP14 +EGFR BUN/creatini ne ratio 14 10-24 normal Not Available [facility] ([facility]) [address] [facility], [place], [address], 05/29/2025 10:36:52 05/15/20 25 05/16/2025 CMP14 +EGFR sodium 141 mmol/ L 134-14 4 normal Not Available [facility] ([facility]) [address] [facility] [place], [address], 05/29/2025 10:36:52 05/15/20 25 05/16/2025 CMP14 +EGFR potassium 4.6 mmol/ L 3.5-5. 2 normal Not Available [facility] ([facility]) [address] [facility] [place], [address], 05/29/2025 10:36:52 05/15/2005/16/2025 CMP14 +EGFR chloride 103 mmol/ L 96-106 normal Not Available [facility] ([facility]) [address] [facility] [place], [address], 05/29/2025 10:36:52 05/15/2005/16/2025 CMP14 +EGFR carbon dioxide, total 25 mmol/ L 20-29 normal Not Available [facility] ([facility]) [address] [facility] [place], [address], 05/29/2025 10:36:52 05/15/20 25 05/16/2025 CMP14 +EGFR calcium 9.8 mg/dL 8.6-10 .2 normal Not Available [facility] ([facility]) [address] [place], [address], 05/29/2025 10:36:52 05/15/2005/16/2025 CMP14 +EGFR protein, total 6.9 g/dL 6.0-8. 5 normal Not Available [facility] ([facility]) [address] [place], [address], 05/29/2025 10:36:52 05/15/20 25 05/16/2025 CMP14 +EGFR albumin 4.6 g/dL 3.9-4. 9 normal Not Available [facility] ([facility]) [address] [facility] [place], [address], 05/29/2025 10:36:52 05/15/2005/16/2025 CMP14 +EGFR globulin, total 2.3 g/dL 1.5-4. 5 Not Available [facility] ([facility]) [address] [facility] [place], [address], 05/29/2025 10:36:52 05/15/2005/16/2025 CMP14 +EGFR bilirubin, total 0.5 mg/dL 0.0-1. 2 normal Not Available [facility] ([facility]) [address] [facility] [place], [address], 05/29/2025 10:36:52 05/15/2005/16/2025 CMP14 +EGFR alkaline phosphatase 101 IU/L 47-123 normal Not Available [facility] ([facility]) [address] [facility], [place], [address], 05/29/2025 10:36:52 05/15/2005/16/2025 CMP14 +EGFR AST (SGOT) 21 IU/L 0-40 normal Not Available [facility] ([facility]) [address] [facility], [place], [address], 05/29/2025 10:36:52 05/15/2005/16/2025 CMP14 +EGFR ALT (SGPT) 20 IU/L 0-44 normal Not Available [facility] ([facility]) [address] [facility], [place], [address], 05/29/2025 10:36:52 05/15/2005/16/2025 FE+TI BC+FE R iron bind.cap.(TI BC) 281 ug/dL 250-45 0 normal Not Available [facility] ([facility]) [address] [place], [address], 05/29/2025 10:36:53 05/15/20 25 05/16/2025 FE+TI BC+FE R UIBC 177 ug/dL 111-34 3 normal Not Available [facility] ([facility]) [address] [place], [address], 05/29/2025 10:36:53 05/15/20 25 05/16/2025 FE+TI BC+FE R iron 104 ug/dL 38-169 normal Not Available [facility] ([facility]) [address] [facility], [place], [address], 05/29/2025 10:36:53 05/15/2005/16/2025 FE+TI BC+FE R iron saturation 37 % 15-55 normal Not Available [facility] ([facility]) [address] [place], [address], 05/29/2025 10:36:53 05/15/2005/16/2025 FE+TI BC+FE R ferritin 275 NG/mL 30-400 normal Not Available [facility] ([facility]) [address] [place], [address], 05/29/2025 10:36:53 05/15/20 25 05/16/2025 TSH+F REE T4 TSH 2.690 uIU/m L 0.450- 4.500 normal Not Available [facility] ([facility]) [address] [place], [address], 05/29/2025 10:36:53 05/15/2005/16/2025 TSH+F REE T4 T4,free(dire ct) 1.05 NG/dL 0.82-1 .77 normal Not Available [facility] ([facility]) [address] [place], [address], 05/29/2025 10:36:53 05/15/20 25 05/16/2025 CBC WITH DIFFE RENTI AL/PL ATELE T WBC 6.8 x10e3 /uL 3.4-10 .8 normal Not Available [facility] ([facility]) [address] [facility], [place], [address], 05/29/2025 10:36:53 05/15/20 25 05/16/2025 CBC WITH DIFFE RENTI AL/PL ATELE T RBC 5.21 x10e6 /uL 4.14-5 .80 normal Not Available [facility] ([facility]) [address] [facility], [place], [address], 05/29/2025 10:36:53 05/15/20 25 05/16/2025 CBC WITH DIFFE RENTI AL/PL ATELE T hemoglobin 16.1 g/dL 13.0-1 7.7 normal Not Available [facility] ([facility]) [address] [facility], [place], [address], 05/29/2025 10:36:53 05/15/20 25 05/16/2025 CBC WITH DIFFE RENTI AL/PL ATELE T hematocrit 48.3 % 37.5-5 1.0 normal Not Available [facility] ([facility]) [address] [facility], [place], [address], 05/29/2025 10:36:53 05/15/20 25 05/16/2025 CBC WITH DIFFE RENTI AL/PL ATELE T MCV 93 fL 79-97 normal Not Available [facility] ([facility]) [address] [facility], [place], [address], 05/29/2025 10:36:53 05/15/20 25 05/16/2025 CBC WITH DIFFE RENTI AL/PL ATELE T MCH 30.9 pg 26.6-3 3.0 normal Not Available [facility] ([facility]) [address] [place], [address], 05/29/2025 10:36:53 05/15/20 25 05/16/2025 CBC WITH DIFFE RENTI AL/PL ATELE T MCHC 33.3 g/dL 31.5-3 5.7 normal Not Available [facility] ([facility]) [address] [facility], [place], [address], 05/29/2025 10:36:53 05/15/2005/16/2025 CBC WITH DIFFE RENTI AL/PL ATELE T RDW 12.3 % 11.6-1 5.4 Not Available [facility] ([facility]) [address] [facility], [place], [address], 05/29/2025 10:36:53 05/15/20 25 05/16/2025 CBC WITH DIFFE RENTI AL/PL ATELE T platelets 256 x10e3 /uL 150-45 0 normal Not Available [facility] ([facility]) [address] [facility], [place], [address], 05/29/2025 10:36:53 05/15/20 25 05/16/2025 CBC WITH DIFFE RENTI AL/PL ATELE T neutrophils 58 % not estab. normal Not Available [facility] ([facility]) [address] [facility], [place], [address], 05/29/2025 10:36:53 05/15/20 25 05/16/2025 CBC WITH DIFFE RENTI AL/PL ATELE T lymphs 31 % not estab. normal Not Available [facility] ([facility]) [address] [place], [address], 05/29/2025 10:36:53 05/15/20 25 05/16/2025 CBC WITH DIFFE RENTI AL/PL ATELE T monocytes 8 % not estab. normal Not Available [facility] [facility]) [address] [place], [address], 05/29/2025 10:36:53 05/15/20 25 05/16/2025 CBC WITH DIFFE RENTI AL/PL ATELE T eos 2 % not estab. normal Not Available [facility] ([facility]) [address] [place], [address], 05/29/2025 10:36:53 05/15/20 25 05/16/2025 CBC WITH DIFFE RENTI AL/PL ATELE T basos 0 % not estab. normal Not Available [facility] ([facility]) [address] [facility], [place], [address], 05/29/2025 10:36:53 05/15/20 25 05/16/2025 CBC WITH DIFFE RENTI AL/PL ATELE T immature cells ASSOCIATE PROFESSOR OF PHYSICS Not Available [facility] ([facility]) [address] [facility], [place], [address], 05/29/2025 10:36:53 05/15/20 25 05/16/2025 CBC WITH DIFFE RENTI AL/PL ATELE T neutrophils (absolute) 4.0 x10e3 /uL 1.4-7. 0 normal Not Available [facility] ([facility]) [address] [facility], [place], [address], 05/29/2025 10:36:53 05/15/20 25 05/16/2025 CBC WITH DIFFE RENTI AL/PL ATELE T lymphs (absolute) 2.1 x10e3 /uL 0.7-3. 1 normal Not Available [facility] ([facility]) [address] [place], [address], 05/29/2025 10:36:53 05/15/20 25 05/16/2025 CBC WITH DIFFE RENTI AL/PL ATELE T monocytes(ab solute) 0.5 x10e3 /uL 0.1-0. 9 normal Not Available [facility] ([facility]) [address] [place], [address], 05/29/2025 10:36:53 05/15/20 25 05/16/2025 CBC WITH DIFFE RENTI AL/PL ATELE T eos (absolute) 0.1 x10e3 /uL 0.0-0. 4 normal Not Available [facility] ([facility]) [address] [facility], [place], [address], 05/29/2025 10:36:53 05/15/20 25 05/16/2025 CBC WITH DIFFE RENTI AL/PL ATELE T baso (absolute) 0.0 x10e3 /uL 0.0-0. 2 normal Not Available [facility] ([facility]) [address] [facility], [place], [address], 05/29/2025 10:36:53 05/15/20 25 05/16/2025 CBC WITH DIFFE RENTI AL/PL ATELE T immature granulocytes 0 % not estab. Not Available [facility] ([facility]) [address] [facility], [place], [address], 05/29/2025 10:36:53 05/15/20 25 05/16/2025 CBC WITH DIFFE RENTI AL/PL ATELE T immature grans (abs) 0.0 x10e3 /uL 0.0-0. 1 Not Available [facility] ([facility]) [address] [facility], [place], [address], 05/29/2025 10:36:53 05/15/20 25 05/16/2025 CBC WITH DIFFE RENTI AL/PL ATELE T NRBC ASSOCIATE PROFESSOR OF PHYSICS Not Available [facility] ([facility]) [address] [facility], [place], [address], 05/29/2025 10:36:53 05/15/20 25 05/16/2025 CBC WITH DIFFE RENTI AL/PL ATELE T hematology comments: ASSOCIATE PROFESSOR OF PHYSICS Not Available [facility] ([facility]) [address] [facility], [place], [address], 05/29/2025 10:36:53 05/15/20 25 05/16/2025 LIPID PANEL cholesterol, total 155 mg/dL 100-19 9 normal Not Available [facility] ([facility]) [address] [place], [address], 05/29/2025 10:36:54 05/15/20 25 05/16/2025 LIPID PANEL triglyceride s 91 mg/dL 0-149 normal Not Available [facility] ([facility]) [address] [facility], [place], [address], 05/29/2025 10:36:54 05/15/20 25 05/16/2025 LIPID PANEL HDL cholesterol 45 mg/dL >39 normal Not Available [facility] ([facility]) [address] [facility], [place], [address], 05/29/2025 10:36:54 05/15/2005/16/2025 LIPID PANEL VLDL cholesterol tori 17 mg/dL 5-40 Not Available [facility] ([facility]) [address] [facility], [place], [address], 05/29/2025 10:36:54 05/15/20 25 05/16/2025 LIPID PANEL LDL chol calc [facility]) 93 mg/dL 0-99 Not Available [facility] ([facility]) [address] [facility], [place], [address], 05/29/2025 10:36:54 05/15/20 25 05/16/2025 LIPID PANEL 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 9 Refer ence inter vals for alpha and gamma -toco phero l deter mined from [facility] Nutri tion Exami natio n Surve y, 2004- 2005. Indiv idual s with alpha -toco phero l level s less than 5.0 mg/L are consi dered vitam in E defic ient. Not Available [facility] ([facility]) [address] [facility], [place], [address], 05/29/2025 10:36:54 05/15/2005/16/2025 HEMOG LOBIN A1C hemoglobin A1C 6.0 % 4.8-5. 6 above high normal Predi abete s: 5.7 - 6.4 Diabe deja: >6.4 Glyce irene contr ol for adult s with diabe deja: <7.0 Not Available [facility] ([facility]) [address] [facility], [place], [address], 05/29/2025 10:36:55 05/15/2005/16/2025 FOLAT E (FOLI C ACID) , SERUM folate (folic acid), serum 10.6 NG/mL >3.0 normal A serum folat e ludin ntrat ion of less than 3.1 ng/mL is consi dered to repre sent clini tori defic iency . Not Available [facility] ([facility]) [address] [facility], [place], [address], 05/29/2025 10:36:55 05/15/2005/29/2025 VITAM IN A, SERUM vitamin A 37.0 ug/dL 22.0-6 9.5 Refer ence inter vals for vitam in A deter mined from [facility] inter nal studi es. Indiv idual s with vitam in A less than 20 ug/dL are consi dered vitam in A defic ient and those with serum ludin ntrat ions less than 10 ug/dL are consi dered sever live defic ient. This test was devel oped and its perfo rmanc e homero cteri stics deter mined by [facility]. It has not been clear ed or appro annette by the Food and Drug Admin istra tion. Not Available [facility] ([facility]) [address] [facility], [place], [address], 05/29/2025 10:36:56 05/15/20 25 05/16/2025 VITAM IN D, 25-HY DROXY vitamin D, 25-hydroxy 36.1 NG/mL 30.0-1 00.0 Vitam in D defic iency has been defin ed by the Insti tute of Medic ine and an Endoc rine Socie ty pract ice guide line as a level of serum 25-OH vitam in D less than 20 ng/mL (1,2) . The Endoc rine Socie ty went on to furth er defin e vitam in D insuf ficie ncy as a level betwe en 21 and 29 ng/mL (2). 1. IOM (Inst itute of Medic ine). 2010. Blake ry refer ence jayashree es for calci um and D. Chago francois DC: The [facility] Press . 2. Rochelle burks MF, Julianne zayas [place], Ana Laura off-F errar i FLORES, et al. Evalu ation , treat ment, and preve ntion of vitam in D defic iency : an Endoc rine Socie ty clini tori pract ice guide line. JCEM. 2010; 96(7) :1911 -30. Not Available [facility] ([facility]) [address] [facility], [place], [address], 05/29/2025 10:36:56 05/15/20 25 05/19/2025 VITAM IN B1 (THIA MINE) , BLOOD vit. B1, whole blood 127.7 nmol/ L 66.5-2 00.0 Not Available [facility] ([facility]) [address] [facility], [place], [address], 05/29/2025 10:36:56 05/15/20 25 05/25/2025 METHY LMALO LIZBETH ACID, SERUM methylmaloni c acid, serum 202 nmol/ L 0-378 Not Available [facility] ([facility]) [address], [place], [address], 05/29/2025 10:36:57 05/15/2005/16/2025 PTH, INTAC T PTH, intact 30 pg/mL 15-65 normal Not Available [facility] ([facility]) [address] [facility], [place], [address], 05/29/2025 10:36:57 05/15/2005/15/2025 XR, chest , 2 view [facility] [address] [place] [address] Phone: Fax: Name: SORIN VASQUEZ Exam Date: : [birth year] Age 65 years Gender : M Access ion: [id number] Physic migel: NANCY MOONEY Facili ty: [facility] Facili ty HSV: Outpat ient Exam: CHEST 2 VIEWS EXAM: XR CHEST 2 VIEWS INDICA TION: preop COMPAR JIN: None availa ble. _ FINDIN GS: Normal cardio medias tinal silhou ette. No acute airspa ce diseas e, pneumo thorax , or pleura l effusi on. No acute osseou s abnorm ality. _ IMPRES JASPAL: * No acute cardio pulmon jaleesa findin gs. Electr onical ly signed by: Marin Le MD 2024 12:53 PM EDT RP Workst ation: [id number] Dictat ed By: MARIN LE Transc ribed By: Transc ribed On: 12:53 PM Electr onical ly signed by: MARIN LE Thank you for referr SORIN Hamm to [facility]. Legall y authen ticate d by KELLY Kennedy 2024-08 12:53: 51 CC'ed Logic: Orderi ng Provid er: PILE HEATHE R Attend ing Provid er: PILE HEATHE R Admitt ing Provid er: PILValerie HEATAMANDA R MARIA GUADALUPE [facility] [address] [facility], [place], [address], 05/20/2025 16:59:01 Result Notes Documentation Provider Name and Address Organization Details Recorded Time Xr, Chest, 2 View : [facility] [address] [place] [address] Name: SORIN VASQUEZ Exam Date: 05/15/2025 : 1960 Age 65 years Gender: M Physician: ROBERTO CARLOS MOONEY Facility: [facility] Facility HSV: Outpatient Exam: CHEST 2 VIEWS EXAM: XR CHEST 2 VIEWS INDICATION: preop COMPARISON: None available. FINDINGS: Normal cardiomediastinal silhouette. No acute airspace disease, pneumothorax, or pleural effusion. No acute osseous abnormality. IMPRESSION: * No acute cardiopulmonary findings. Electronically signed by: Kavitha Le MD 05/15/2025 12:53 PM EDT Dictated By: KAVITHA LE Transcribed By: Transcribed On: 05/15/2025 12:53 PM Electronically signed by: KAVITHA LE 05/15/2025 Thank you for referring SORIN VASQUEZ to [facility]. Legally authenticated by KELLY PLUMMER 2025-05-15 12:53:51 CC'ed Logic: Ordering Provider: JESICA AZEVEDO Attending Provider: JESICA AZEVEDO Admitting Provider: ABRAM Vallecillo [address] [facility], [place], [address], [facility] & [place] 05/20/2025 15:52:00 Problems Name Problem SNOMED Code Status Onset Date Resolution Date Notes Provider Name and Address Organization Details Recorded Time Prostate specific antigen above reference range 737217215 Active 2023 ROB HARRISON MD [address], [place], [address] , [place] - [facility] - [place] & [place] 5 08:34:33 Nocturia 631642947 Active 2023 Jessica Crase null, [place] [facility] & [place] 4 08:45:51 Hyperchole sterolemia 77850864 Active 2023 Jessica Crase null, [place] [facility] - [place] & [place] 4 08:46:01 Sleep apnea 43798419 Active 2023 Jessica Crase null, [place] [facility] [place] & [place] 4 08:46:10 Irregular heart beat 048820150 Active 2023 Jessica Crase null, [place] [facility] & [place] 4 08:46:32 Prostate specific antigen above reference range 227917275 Active 2023 ROB HARRISON MD [address], [place], [address] , [place] - [facility] - [place] & [place] 5 08:34:33 Lower urinary tract symptoms due to benign prostatic hypertroph y 1711727061073 1 Active 2023 ROB HARRISON MD [address], [place], [address] , [place] - [facility] - [place] & [place] 4 09:02:11 Benign prostatic hyperplasi a with outflow obstructio n 492891341 Active 2024 ROB HARRISON MD [address], [place], [address] , [place] - [facility] - [place] & [place] 5 08:34:28 Essential hypertensi on 49825197 Active 2024 ABRAM [place] [address], [place], [address] , [place] - [facility] - [place] & [place] 10:25:24 Atrial fibrillati on 69572319 Active [address], [facility] [address] [place], [place] [address]NT [facility] & [place] 10:25:35 Hyperlipid emia 02444188 Active [address], [facility] [address] , [facility] & [place] 5 10:25:49 Disorder of function of stomach 461209249 [facility] [address] , [facility] & [place] 5 10:26:49 Obesity 018095581 [facility] [address] , [facility] & [place] 10:26:12 Severe obesity 1104368159372 4 Active 2024 [facility] [address] [place] [address] & [place] 5 10:26:39 Obstructiv e sleep apnea syndrome 59577329 Active 20[facility] [address] , [facility] & [place] 5 10:28:11 Problem Notes None recorded. Procedures Surgical History Date Name Laterality Status Provider Name and Address Organization Details Recorded Time Shoulder joint surgery completed ABRAM [address], [facility] [address], [place] - [facility] & [place] 05/15/2025 10:27:33 vasectomy completed Lizett Haddad [facility] & [place] 07/08/2024 16:18:43 total replacement of hip completed Johny Ortiz [place] - [facility] & [place] 05/15/2025 08:14:07 Imaging Results None recorded. Procedure Notes None recorded. Medical Equipment None Reported. Allergies Allergen ID Allergen Name Allergen Category Reaction Reaction Severity Criticality Documentation Date Start Date Code Code System Note Provider Name and Address Organization Details Recorded Time 965222 Product containin g penicilli n (product) medicatio n hives Not available Not available 07/08/2024 72868 8001 SNOMED cep ok ABRAM V[place] [address], [place], [address], [facility] - [facility] & [place] 10:25:05 Medications Name Sig Start Date Stop Date Status Note LastModified by Organization Details LastModified Time celecoxib 200 mg capsule TAKE 1 CAPSULE BY MOUTH ONCE DAILY active Not Available Not Available No t Available Miralax 17 gram/dose oral powder Take by oral route. 05/15 completed Not Available Not Available Not Available promethazin e-DM 6.25 mg-15 mg/5 mL oral syrup TAKE 5 ML BY MOUTH EVERY 6 HOURS NEEDED 05/15 completed Not Available Not Available Not Available atorvastati n 20 mg tablet TAKE 1 TABLET BY MOUTH ONCE DAILY active Not Available Not Available No t Available benzonatate 200 mg capsule TAKE 1 CAPSULE BY MOUTH THREE TIMES DAILY NEEDED 05/15 completed Not Available Not Available Not Available tamsulosin 0.4 mg capsule TAKE 1 CAPSULE BY MOUTH ONCE DAILY IN THE EVENING active Not Available Not Available No t Available simvastatin 20 mg tablet TAKE 1 TABLET BY MOUTH EVERY DAY AT BEDTIME 05/15 completed Not Available Not Available Not Available erythromyci n 5 mg/gram (0.5 %) eye ointment APPLY ONE APPLICATI ON INTO THE LOWER EYELID OF AFFECTED EYE FOUR TIMES DAILY 05/15 completed Not Available Not Available Not Available Metamucil 58.6 % oral powder Take by oral route. 05/15 completed Not Available Not Available Not Available verapamil ER (SR) 240 mg tablet,exte nded release Take 1 tablet every day by oral route. 05/15 completed Not Available Not Available Not Available verapamil ER 240 mg 24 hr capsule,ext ended release TAKE 1 CAPSULE BY MOUTH ONCE DAILY active Not Available Not Available No t Available Align (B.infantis ) 4 mg capsule Take by oral route. 05/15 completed Not Available Not Available Not Available Eliquis 5 mg tablet TAKE 1 TABLET BY MOUTH TWICE DAILY active Not Available Not Available No t Available Vitals Date Recorded Body height Body mass index (BMI) Body weight Oxygen saturation Oxygen saturation in Arterial blood by Pulse oximetry Heart rate Systolic And Diastolic Provider Name and Address Organization Details Last Updated DateTime 5 180.34 cm 46.3 kg/m2 847052. 67 g 98 % 98 % 87 /min 142/82 mm[Hg] [facility] [place] 5 08:23:58 Date Recorded Body height Body mass index (BMI) Body weight Oxygen saturation Oxygen saturation in Arterial blood by Pulse oximetry Heart rate Systolic And Diastolic Provider Name and Address Organization Details Last Updated DateTime 5 180.34 cm 46.6 kg/m2 915677. 85 g 97 % 97 % 72 /min 144/74 mm[Hg] Lizett Haddad [place] - [facility] & [place] 5 09:10:32 Date Recorded Body height Body mass index (BMI) Body weight Heart rate Body temperature Systolic And Diastolic Provider Name and Address Organization Details Last Updated DateTime 5 180.34 cm 48.9 kg/m2 112571. 84 g 70 /min 97 [degF] 168/86 mm[Hg] Johny Dickerson kirsten MA - NT [facility] & [place] 5 08:20:06 Date Recorded Body height Body mass index (BMI) Body weight Body temperature Oxygen saturation Oxygen saturation in Arterial blood by Pulse oximetry Heart rate Systolic And Diastolic Provider Name and Address Organization Details Last Updated DateTime 4 180.34 cm 43.7 kg/m2 058471. 57 g 98.7 [degF] 99 % 99 % 72 /min 132/70 mm[Hg] Jessica William MA - NT [facility] & [place] 4 08:41:26 Social History Question Answer Notes LastModified by Organizat ion Details LastModified Time Tobacco Smoking Status Never Smoker Lizett Haddad null, [place] - [facility] & [place] 07/08/2024 16:19:26 What Is Your Level Of Caffeine Consumption? Occasional Information not available 07/08/2024 Sex: Unknown Functional Status Question Answer Note LastModified by Organizat ion Details LastModified Time Do you use any illicit or recreational drugs? No Information not available 07/08/2024 What is your level of alcohol consumption? None Information not available 07/08/2024 Mental Status None recorded. Family History Relationship Description Onset Age of this Age Resolved Age Notes LastModified by Organization Details LastModified Time Mother Diabetes mellitus [email or web address] Not available 04/2025 08:07:53 Mother Essential hypertension [email or web address] Not available 1 08:07:53 Mother Disorder of endocrine system pt. added direct ly (07/15) [email or web address] Not available 07/15/2024 10:17:19 Mother Hypertensive disorder pt. added direct ly (07/15) [email or web address] Not available 07/15/2024 10:17:36 Mother Obesity pt. added direct ly (07/15) [email or web address] Not available 07/15/2024 10:18:03 Sister Disorder of endocrine system pt. added direct ly (07/15) [email or web address] Not available 07/15/2024 10:18:18 Sister Heart disease pt. added direct ly (07/15) [email or web address] Not available 07/15/2024 10:18:51 Sister Cerebrovascu lar accident pt. added direct ly (07/15) [email or web address] Not available 07/15/2024 10:19:18 Sister Hypertensive disorder pt. added direct ly (07/15) [email or web address]-13 Not available 07/15/2024 10:19:49 Medical History Condition Response Bleeding Disorder N Reflux/GERD N Sleep Apnea Y High Cholesterol Y Liver Disease N Heart Disease Y Pulmonary Embolism N Deep Vein Thrombosis N Hypertension Y Kidney Disease N Past Encounters Encounter ID Performer Location Encounter Start Date Encounter Closed Date Diagnosis/Indication Diagnosis SNOMED-CT Code Diagnosis ICD10 Code Diagnosis IMO Codes Diagnosis Note [id number] ROB HARRISON MD [facility] Urology-1 00 [address] [facility] [address] [place] [address] 07/18/2024 08:23:23 07/18/2024 09:04:28 Prostate specific antigen above reference range 213695889 R97.20 we reviewed the risks and benefits of PSA screening as well as its limitation s. Based on his levels, I explained that he was above what we would expect for his age match peers. We have discussed 3 options with prostate biopsy being recommende wilfredo estes options include serial check in 4 months versus prostate MRI with 4K score. Patient elects to repeat PSA in 4 months. We discussed the potential risk of delay in diagnosis in the event that the PSA remains elevated or continues to rise. He verbalized his understand ing. Lower urin jaleesa tract symptoms due to benign prostatic hypertrophy 0872541780 9101 N40.1 We will start the patient on tamsulosin 0.4 mg at bedtime. Side effect profile including orthostati c hypotensio n and retrograde ejaculatio n were reviewed. [id number] ROB HARRISON MD [facility] Urology-1 00 [address] [facility] [address] [place] [address] 11/19/2024 08:13:21 11/19/2024 08:36:48 Benign prostatic hyperplasia with outflow obstruction 418781197 N40.1 238048 Prostate s pecific antigen above reference range 863373614 R97.20 [id number] ROB HARRISON MD [facility] Urology-1 00 [address] [facility] [address] [place] [address] 02/25/2025 08:56:10 02/25/2025 09:30:58 Benign prostatic hyperplasia with outflow obstruction 340624263 N40.1 112750 Prostate s pecific antigen above reference range 139247528 R97.20 [id number] ABARM V[place] [facility] B[facility]ric s and Adv Surg [address] [facility] [address] [place] [address] 05/15/2025 07:42:59 05/15/2025 10:47:27 Disorder of function of stomach 932679094 K31.89 Pre-surger y evaluation 964488903 Z01.818 Obesity screening 017204 005 Z13.89 Essential hypertension 39486672 I10 72498 Atrial fibrillation 4943 6004 I48.91 Z79.01 73861634 Hyperlipidemia 01452233 E78.5 08159306 Severe obesity 645342809 1 9104 E66.813 Z68.42 5190357747 Weight loss surgery options discussed at length with patient today. We discussed sleeve versus BPD/duoden al switch/ DEREK-S. I feel like the best surgery option for this patient is BPD/ duodenal switch/ DEREK-S given current BMI and comorbidit ies The patient will be scheduled for the following. Initial intake lab work, cardiac clearance, and EGD. All risks complicati ons and alternativ es of the upper endoscopy were discussed with the patient and agreed upon. These include but are not limited to, over sedation, bleeding, perforatio n.Patient will be educated by the surgical weight loss team regarding if any medical managed weight loss will be required and they will follow this according to their recommenda tions.kennedy ent will follow-up in office after all testing has been completed Obstructiv e sleep apnea syndrome 43972015 G47.[id number], LD [facility] Bariatric s and Adv Surg [address] [facility] [place] [address] 05/15/2025 10:46:55 05/15/2025 12:01:12 Morbid obesity 539554141 E66.01 14849 BMI 48.9 Health Concerns Section Related Observation LastModified by Organization Detai ls LastModified Time None Recorded Concern Status LastModified by Organization Details LastModified Time None Recorded Advance Directives Directive None Recorded Payers Insurance Date Sequence Insurance Name Policy Number Policy Mcmahan Covered Member ID Mcmahan Member ID Guarantor Name 05/12/2025 1 [place] [id number] Sorin Vasquez [id number] Sorin Vasquez Notes Date Note Type Note Provider Name and Address Organization Details Recorded Time 07/18/2024 text/html ROS as noted in the HPI 07/11/24 64-year-old male referred by Dr. Vin Lee for elevatedPSA 5.12on 06/22/2024. October 2023 PSA 4.8. Outside records indicate that the patient is currently onEliquisfor history of atrial fibrillation, This is managed by Dr. Cr Cardiology at [facility]. For 3-4 months, patient describes urinary hesitancy with occasional decreased force of stream. He was experiencing nocturia 2-3 times per night, though he attributes this to high fluid intake as he has been actively trying to lose weight. Otherwise, patient denies any family history of malignancies. 06/22/24 PSA 5.12, fPSA 19.1%06/22/24 Cr 0.78, GFR 3489210/06/23 PSA 4.8 ROB HARRISON MD [address] [facility], [place], [address], [facility] [place] & [place] 07/18/2024 09:07:04 11/19/2024 text/html 11/19/24 CC: [id number] returns to my office for PSA results and follow up lower urinary tract symptoms due to benign prostatic hypertrophy. Sorin Vasquez is a 64-year-old male who presents for a follow-up visit. The patient has been taking tamsulosin, which has significantly decreased his sense of urgency to urinate. He no longer experiences dribbling or spotting in his shorts. There have been no negative side effects such as dizziness or lightheadedness. The patient had a PSA test done yesterday, and the results show a decrease from 5.1 to 4.1, with a percent free PSA of 22%. ----- [id number]/[id number] male referred by Dr. Vin Lee for elevated PSA 5.12 on 06/22/2024. October 2023 PSA 4.8. Outside records indicate that the patient is currently on Eliquis for history of atrial fibrillation, This is managed by Dr. Cr Cardiology at [facility].For 3-4 months, patient describes urinary hesitancy with occasional decreased force of stream. He was experiencing nocturia 2-3 times per night, though he attributes this to high fluid intake as he has been actively trying to lose weight.Otherwise, patient denies any family history of malignancies. 06/22/24 PSA 5.12, fPSA 19.1%06/22/24 Cr 0.78, GFR 6109110/06/23 PSA 4.8 ROB HARRISON MD [address] [facility], [place], [address], [facility] [place] [facility] [place] 11/19/2024 08:36:27 02/25/2025 text/html 02/18/25 Patient returns to my office for PSA results and follow up lower urinary tract symptoms due to BPH. Sorin Vasquez is a 65-year-old male who presents for a follow-up visit. PSA levels have been monitored and are currently at 4.2, which is lower than previous readings but still slightly above the expected threshold of 3.5 for his age. Percent free PSA is at 21.4%, which is considered relatively good, though some guidelines suggest it should be 25% or higher. He has a history of elevated PSA levels, and this is the lowest reading since monitoring began. He reports getting up once per night to use the bathroom, which is considered normal. He attributes this to late meals during a busy summer schedule. No other urinary symptoms or concerns were mentioned. --------- 11/19/24 CC: [id number]-male returns to my office for PSA results and follow up lower urinary tract symptoms due to benign prostatic hypertrophy.Sorin Vasquez is a 64-year-old male who presents for a follow-up visit. The patient has been taking tamsulosin, which has significantly decreased his sense of urgency to urinate. He no longer experiences dribbling or spotting in his shorts. There have been no negative side effects such as dizziness or lightheadedness. The patient had a PSA test done yesterday, and the results show a decrease from 5.1 to 4.1, with a percent free PSA of 22%. - [id number] male referred by Dr. Vin Lee for elevated PSA 5.12 on 06/22/2024. October 2023 PSA 4.8. Outside records indicate that the patient is currently on Eliquis for history of atrial fibrillation, This is managed by Dr. Cr Cardiology at [facility].For 3-4 months, patient describes urinary hesitancy with occasional decreased force of stream. He was experiencing nocturia 2-3 times per night, though he attributes this to high fluid intake as he has been actively trying to lose weight.Otherwise, patient denies any family history of malignancies. 02/18/25 PSA 4.2, fPSA 21.4%06/22/24 PSA 5.12, fPSA 19.1%06/22/24 Cr 0.78, GFR 50603/08/30 PSA 4.8 ROB HARRISON MD [address] [facility], [place], [address], [facility] & [place] 03/03/2025 09:07:58 05/15/2025 text/html ROS as noted in the HPI Patient presents today for the initial evaluation with an interest in bariatric surgery. Patients first choice for bariatric surgery is BPD/ duodenal Switch Current BMI 48.9Pt has been overweight most of their life. Has been 100lbs or more over weight for __ years. Pt reports dyspnea joint pain and mobility issues related to excess weight.The pt is pursuing weight loss surgery because excess weight directly contributes to comorbidities including HTN HLD afib chronicDiets include calorie counting high protein/low carb diet. Pt site physical hunger and boredom as prompts to eat. Struggles with portion size. DIET HX:The patient states that they have been overweight since childhoodThe patient states that they have been 100 lbs or more overweight 40 years.The patient started dieting at the age of 32Dieting methods that have been most successful in losing weight are low carbThe most weight ever lost on a single dieting attempt was 46lbs and this was maintained until 6 monthsThe patient has attempted the following unsupervised diet attempts calorie counting, high protein, low fat, meal replacementsThe Patient has followed the following supervised diet attempts WW, dietitian supervisedThe following OTC or prescribed medications have been utilized for weight loss noneBehavior treatments for weight loss that have been attempted in the past were noneThe patient has utilized the following modes of exercise to help with weight loss noneThe patient has not use self induced behaviors to help them lose weight in the past.Currently the patient admits to an eating history of eating large meals at one sitting, skipping meals, snacking in the day and evening and late at night.The patient feels that the majority of their meals are prepared from restaurants.Common triggers for causing the patient to overeat are physical hunger, boredom, helps me handle stress. ABRAM Vail [address], [place], [address], [facility] & [place] 05/15/2025 13:16:10 05/15/2025 text/html Intake Template RDN met w/ EDE Kat 1960, who is a 65 YO to complete initial nutritional assessment for intake of bariatric surgery. Pt is interested in DS. Height = 71in. Weight = 350.7# (BMI =48.9 ). PMH significant for Afib, high cholesterol, HTN, MATT Past weight loss attempts: Ubaldo estrada for wt loss, SHELBIE, Hector, fabiana, Everardo, Wecelena Hx of eating disorder: No Prescription diet pills: No Herbal supplements: No Vitamins: No Meal Pattern: B: breakfast agustinich, Dt Mt. DewL: sometimes skips, chicken salad sandD: Eats out Icelandic, chicken stripsSnacks: not a lot, chips, pb pretzels Eating out: 5-6 times a week Beverages: Diet Mt. Dew 16.9 oz- 2/day, Water - 2-3 bottles Alcoholic consumption: No Smoking/Tobacco: No Exercise: limited, bad knees Recent changes: None Motivation for surgery: Health, to get knee replacements Support after surgery: Goals for surgery: 240# Additional Notes:Weigh-Ins Needed: NoneWeigh-Ins Scheduled: RDN recommendations:1. Eat 3-6 times a day2. Download [employer] and start keeping food records3. Wean off Diet Mt. Dew4. Decrease eating out to 1-2 times a week5. Look for food triggers and replace with healthy snacks6. Review manual for meal and snack ideas7. Physical activity 3 times a week for 20 min, try chair exercises Pt verbally agreeable to recommendations. Denied having further questions/concerns. RDN concludes that pt is a candidate for sx at this time. RDN will f/up and monitor PRN. JUD MCGUIRE RD, LD [address], [place], [address], [facility] [place] [facility] [place] 05/15/2025 13:30:14
--- OUTSIDE RECORDS SUMMARY | 2025-06-05 07:29 | XMS_ITS | Clinical Summary ---
Author Organization [facility] Address [address] [place] [address] Care Team Providers Care Stock Control Supervisor Name Role Phone Vin Denson MD Primary Care Provider + [phone] Social History Tobacco Use Types Packs/Day Years Used Date Smoking Tobacco: Never Assessed Sex and Gender Information Value Date Recorded Sex Assigned at Not on file Legal Sex Male 6:08 PM EDT Gender Identity Not on file Sexual Orientation Not on file Plan of Treatment Not on file Care Teams Stock Control Supervisor Relationship Specialty Start Date End Date Vin Denson MD [address] [facility] [address] [place] [address] PCP - General 12/18/20
--- OUTSIDE RECORDS SUMMARY | 2025-06-05 07:29 | XMS_ITS | Continuity of Care Document ---
Author Organization [place] [facility] Address [address] [place] [address] Care Team Providers Care Human Performance Consultant Name Role Phone ANA M LEE Primary Care Provider Assessment No assessment recorded. Plan of Treatment Reminders Order Date Submit Date Provider Last Modified By Organization Details Last Modified Time Details Appointments SURGERY 15 2024 09:30A M RENETTA PONCE MD Not available Not available Not available OV EST 15 2025 09:15A M ROB HARRISON MD Not available Not available Not available Lab None recorded . Referral None recorded . Procedures None recorded . Surgeries None recorded . Imaging None recorded . Medication Orders None recorded . Patient Targets Encounter Date Encounter Id Patient Goals Patient Target Last Modified By Organization Details Last Modified Time 05/15/2025 1. Eat 3-6 times a day 2. Download [employer] and start keeping food records 3. Wean off Diet Mt. Dew 4. Decrease eating out to 1-2 times a week 5. Look for food triggers and replace with healthy snacks 6. Review manual for meal and snack ideas 7. Physical activity 3 times a week for 20 min, try chair exercises [email or web address] Not available 05/15/2025 13:29:43 Patient InstructionsNo instructions recorded. Reason for Referral None Reported. Results Created Date Observation Date Name Description Value Unit Range Abnormal Flag Note LastModifiedBy Organization Detail LastModifiedTime 05/15/2005/16/2025 CMP14 +EGFR glucose 92 mg/dL 70-99 normal Not Available [facility] ([facility] [place] [facility] [address], [place], [address], 05/29/2025 10:36:52 05/15/20 25 05/16/2025 CMP14 +EGFR BUN 12 mg/dL 8-27 normal Not Available [facility] ([facility] [place] [place] [facility] [address] [place], [address], 05/29/2025 10:36:52 05/15/20 25 05/16/2025 CMP14 +EGFR creatinine 0.84 mg/dL 0.76-1 .27 normal Not Available [facility] ([facility] [place] [place] [facility] [address] [place], [address], 05/29/2025 10:36:52 05/15/2005/16/2025 CMP14 +EGFR eGFR 98 mL/mi n/1.7 3 >59 normal Not Available [facility] ([facility] [place] [place] [facility] [address] [place], [address], 05/29/2025 10:36:52 05/15/20 25 05/16/2025 CMP14 +EGFR BUN/creatini ne ratio 14 10-24 normal Not Available [facility] ([facility] [place] [place] [facility] [address] [place], [address], 05/29/2025 10:36:52 05/15/20 25 05/16/2025 CMP14 +EGFR sodium 141 mmol/ L 134-14 4 normal Not Available [facility] ([facility] [place] [place] [facility] [address] [place], [address], 05/29/2025 10:36:52 05/15/20 25 05/16/2025 CMP14 +EGFR potassium 4.6 mmol/ L 3.5-5. 2 normal Not Available [facility] ([facility] [place] [place] [facility] [address] [place], [address], 05/29/2025 10:36:52 05/15/20 25 05/16/2025 CMP14 +EGFR chloride 103 mmol/ L 96-106 normal Not Available [facility] ([facility] [place] [place] [facility] [address] [place], [address], 05/29/2025 10:36:52 05/15/2005/16/2025 CMP14 +EGFR carbon dioxide, total 25 mmol/ L 20- normal Not Available [facility] ([facility] [place] [place] [facility] [address], [place], [address], 05/29/2025 10:36:52 05/15/2005/16/2025 CMP14 +EGFR calcium 9.8 mg/dL 8.6-10 .2 normal Not Available [facility] ([facility] [place] [place] [facility] [address], [place], [address], 05/29/2025 10:36:52 05/15/2005/16/2025 CMP14 +EGFR protein, total 6.9 g/dL 6.0-8. 5 normal Not Available [facility] ([facility] [place] [place] [facility] [address], [place], [address], 05/29/2025 10:36:52 05/15/2005/16/2025 CMP14 +EGFR albumin 4.6 g/dL 3.9-4. 9 normal Not Available [facility] ([facility] [place] [place] [facility] [address], [place], [address], 05/29/2025 10:36:52 05/15/2005/16/2025 CMP14 +EGFR globulin, total 2.3 g/dL 1.5-4. 5 Not Available [facility] ([facility] [place] [place] [facility] [address] [place], [address], 05/29/2025 10:36:52 05/15/2005/16/2025 CMP14 +EGFR bilirubin, total 0.5 mg/dL 0.0-1. 2 normal Not Available [facility] ([facility] [place] [place] [facility] [address] [place], [address], 05/29/2025 10:36:52 05/15/20 25 05/16/2025 CMP14 +EGFR alkaline phosphatase 101 IU/L 47-123 normal Not Available [facility] ([facility] [place] [place] [facility] [address] [place], [address], 05/29/2025 10:36:52 05/15/20 25 05/16/2025 CMP14 +EGFR AST (SGOT) 21 IU/L 0-40 normal Not Available [facility] ([facility] [place] [place] [facility] [address] [place], [address], 05/29/2025 10:36:52 05/15/2005/16/2025 CMP14 +EGFR ALT (SGPT) 20 IU/L 0-44 normal Not Available [facility] ([facility] [place] [place] [facility] [address] [place], [address], 05/29/2025 10:36:52 05/15/20 25 05/16/2025 FE+TI BC+FE R iron bind.cap.(TI BC) 281 ug/dL 250-45 0 normal Not Available [facility] ([facility] [place] [place] [facility] [address] [place], [address], 05/29/2025 10:36:53 05/15/20 25 05/16/2025 FE+TI BC+FE R UIBC 177 ug/dL 111-34 3 normal Not Available [facility] ([facility] [place] [place] [facility] [address] [place], [address], 05/29/2025 10:36:53 05/15/2005/16/2025 FE+TI BC+FE R iron 104 ug/dL 38-169 normal Not Available [facility] ([facility] [place] [place] [facility] [address] [place], [address], 05/29/2025 10:36:53 05/15/20 25 05/16/2025 FE+TI BC+FE R iron saturation 37 % 15-55 normal Not Available [facility] ([facility] [place] [place] [facility] [address] [place], [address], 05/29/2025 10:36:53 05/15/2005/16/2025 FE+TI BC+FE R ferritin 275 NG/mL 30-400 normal Not Available [facility] ([facility] [place] [place] [facility] [address], [place], [address], 05/29/2025 10:36:53 05/15/20 25 05/16/2025 TSH+F REE T4 TSH 2.690 uIU/m L 0.450- 4.500 normal Not Available [facility] ([facility] [place] [place] [facility] [address] [place], [address], 05/29/2025 10:36:53 05/15/2005/16/2025 TSH+F REE T4 T4,free(dire ct) 1.05 NG/dL 0.82-1 .77 normal Not Available [facility] ([facility] [place] [place] [facility] [address] [place], [address], 05/29/2025 10:36:53 05/15/20 25 05/16/2025 CBC WITH DIFFE RENTI AL/PL ATELE T WBC 6.8 x10e3 /uL 3.4-10 .8 normal Not Available [facility] ([facility] [place] [place] [facility] [address] [place], [address], 05/29/2025 10:36:53 05/15/2005/16/2025 CBC WITH DIFFE RENTI AL/PL ATELE T RBC 5.21 x10e6 /uL 4.14-5 .80 normal Not Available [facility] ([facility] [place] [place] [facility] [address] [place], [address], 05/29/2025 10:36:53 05/15/20 25 05/16/2025 CBC WITH DIFFE RENTI AL/PL ATELE T hemoglobin 16.1 g/dL 13.0-1 7.7 normal Not Available [facility] ([facility] [place] [place] [facility] [address] [place], [address], 05/29/2025 10:36:53 05/15/2005/16/2025 CBC WITH DIFFE RENTI AL/PL ATELE T hematocrit 48.3 % 37.5-5 1.0 normal Not Available [facility] ([facility] [place] [place] [facility] [address], [place], [address], 05/29/2025 10:36:53 05/15/2005/16/2025 CBC WITH DIFFE RENTI AL/PL ATELE T MCV 93 fL 79-97 normal Not Available [facility] ([facility] [place] [place] [facility] [address] [place], [address], 05/29/2025 10:36:53 05/15/20 25 05/16/2025 CBC WITH DIFFE RENTI AL/PL ATELE T MCH 30.9 pg 26.6-3 3.0 normal Not Available [facility] ([facility] [place] [place] [facility] [address], [place], [address], 05/29/2025 10:36:53 05/15/2005/16/2025 CBC WITH DIFFE RENTI AL/PL ATELE T MCHC 33.3 g/dL 31.5-3 5.7 normal Not Available [facility] ([facility] [place] [place] [facility] [address] [place], [address], 05/29/2025 10:36:53 05/15/2005/16/2025 CBC WITH DIFFE RENTI AL/PL ATELE T RDW 12.3 % 11.6-1 5.4 Not Available [facility] ([facility] [place] [place] [facility] [address] [place], [address], 05/29/2025 10:36:53 05/15/20 25 05/16/2025 CBC WITH DIFFE RENTI AL/PL ATELE T platelets 256 x10e3 /uL 150-45 0 normal Not Available [facility] ([facility] [place] [place] [facility] [address] [place], [address], 05/29/2025 10:36:53 05/15/20 25 05/16/2025 CBC WITH DIFFE RENTI AL/PL ATELE T neutrophils 58 % not estab. normal Not Available [facility] ([facility] [place] [place] [facility] [address], [place], [address], 05/29/2025 10:36:53 05/15/2005/16/2025 CBC WITH DIFFE RENTI AL/PL ATELE T lymphs 31 % not estab. normal Not Available [facility] ([facility] [place] [place] [facility] [address], [place], [address], 05/29/2025 10:36:53 05/15/2005/16/2025 CBC WITH DIFFE RENTI AL/PL ATELE T monocytes 8 % not estab. normal Not Available [facility] ([facility] [place] [place] [facility] [address], [place], [address], 05/29/2025 10:36:53 05/15/20 25 05/16/2025 CBC WITH DIFFE RENTI AL/PL ATELE T eos 2 % not estab. normal Not Available [facility] ([facility] [place] [place] [facility] [address], [place], [address], 05/29/2025 10:36:53 05/15/20 25 05/16/2025 CBC WITH DIFFE RENTI AL/PL ATELE T basos 0 % not estab. normal Not Available [facility] ([facility] [place] [place] [facility] [address], [place], [address], 05/29/2025 10:36:53 05/15/20 25 05/16/2025 CBC WITH DIFFE RENTI AL/PL ATELE T immature cells TRANSPLANT NURSE PRACTITIONER Not Available [facility] ([facility] [place] [place] [facility] [address] [place], [address], 05/29/2025 10:36:53 05/15/20 25 05/16/2025 CBC WITH DIFFE RENTI AL/PL ATELE T neutrophils (absolute) 4.0 x10e3 /uL 1.4-7. 0 normal Not Available [facility] ([facility] [place] [place] [facility] [address] [place], [address], 05/29/2025 10:36:53 05/15/20 25 05/16/2025 CBC WITH DIFFE RENTI AL/PL ATELE T lymphs (absolute) 2.1 x10e3 /uL 0.7-3. 1 normal Not Available [facility] ([facility] [place] [place] [facility] [address] [place], [address], 05/29/2025 10:36:53 05/15/20 25 05/16/2025 CBC WITH DIFFE RENTI AL/PL ATELE T monocytes(ab solute) 0.5 x10e3 /uL 0.1-0. 9 normal Not Available [facility] ([facility] [place] [place] [facility] [address] [place], [address], 05/29/2025 10:36:53 05/15/20 25 05/16/2025 CBC WITH DIFFE RENTI AL/PL ATELE T eos (absolute) 0.1 x10e3 /uL 0.0-0. 4 normal Not Available [facility] ([facility] [place] [place] [facility] [address] [place], [address], 05/29/2025 10:36:53 05/15/20 25 05/16/2025 CBC WITH DIFFE RENTI AL/PL ATELE T baso (absolute) 0.0 x10e3 /uL 0.0-0. 2 normal Not Available [facility] ([facility] [place] [place] [facility] [address] [place], [address], 05/29/2025 10:36:53 05/15/20 25 05/16/2025 CBC WITH DIFFE RENTI AL/PL ATELE T immature granulocytes 0 % not estab. Not Available [facility] ([facility] [place] [place] [facility] [address] [place], [address], 05/29/2025 10:36:53 05/15/20 25 05/16/2025 CBC WITH DIFFE RENTI AL/PL ATELE T immature grans (abs) 0.0 x10e3 /uL 0.0-0. 1 Not Available [facility] ([facility] [place] [place] [facility] [address], [place], [address], 05/29/2025 10:36:53 05/15/20 25 05/16/2025 CBC WITH DIFFE RENTI AL/PL ATELE T NRBC TRANSPLANT NURSE PRACTITIONER Not Available [facility] ([facility] [place] [place] [facility] [address], [place], [address], 05/29/2025 10:36:53 05/15/2005/16/2025 CBC WITH DIFFE RENTI AL/PL ATELE T hematology comments: TRANSPLANT NURSE PRACTITIONER Not Available [facility] ([facility] [place] [place] [facility] [address], [place], [address], 05/29/2025 10:36:53 05/15/20 25 05/16/2025 LIPID PANEL cholesterol, total 155 mg/dL 100-19 9 normal Not Available [facility] ([facility] [place] [place] [facility] [address], [place], [address], 05/29/2025 10:36:54 05/15/20 25 05/16/2025 LIPID PANEL triglyceride s 91 mg/dL 0-149 normal Not Available [facility] ([facility] [place] [place] [facility] [address], [place], [address], 05/29/2025 10:36:54 05/15/20 25 05/16/2025 LIPID PANEL HDL cholesterol 45 mg/dL >39 normal Not Available [facility] ([facility] [place] [place] [facility] [address], [place], [address], 05/29/2025 10:36:54 05/15/20 25 05/16/2025 LIPID PANEL VLDL cholesterol troi 17 mg/dL 5-40 Not Available [facility] ([facility] [place] [place] [facility] [address] [place], [address], 05/29/2025 10:36:54 05/15/2005/16/2025 LIPID PANEL LDL chol calc ([facility]) 93 mg/dL 0-99 Not Available [facility] ([facility] [place] [place] [facility] [address], [place], [address], 05/29/2025 10:36:54 05/15/2005/16/2025 LIPID PANEL LDL calc comment: TRANSPLANT NURSE PRACTITIONER Not Available [facility] ([facility] [place] [place] [facility] [address], [place], [address], 05/29/2025 10:36:54 05/15/2005/29/2025 VITAM IN E vitamin E(alpha tocopherol) 9.5 mg/L 9.0-29 .0 Not Available [facility] ([facility] [place] [place] [facility] [address], [place], [address], 05/29/2025 10:36:54 05/15/2005/29/2025 VITAM IN E vitamin E(gamma tocopherol) 1.7 mg/L 0.5-4. 9 Refer ence inter vals for alpha and gamma -toco phero l deter mined from [facility] Nutri tion Exami natio n Surve y, 2004- 2005. Indiv idual s with alpha -toco phero l level s less than 5.0 mg/L are consi dered vitam in E defic ient. Not Available [facility] ([facility] [place] [place] [facility] [address] [place], [address], 05/29/2025 10:36:54 05/15/2005/16/2025 HEMOG LOBIN A1C hemoglobin A1C 6.0 % 4.8-5. 6 above high normal Predi abete s: 5.7 - 6.4 Diabe deja: >6.4 Glyce irene contr ol for adult s with diabe deja: <7.0 Not Available [facility] ([facility] [place] [place] [facility] [address] [place], [address], 05/29/2025 10:36:55 05/15/2005/16/2025 FOLAT E (FOLI C ACID) , SERUM folate (folic acid), serum 10.6 NG/mL >3.0 normal A serum folat e ludin ntrat ion of less than 3.1 ng/mL is consi dered to repre sent clini tori defic iency . Not Available [facility] ([facility] [place] [place] [facility] [address], [place], [address], 05/29/2025 10:36:55 05/15/2005/29/2025 VITAM IN A, SERUM [...] e homero cteri stics deter mined by [employer]. It has not been clear ed or appro annette by the Food and Drug Admin istra tion. Not Available [facility] ([facility] [place] [place] [facility] [address], [place], [address], 05/29/2025 10:36:56 05/15/2005/16/2025 VITAM IN D, 25-HY DROXY vitamin D, 25-hydroxy 36.1 NG/mL 30.0-1 00.0 Vitam in D defic iency has been defin ed by the Insti maegan of Medic ine and an Endoc rine [...] IOM (Inst itute of Medic ine). 2010. Dieta ry refer ence jayashree es for calci um and D. Chago francois [place]: The [facility] . 2. Rochelle burks MF, Julianne zayas [place], Ana Laura off-F errar i FLORES, et al. Evalu ation , treat ment, and preve ntion of vitam in D defic iency : an Endoc rine Socie ty clini tori pract ice guide line. JCEM. 2010; 96(7) :1911 -30. Not Available [facility] ([facility] [place] [place] [facility] [address], [place], [address], 05/29/2025 10:36:56 05/15/20 25 05/19/2025 VITAM IN B1 (THIA MINE) , BLOOD vit. B1, whole blood 127.7 nmol/ L 66.5-2 00.0 Not Available [facility] ([facility] [place] [place] [facility] [address] [place], [address], 05/29/2025 10:36:56 05/15/20 25 05/25/2025 METHY LMALO LIZBETH ACID, SERUM methylmaloni c acid, serum 202 nmol/ L 0-378 Not Available [facility] ([facility] [place] [place] [facility] [address] [place], [address], 05/29/2025 10:36:57 05/15/20 25 05/16/2025 PTH, INTAC T PTH, intact 30 pg/mL 15-65 normal Not Available [facility] ([facility] [place] [place] [facility] [address] [place], [address], 05/29/2025 10:36:57 05/15/20 25 05/15/2025 XR, chest , 2 view [facility] [address] [place] [address] Phone: Fax: Name: GENOVEVA VASQUEZ Exam Date: 025 : [birth year] Age 65 years Gender : M Access ion: [id number] Physic migel: NANCY MOONEY Facili ty: [facility] Facili ty HSV: Outpat ient Exam: [...] Electr onical ly signed by: MARIN LE 025 Thank you for referr GENOVEVA Hamm to [facility]. Legall y authstacie ticate d by KELLY Kennedy 2024-08 12:53: 51 CC'ed Logic: Orderi ng Provid er: JESICA Maldonado Attend ing Provid er: JESICA Maldonado Admitt ing Provid er: JESICA Maldonado MARIA GUADALUPE [facility] - [facility] [address] [place] [address], [address], 05/20/2025 16:59:01 Result Notes Documentation Provider Name and Address Organization Details Recorded Time Xr, Chest, 2 View : [address] [address] Name: GENOVEVA VASQUEZ Exam Date: 05/15/2025 : 1960 Age 65 years Gender: M Physician: ROBERTO CARLOS MOONEY Facility: [facility] Facility HSV: Outpatient Exam: CHEST 2 VIEWS EXAM: XR CHEST 2 VIEWS INDICATION: preop COMPARISON: None available. FINDINGS: Normal cardiomediastinal silhouette. No acute airspace disease, pneumothorax, or pleural effusion. No acute osseous abnormality. IMPRESSION: * No acute cardiopulmonary findings. Electronically signed by: Marcella Le MD 05/15/2025 12:53 PM EDT RP Dictated By: MARCELLA LE Transcribed By: Transcribed On: 05/15/2025 12:53 PM Electronically signed by: MARCELLA LE 05/15/2025 Thank you for referring GENOVEVA VASQUEZ to [facility]. Legally authenticated by KELLY PLUMMER 2025-05-15 12:53:51 CC'ed Logic: Ordering Provider: JESICA AZEVEDO Attending Provider: JESICA AZEVEDO Admitting Provider: ABRAM Vallecillo [address], [place], [address], [place] [facility] - [place] & [place] 05/20/2025 15:52:00 Problems Name Problem SNOMED Code Status Onset Date Resolution Date Notes Provider Name and Address Organization Details Recorded Time Prostate specific antigen above reference range 395928509 Active 2023 ROB HARRISON MD [address], [place], [address] , [place] [facility] [place] [facility] [place] 5 08:34:33 Nocturia 920236317 Active 2023 Jessica Crase null, [place] [facility] [place] 4 08:45:51 Hyperchole sterolemia 02355549 Active 2023 Jessica Crase null, [place] [facility] [place] 4 08:46:01 Sleep apnea 34931635 Active 2023 Jessicakai William null, [place] [facility] [place] [facility] [place] 4 08:46:10 Irregular heart beat 052377628 Active 2023 Jessica William null, [place] [facility] [place] & [place] 4 08:46:32 Prostate specific antigen above reference range 640168165 Active 2023 ROB HARRISON MD [address], [place], [address] , [place] [facility] [place] & [place] 5 08:34:33 Lower urinary tract symptoms due to benign prostatic hypertroph y 3762095973712 1 Active 2023 ROB HARRISON MD [address], [place], [address] , [place] [facility] [place] & [place] 4 09:02:11 Benign prostatic hyperplasi a with outflow obstructio n 696563129 Active 2024 ROB HARRISON MD [address], [place], [address] , [place] [facility] [place] & [place] 5 08:34:28 Essential hypertensi on 12692432 Active 2024 ABRAM Vail [address], [place], [address] , [place] [facility] [place] [facility] [place] 5 10:25:24 Atrial fibrillati on 13580062 Active 2024 ABRAM Vail [address], [place], [address] , [place] [facility] [place] & [place] 5 10:25:35 Hyperlipid emia 79712049 Active 2024 ABRAM Vail [address], [place], [address] , [place] [facility] [place] & [place] 5 10:25:49 Disorder of function of stomach 297735777 Active 2024 ABRAM Vail [address], [place], [address] , [place] [facility] [place] & [place] 5 10:26:49 Obesity 175257735 Active 2024 ABRAM Vail [address], [place], [address] , [facility] & [place] 10:26:12 Severe obesity 2385605073786 4 Active 2024 ABRAM Vail [address], [facility] [address] , [facility] & [place] 5 10:26:39 Obstructiv e sleep apnea syndrome 25377682 Active [address], [facility] [address] , [facility] & [place] 10:28:11 Problem Notes None recorded. Procedures Surgical History Date Name Laterality Status Provider Name and Address Organization Details Recorded Time Shoulder joint surgery completed ABR[address], [facility] [address], [facility] & [place] 05/15/2025 10:27:33 vasectomy completed Lizett Haddad [facility] & [place] 07/08/2024 16:18:43 total replacement of hip completed Johny Ortiz [facility] & [place] 05/15/2025 08:14:07 Imaging Results None recorded. Procedure Notes None recorded. Medical Equipment None Reported. Allergies Allergen ID Allergen Name Allergen Category Reaction Reaction Severity Criticality Documentation Date Start Date Code Code System Note Provider Name and Address Organization Details Recorded Time 303672 Product containin g penicilli n (product) medicatio n hives Not available Not available 07/08/2024 90260 [address] ce[address] ok [address], [place], [address], [facility] & [place] 5 10:25:05 Medications Name Sig Start Date Stop [...] Updated DateTime 5 180.34 cm 48.9 kg/m2 499595. 84 g 70 /min 97 [degF] 168/86 mm[Hg] Johny curtis [facility] & [place] 08:20:06 Social History Question Answer Notes LastModified by Organizat ion Details LastModified Time Tobacco Smoking Status Never Smoker Lizett Haddad null, [facility] - [facility] & [place] 07/08/2024 16:19:26 What Is Your Level Of [...] Organization Details LastModified Time Mother Diabetes mellitus Not available 04/2025 08:07:53 Mother Essential hypertension [email or web address] Not available 1 08:07:53 Mother Disorder of [...] ICD10 Code Diagnosis IMO Codes Diagnosis Note ABRAM [facility] [address] [facility] [address] [place] [address] 05/15/2025 07:42:59 05/15/2025 10:47:27 Disorder of function of stomach 287961442 K31.89 Pre-surger y evaluation 095112313 Z01.818 Obesity screening 911247 005 Z13.89 Essential hypertension 90799235 I10 20059 Atrial fibrillation 4943 6004 I48.91 Z79.01 26027986 Hyperlipidemia 84070320 E78.5 47074640 Severe obesity 627619217 1 9104 E66.813 Z68.42 7118214211 Weight loss surgery options discussed at length [...] been completed Obstructiv e sleep apnea syndrome 33449792 G47.[id number], LD [facility] [address] [facility] [address] [place] [address] 05/15/2025 10:46:55 05/15/2025 12:01:12 Morbid obesity 554926067 E66.01 98594 BMI 48.9 Health Concerns Section Related Observation LastModified by Organization Detai ls LastModified Time None Recorded Concern Status LastModified by Organization Details LastModified Time None Recorded Payers Encounter Date Sequence Insurance Name Policy Number Policy Mcmahan Covered Member ID Mcmahan Member ID Guarantor Name 05/15/2025 1 [employer] [id number] Genoveva Vasquez [id number] Genoveva Vasquez Notes Date Note Type Note Provider Name and Address Organization Details Recorded Time 05/15/2025 text/html ROS as noted in the [...] boredom, helps me handle stress. ABRAM Vail [address], [place], [address], [facility] - [place] - [place] & [place] 05/15/2025 13:16:10 05/15/2025 text/html Intake Template DEANNN met w/ EDE Kat 1960, who is a 65 YO to complete initial nutritional assessment for intake of bariatric surgery. Pt is interested in DS. Height = 71in. Weight = 350.7# (BMI =48.9 ). PMH significant for Afib, high cholesterol, HTN, MATT Past weight loss attempts: Ubaldo estrada for wt loss, WW, Hector, fabiana, Saxenda, Lina Hx of eating disorder: No Prescription diet pills: No Herbal supplements: No Vitamins: No Meal Pattern: B: breakfast sandwhich, Dt Mt. DewL: sometimes skips, chicken salad sandD: Eats out Indian, chicken stripsSnacks: not a lot, chips, pb [...] and monitor PRN. [address], [place] [id number], [place], [id number], [facility] - [place] & [place] 05/15/2025 13:30:14
--- OUTSIDE RECORDS SUMMARY | 2025-06-05 07:29 | XMS_ITS | Continuity of Care Document ---
Author Organization [place] - [facility] & Formerly [facility] Address [address] [place] [address] Care Team Providers Care Pugger Helper Name Role Phone ANA M LEE Primary Care Provider Assessment No assessment recorded. Plan of Treatment Reminders Order Date Submit Date Provider Last Modified By Organization Details Last Modified Time Details Appointments SURGERY 15 2024 09:30A M RENETTA PRIETO MD Not available Not available Not available OV EST 15 2025 09:15A M ROB HARRISON MD Not available Not available Not available Lab vitamin D, 25-hydrox y, total, serum 2024 025 MARIA GUADALUPE Lableonarda, [address], [address], [place], [address], 05/29/2025 10:36:56 vitamin A (retinol) , serum 2024 025 MARIA GUADALUPE L[place]onarda, [address], [address], [place], [address], 05/29/2025 10:36:56 vitamin E, serum 2024 025 MARIA GUADALUPE Londono, [address], [address], [place], [address], 05/29/2025 10:36:54 PTH (parathyr oid hormone), intact, serum or plasma 2024 025 MARIA GUADALUPE Londono, [address], [address], [place], [address], 05/29/2025 10:36:57 lipid panel, serum 2024 025 MARIA GUADALUPE [facility], [address], [address], [place], [address], 05/29/2025 10:36:54 HbA1c (hemoglob in A1c), blood 2024 025 MARIA GUADALUPE [facility], [address], [address], [place], [address], 05/29/2025 10:36:55 iron + TIBC + ferritin, serum 2024 025 MARIA GUADALUPE [facility], [address], [address], [place], [address], 05/29/2025 10:36:53 TSH + free T4, serum 2024 025 MARIA GUADALUPE [facility], [address], [address], [place], [address], 05/29/2025 10:36:53 folate, serum 2024 025 MARIA GUADALUPE [facility], [address], [address], [place], [address], 05/29/2025 10:36:55 methylmal belkis, QN, serum or plasma 2024 025 MARIA GUADALUPE [facility], [address], [address], [place], [address], 05/29/2025 10:36:57 thiamine, QN, blood 2024 025 MARIA GUADALUPE [facility], [address], [address], [place], [address], 05/29/2025 10:36:56 CBC w/ auto diff 2024 HOLLINS [facility], [address], [address], [place], [address], 05/29/2025 10:36:54 CMP, serum or plasma 2024 HOLLINS [facility], [address], [address], [place], [address], 05/29/2025 10:36:52 Referral None recorded. Procedures None recorded. Surgeries esophagog astroduod enoscopy (SURG) 2024 Renetta Prieto MD, [address], [address], [place], [address], 05/23/2025 11:33:23 Imaging XR, chest, 2 view 2024 [facility] (Centralized Scheduling), [address] [facility], [place], [address], 05/15/2025 12:58:59 electroca rdiogram, routine ECG, 12 leads min 2024 [facility] (Centralized Scheduling), [address] [facility], [place], [address], 05/22/2025 04:20:10 Medication Orders None recorded. Patient TargetsNo targets recorded. Patient InstructionsNo instructions recorded. Reason for Referral None Reported. Results Created Date Observation Date Name Description Value Unit Range Abnormal Flag Note LastModifiedBy Organization Detail LastModifiedTime 05/15/2005/16/2025 CMP14 +EGFR glucose 92 mg/dL 70-99 normal Not Available [facility] ([facility]) [address] [facility], [place], [address], 05/29/2025 10:36:52 05/15/2005/16/2025 CMP14 +EGFR BUN 12 mg/dL 8-27 normal Not Available [facility] ([facility]) [address] [facility], [place], [address], 05/29/2025 10:36:52 05/15/20 25 05/16/2025 CMP14 +EGFR creatinine 0.84 mg/dL 0.76-1 .27 normal Not Available [facility] ([facility]) [address] [facility], [place], [address], 05/29/2025 10:36:52 05/15/20 25 05/16/2025 CMP14 +EGFR eGFR 98 mL/mi n/1.7 3 >59 normal Not Available [facility] ([facility]) [address] [facility], [place], [address], 05/29/2025 10:36:52 05/15/2005/16/2025 CMP14 +EGFR BUN/creatini ne ratio 14 10-24 normal Not Available [facility] ([facility]) [address] [facility], [place], [address], 05/29/2025 10:36:52 05/15/20 25 05/16/2025 CMP14 +EGFR sodium 141 mmol/ L 134-14 4 normal Not Available [facility] ([facility]) [address] [facility], [place], [address], 05/29/2025 10:36:52 05/15/20 25 05/16/2025 CMP14 +EGFR potassium 4.6 mmol/ L 3.5-5. 2 normal Not Available [facility] ([facility]) [address] [facility], [place], [address], 05/29/2025 10:36:52 05/15/2005/16/2025 CMP14 +EGFR chloride 103 mmol/ L 96-106 normal Not Available [facility] ([facility]) [address] [facility], [place], [address], 05/29/2025 10:36:52 05/15/20 25 05/16/2025 CMP14 +EGFR carbon dioxide, total 25 mmol/ L 20-29 normal Not Available [facility] ([facility]) [address] [facility] [place], [address], 05/29/2025 10:36:52 05/15/2005/16/2025 CMP14 +EGFR calcium 9.8 mg/dL 8.6-10 .2 normal Not Available [facility] ([facility]) [address] [place], [address], 05/29/2025 10:36:52 05/15/2005/16/2025 CMP14 +EGFR protein, total 6.9 g/dL 6.0-8. 5 normal Not Available [facility] ([facility]) [address] [facility] [place], [address], 05/29/2025 10:36:52 05/15/2005/16/2025 CMP14 +EGFR albumin 4.6 g/dL 3.9-4. 9 normal Not Available [facility] ([facility]) [address] [place], [address], 05/29/2025 10:36:52 05/15/2005/16/2025 CMP14 +EGFR globulin, total 2.3 g/dL 1.5-4. 5 Not Available [facility] ([facility]) [address] [facility] [place], [address], 05/29/2025 10:36:52 05/15/2005/16/2025 CMP14 +EGFR bilirubin, total 0.5 mg/dL 0.0-1. 2 normal Not Available [facility] ([facility]) [address] [facility] [place], [address], 05/29/2025 10:36:52 05/15/2005/16/2025 CMP14 +EGFR alkaline phosphatase 101 IU/L 47-123 normal Not Available [facility]) [address] [facility] [place], [address], 05/29/2025 10:36:52 05/15/20 25 05/16/2025 CMP14 +EGFR AST (SGOT) 21 IU/L 0-40 normal Not Available [facility] ([facility]) [address] [place], [address], 05/29/2025 10:36:52 05/15/20 25 05/16/2025 CMP14 +EGFR ALT (SGPT) 20 IU/L 0-44 normal Not Available [facility] ([facility]) [address] [place], [address], 05/29/2025 10:36:52 05/15/20 25 05/16/2025 FE+TI BC+FE R iron bind.cap.(TI BC) 281 ug/dL 250-45 0 normal Not Available [facility] ([facility]) [address] [place], [address], 05/29/2025 10:36:53 05/15/20 25 05/16/2025 FE+TI BC+FE R UIBC 177 ug/dL 111-34 3 normal Not Available [facility] ([facility]) [address] [place], [address], 05/29/2025 10:36:53 05/15/20 25 05/16/2025 FE+TI BC+FE R iron 104 ug/dL 38-169 normal Not Available [facility] ([facility]) [address] [place], [address], 05/29/2025 10:36:53 05/15/20 25 05/16/2025 FE+TI BC+FE R iron saturation 37 % 15-55 normal Not Available [facility] ([facility]) [address] [place], [address], 05/29/2025 10:36:53 05/15/20 25 05/16/2025 FE+TI BC+FE R ferritin 275 NG/mL 30-400 normal Not Available [facility] ([facility]) [address] [place], [address], 05/29/2025 10:36:53 05/15/20 25 05/16/2025 TSH+F REE T4 TSH 2.690 uIU/m L 0.450- 4.500 normal Not Available [facility] ([facility]) [address] [facility], [place], [address], 05/29/2025 10:36:53 05/15/20 25 05/16/2025 TSH+F REE T4 T4,free(dire ct) 1.05 NG/dL 0.82-1 .77 normal Not Available [facility] ([facility]) [address] [place], [address], 05/29/2025 10:36:53 05/15/20 25 05/16/2025 CBC WITH DIFFE RENTI AL/PL ATELE T WBC 6.8 x10e3 /uL 3.4-10 .8 normal Not Available [facility] ([facility]) [address] [place], [address], 05/29/2025 10:36:53 05/15/20 25 05/16/2025 CBC WITH DIFFE RENTI AL/PL ATELE T RBC 5.21 x10e6 /uL 4.14-5 .80 normal Not Available [facility] ([facility]) [address] [place], [address], 05/29/2025 10:36:53 05/15/20 25 05/16/2025 CBC WITH DIFFE RENTI AL/PL ATELE T hemoglobin 16.1 g/dL 13.0-1 7.7 normal Not Available [facility] ([facility]) [address] [place], [address], 05/29/2025 10:36:53 05/15/20 25 05/16/2025 CBC WITH DIFFE RENTI AL/PL ATELE T hematocrit 48.3 % 37.5-5 1.0 normal Not Available [facility] ([facility]) [address] [place], [address], 05/29/2025 10:36:53 05/15/20 25 05/16/2025 CBC WITH DIFFE RENTI AL/PL ATELE T MCV 93 fL 79-97 normal Not Available [facility] ([facility]) [address] [facility], [place], [address], 05/29/2025 10:36:53 05/15/20 25 05/16/2025 CBC WITH DIFFE RENTI AL/PL ATELE T MCH 30.9 pg 26.6-3 3.0 normal Not Available [facility] ([facility]) [address] [facility], [place], [address], 05/29/2025 10:36:53 05/15/20 25 05/16/2025 CBC WITH DIFFE RENTI AL/PL ATELE T MCHC 33.3 g/dL 31.5-3 5.7 normal Not Available [facility] ([facility]) [address] [place], [address], 05/29/2025 10:36:53 05/15/20 25 05/16/2025 CBC WITH DIFFE RENTI AL/PL ATELE T RDW 12.3 % 11.6-1 5.4 Not Available [facility] ([facility]) [address] [place], [address], 05/29/2025 10:36:53 05/15/20 25 05/16/2025 CBC WITH DIFFE RENTI AL/PL ATELE T platelets 256 x10e3 /uL 150-45 0 normal Not Available [facility] ([facility]) [address] [place], [address], 05/29/2025 10:36:53 05/15/20 25 05/16/2025 CBC WITH DIFFE RENTI AL/PL ATELE T neutrophils 58 % not estab. normal Not Available [facility] ([facility]) [address] [facility], [place], [address], 05/29/2025 10:36:53 05/15/20 25 05/16/2025 CBC WITH DIFFE RENTI AL/PL ATELE T lymphs 31 % not estab. normal Not Available [facility] ([facility]) [address] [facility], [place], [address], 05/29/2025 10:36:53 05/15/20 25 05/16/2025 CBC WITH DIFFE RENTI AL/PL ATELE T monocytes 8 % not estab. normal Not Available [facility] ([facility]) [address] [facility], [place], [address], 05/29/2025 10:36:53 05/15/20 25 05/16/2025 CBC WITH DIFFE RENTI AL/PL ATELE T eos 2 % not estab. normal Not Available [facility] ([facility]) [address] [facility], [place], [address], 05/29/2025 10:36:53 05/15/20 25 05/16/2025 CBC WITH DIFFE RENTI AL/PL ATELE T basos 0 % not estab. normal Not Available [facility] ([facility]) [address] [facility], [place], [address], 05/29/2025 10:36:53 05/15/20 25 05/16/2025 CBC WITH DIFFE RENTI AL/PL ATELE T immature cells [facility] Not Available [facility] ([facility]) [address] [facility], [place], [address], 05/29/2025 10:36:53 05/15/20 25 05/16/2025 CBC WITH DIFFE RENTI AL/PL ATELE T neutrophils (absolute) 4.0 x10e3 /uL 1.4-7. 0 normal Not Available [facility] ([facility]) [address] [facility], [place], [address], 05/29/2025 10:36:53 05/15/20 25 05/16/2025 CBC WITH DIFFE RENTI AL/PL ATELE T lymphs (absolute) 2.1 x10e3 /uL 0.7-3. 1 normal Not Available [facility] ([facility]) [address] [facility], [place], [address], 05/29/2025 10:36:53 05/15/20 25 05/16/2025 CBC WITH DIFFE RENTI AL/PL ATELE T monocytes(ab solute) 0.5 x10e3 /uL 0.1-0. 9 normal Not Available [facility] ([facility]) [address] [facility], [place], [address], 05/29/2025 10:36:53 05/15/20 25 05/16/2025 CBC WITH DIFFE RENTI AL/PL ATELE T eos (absolute) 0.1 x10e3 /uL 0.0-0. 4 normal Not Available [facility] ([facility]) [address] [facility], [place], [address], 05/29/2025 10:36:53 05/15/20 25 05/16/2025 CBC WITH DIFFE RENTI AL/PL ATELE T baso (absolute) 0.0 x10e3 /uL 0.0-0. 2 normal Not Available [facility] ([facility]) [address] [facility], [place], [address], 05/29/2025 10:36:53 05/15/20 25 05/16/2025 CBC WITH DIFFE RENTI AL/PL ATELE T immature granulocytes 0 % not estab. Not Available [facility] ([facility]) [address] [facility], [place], [address], 05/29/2025 10:36:53 05/15/20 25 05/16/2025 CBC WITH DIFFE RENTI AL/PL ATELE T immature grans (abs) 0.0 x10e3 /uL 0.0-0. 1 Not Available [facility] ([facility]) [address] [facility], [place], [address], 05/29/2025 10:36:53 05/15/2005/16/2025 CBC WITH DIFFE RENTI AL/PL ATELE T NRBC [facility] Not Available [facility] ([facility]) [address] [facility], [place], [address], 05/29/2025 10:36:53 05/15/2005/16/2025 CBC WITH DIFFE RENTI AL/PL ATELE T hematology comments: [facility] Not Available [facility] ([facility]) [address] [facility], [place], [address], 05/29/2025 10:36:53 05/15/20 25 05/16/2025 LIPID PANEL cholesterol, total 155 mg/dL 100-19 9 normal Not Available [facility] ([facility]) [address] [facility], [place], [address], 05/29/2025 10:36:54 05/15/2005/16/2025 LIPID PANEL triglyceride s 91 mg/dL 0-149 normal Not Available [facility] ([facility]) [address] [facility], [place], [address], 05/29/2025 10:36:54 05/15/20 25 05/16/2025 LIPID PANEL HDL cholesterol 45 mg/dL >39 normal Not Available [facility] ([facility]) [address] [facility], [place], [address], 05/29/2025 10:36:54 05/15/20 25 05/16/2025 LIPID PANEL VLDL cholesterol tori 17 mg/dL 5-40 Not Available [facility] ([facility]) [address] [facility], [place], [address], 05/29/2025 10:36:54 05/15/20 25 05/16/2025 LIPID PANEL LDL chol calc ([facility]) 93 mg/dL 0-99 Not Available [facility] ([facility]) [address] [facility], [place], [address], 05/29/2025 10:36:54 05/15/20 25 05/16/2025 LIPID PANEL LDL calc comment: [facility] Not Available [facility] ([facility]) [address] [facility], [place], [address], 05/29/2025 10:36:54 05/15/2005/29/2025 VITAM IN E vitamin E(alpha tocopherol) 9.5 mg/L 9.0-29 .0 Not Available [facility] ([facility]) [address] [facility], [place], [address], 05/29/2025 10:36:54 05/15/2005/29/2025 VITAM IN E vitamin [...] in E defic ient. Not Available [facility] ([facility]) [address] [facility], [place], [address], 05/29/2025 10:36:54 05/15/2005/16/2025 HEMOG LOBIN A1C hemoglobin A1C 6.0 % 4.8-5. 6 above high normal Predi abete s: 5.7 - 6.4 Diabe deja: >6.4 Glyce irene contr ol for adult s with diabe deja: <7.0 Not Available [facility] ([facility]) [address] [facility], [place], [address], 05/29/2025 10:36:55 05/15/2005/16/2025 FOLAT E (FOLI C ACID) , SERUM folate (folic acid), serum 10.6 NG/mL >3.0 normal A serum folat e ludin ntrat ion of less than 3.1 ng/mL is consi dered to repre sent clini tori defic iency . Not Available [facility] ([facility]) [address] [facility], [place], [address], 05/29/2025 10:36:55 05/15/20 25 05/29/2025 VITAM IN A, SERUM vitamin A 37.0 ug/dL 22.0-6 9.5 Refer ence inter vals for vitam in A deter mined from [facility] inter nal studi es. Indiv idual s with vitam in A less than 20 ug/dL are consi dered vitam in A defic ient and those with serum ludin ntrat ions less than 10 ug/dL are consi dered sever lvie defic ient. This test was devel oped and its perfo rmanc e homero cteri stics deter mined by [employer]. It has not been clear ed or appro annette by the Food and Drug Admin istra tion. Not Available [facility] ([facility]) [address] [facility], [place], [address], 05/29/2025 10:36:56 05/15/20 25 05/16/2025 VITAM IN [...] 1. IOM (Inst itute of Medic ine). 2009. Dieta ry refer ence intak es for calci um and D. Chaog francois [place]: The Natio nal [employer] . 2. Holic vitaliy MF, Julianne ey [place], Ana Laura off-F errar i FLORES, et al. Evalu ation , treat ment, and preve ntion of vitam in D defic iency : an Endoc rine Socie ty clini tori pract ice guide line. JCEM. 2010; 96(7) :1911 -30. Not Available [facility] ([facility]) [address] [facility], [place], [address], 05/29/2025 10:36:56 05/15/20 25 05/19/2025 VITAM IN B1 (THIA MINE) , BLOOD vit. B1, whole blood 127.7 nmol/ L 66.5-2 00.0 Not Available [facility] ([facility]) [address] [facility], [place], [address], 05/29/2025 10:36:56 05/15/20 25 05/25/2025 METHY LMALO LIZBETH ACID, SERUM methylmaloni c acid, serum 202 nmol/ L 0-378 Not Available [facility] ([facility]) [address] [facility], [place], [address], 05/29/2025 10:36:57 05/15/20 25 05/16/2025 PTH, INTAC T PTH, intact 30 pg/mL 15-65 normal Not Available [facility] ([facility]) [address] [place], [address], 05/29/2025 10:36:57 05/15/2005/15/2025 XR, chest , 2 view [facility] [address] [place] [address] Phone: Fax: Name: GENOVEVA VASQUEZ Exam Date: 025 : [birth year] Age 65 years Gender : M Access ion: [id number] Physic migel: NANCY MOONEY ty: [place] [place] ty HSV: Outpat ient Exam: CHEST 2 [...] by: MARIN LE Thank you for referr GENOVEVA Hamm to [facility]. Legall y authen ticate d by KELLY Kennedy 2024-08 12:53: 51 CC'ed Logic: Orderi ng Provid er: JESICA Maldonado Attend ing Provid er: JESICA Maldonado Admitt ing Provid er: JESICA Maldonado [facility] [address] [place] [address], [address], 05/20/2025 16:59:01 Result Notes Documentation Provider Name and Address Organization Details Recorded Time Xr, Chest, 2 View : [address] [place] [address] Name: GENOVEVA VASQUEZ Exam Date: 05/15/2025 : 1960 Age 65 years Gender: M Physician: ROBERTO CARLOS MOONEY Facility: [facility] Facility HSV: Outpatient Exam: CHEST 2 [...] Thank you for referring GENOVEVA VASQUEZ to . Legally authenticated by KELLY PLUMMER 2025-05-15 12:53:51 CC'ed Logic: Ordering Provider: JESICA AZEVEDO Attending Provider: JESICA AZEVEDO Admitting Provider: ABRAM Vallecillo [address], [place], [address], [place] [facility] [place] 05/20/2025 15:52:00 Problems Name Problem SNOMED Code Status Onset Date Resolution Date Notes Provider Name and Address Organization Details Recorded Time Prostate specific antigen above reference range 464320233 Active 2023 ROB HARRISON MD [address], [place], [address] , [place] [facility] [place] [facility] [place] 5 08:34:33 Nocturia 281559536 Active 2023 Jessica Crase null, [place] [facility] [place] [facility] [place] 4 08:45:51 Hyperchole sterolemia 21142645 Active 2023 Jessica Crase null, [place] [facility] [place] [facility] [place] 4 08:46:01 Sleep apnea 03801710 Active 2023 Jessica Crase null, [place] [facility] [place] [facility] [place] 4 08:46:10 Irregular heart beat 609265692 Active 2023 Jessica Crase null, [place] [facility] [place] [facility] [place] 4 08:46:32 Prostate specific antigen above reference range 073877460 Active 2023 ROB HARRISON MD [address], [place], [address] , [place] [facility] & [place] 5 08:34:33 Lower urinary tract symptoms due to benign prostatic hypertroph y 0036348820947 1 Active [address], [place], [address] , [place] [facility] & [place] 4 09:02:11 Benign prostatic hyperplasi a with outflow obstructio n 960550019 Active 2024 ROB HARRISON MD [address], [place], [address] , [place] [facility] & [place] 5 08:34:28 Essential hypertensi on 64865441 Active [address] [place], [address] , [place] [facility] & [place] 5 10:25:24 Atrial fibrillati on 25323002 Active 20[place], [address] , [place] [facility] & [place] 5 10:25:35 Hyperlipid emia 55337364 Active 20[place], [address] , [place] [facility] & [place] 5 10:25:49 Disorder of function of stomach 662609965 Active [address], [address] , [place] [facility] & [place] 5 10:26:49 Obesity 773984360 Active 20[address] [place], [address] , [place] [facility] [place] 10:26:12 Severe obesity 6420839160445 4 Active 2024 ABRAM Vail [address], [facility] [address] , [facility] & [place] 10:26:39 Obstructiv e sleep apnea syndrome 29644438 Active [address], [facility] [address] , [facility] & [place] 10:28:11 Problem Notes None recorded. Procedures Surgical History Date Name Laterality Status Provider Name and Address Organization Details Recorded Time Shoulder joint surgery completed ABRAM [address], [facility] [address], [facility] & [place] 05/15/2025 10:27:33 vasectomy completed Lizett Haddad [facility] & [place] 07/08/2024 16:18:43 total replacement of hip completed Johny Ortiz [facility] & [place] 05/15/2025 08:14:07 Imaging Results None recorded. Procedure Notes None recorded. Medical Equipment None Reported. Allergies Allergen ID Allergen Name Allergen Category Reaction Reaction Severity Criticality Documentation Date Start Date Code Code System Note Provider Name and Address Organization Details Recorded Time 822081 Product containin g penicilli n (product) medicatio n hives Not available Not available 07/08/2024 61524 8001 SNOMED ceph ok ABRAM Vail [address], [place], [address], [facility] & [place] 10:25:05 Medications Name Sig Start Date Stop [...] Updated DateTime 5 180.34 cm 48.9 kg/m2 652654. 84 g 70 /min 97 [degF] 168/86 mm[Hg] Johny Sanchez-Bec kirsten [facility] & [place] 08:20:06 Social History Question Answer Notes LastModified by [employer] ion Details LastModified Time Tobacco Smoking Status Never Smoker Lizett Haddad null, [place] - [facility] & [place] 07/08/2024 16:19:26 What Is Your Level Of [...] Not available 04/2025 08:07:53 Mother Essential hypertension [id number] Not available 1 08:07:53 Mother Disorder of [...] available 07/15/2024 10:19:49 Medical History Condition Response Deep Vein Thrombosis N Bleeding Disorder N Reflux/GERD N Sleep Apnea Y High Cholesterol Y Liver Disease N Heart Disease Y Pulmonary Embolism N Hypertension Y Kidney Disease N Past Encounters Encounter ID Performer Location Encounter Start Date Encounter Closed Date Diagnosis/Indication Diagnosis SNOMED-CT Code Diagnosis ICD10 Code Diagnosis IMO Codes Diagnosis Note [id number] [facility] [address] [facility] [address] [facility] [place] [address] 05/15/2025 07:42:59 05/15/2025 10:47:27 Disorder of function of stomach 810194195 K31.89 Pre-surger y evaluation 075482723 Z01.818 Obesity screening 390493 005 Z13.89 Essential hypertension 84436915 I10 40727 Atrial fibrillation 4943 6004 I48.91 Z79.01 18371501 Hyperlipidemia 86319425 E78.5 27688009 Severe obesity 201486328 1 9104 E66.813 Z68.42 9383195374 Weight loss surgery options discussed at length [...] been completed Obstructiv e sleep apnea syndrome 50106475 G47.[id number], LD [facility] [address] [facility] [place] [address] 05/15/2025 10:46:55 05/15/2025 12:01:12 Morbid obesity 157415713 E66.01 48641 BMI 48.9 Health Concerns Section Related Observation LastModified by Organization Detai ls LastModified Time None Recorded Concern Status LastModified by Organization Details LastModified Time None Recorded Payers Encounter Date Sequence Insurance Name Policy Number Policy Mcmahan Covered Member ID Mcmahan Member ID Guarantor Name 05/15/2025 1 [place] [id number] Genoveva Vasquez [id number] Genoveva Vasquez Notes Date Note Type [...] boredom, helps me handle stress. ABRAM Vail [address], [place], [address], [facility] & [place] 05/15/2025 13:16:10 05/15/2025 text/html Intake Template RDN met w/ EDE Kat 1960, who is a 65 YO to complete initial nutritional assessment for intake of bariatric surgery. Pt is interested in DS. Height = 71in. Weight = 350.7# (BMI =48.9 ). PMH significant for Afib, high cholesterol, HTN, MATT Past weight loss attempts: Rosalinda estrada for wt loss, WW, Hector, keto, Saxenda, Wegovfrancesca Hx of eating disorder: No Prescription diet pills: No Herbal supplements: No Vitamins: No Meal Pattern: B: breakfast Jose stoll Mt. DewL: sometimes skips, chicken salad sandD: Eats out Sammarinese, chicken stripsSnacks: not a lot, chips, pb [...] and monitor PRN. JUD MCGUIRE RD, LD [address], [place], [address], [facility] - [place] & [place] 05/15/2025 13:30:14
--- OUTSIDE RECORDS SUMMARY | 2025-06-05 07:29 | XMS_ITS | Encounter Summary ---
Author Organization Healthcare Address [address] [place] [address] Care Team Providers Care Stone Spreader Operator Name Role Phone Vin Denson MD Primary Care Provider [phone] Reason for Referral * Consultation (Routine) - Closed Specialty Diagnoses / Procedures Referred By Adan sears Referred To Contact Dentist / Pain Medicine Diagnoses Obstructive sleep apnea (adult) (pediatric) Lizett De La Torre MD [address] [place] [address] Phone: tel: fax: Lydia Shea, S [address] [facility] [address] [place] [address] Phone: tel: fax: Referral ID Status Reason Start Date Expiration Date Visits Re quested Visits Authorized [id number] Closed 08/14/2024 02/13/2026 1 1 Encounter Details Date Type Department Care Team (Late st Contact Info) Description 08/14/2024 Community Orders Community Practice [address] [place] [address] Lizett De La Torre MD [address] [place] [address] Obstructive sleep apnea (adult) (pediatric) (Primary Dx) Social History Tobacco Use Types Packs/Day Years Used Date Smoking Tobacco: Never Assessed Sex and Gender Information Value Date Recorded Sex Assigned at Not on file Legal Sex Male 6:08 PM EDT Gender Identity Not on file Sexual Orientation Not on file documented as of this encounter Plan of Treatment Scheduled Referrals Name Type Priority Associated Diagnoses Order Schedule Ambulatory Referral to Orofacial Pain Outpatient Referral Routine Obstructive sleep apnea (adult) (pediatric) Expected: 08/14/2024 (Approximate), Expires: 02/11/2026 documented as of this encounter Visit Diagnoses Diagnosis Obstructive sleep apnea (adult) (pediatric)- Primary documented in this encounter Care Teams Stone Spreader Operator Relationship Specialty Start Date End Date Vin Denson MD [address] [place] [address] PCP - General 12/18/20 documented as of this encounter
[2025-06-05 07:49] VITALS: BMI 48.2
[2025-06-05] MEDS: IVABRADINE HCL 7.5MG TABLET PO (08:00)
[2025-06-05] MEDS: METOPROLOL TARTRATE 50MG TABLET PO (08:00)
[2025-06-05 08:12] LABS: Chloride 102 mmol/L (98-107); Potassium 4.5 mmoL/L (3.5-5.1); Sodium 134 mmol/L (136-145)
[2025-06-05 08:15] LABS: Anion Gap 10.5 mEq/L (5-15); Blood Urea Nitrogen 15 mg/dl (9-20); Carbon Dioxide 26 mmol/L (22.0-30.0); Creatinine Clearance Estimated 81 mL/min (50-200); Creatinine,Serum 0.80 mg/dl (0.66-1.25); Estimated Glomerular Filt Rate 98 ml/min (>60); GFR (African American) 118 ML/MIN (>60)
[2025-06-05 08:16] LABS: Calcium 9.5 mg/dl (8.4-10.2); Glucose 143 mg/dl (74-100)
[2025-06-05 08:21] VITALS: BP 137/67; PULSE 88; RESP 18; O2SAT 96
--- NOTE | 2025-06-05 08:30 | CT_ITS ---
APPROVED REPORT Senior Data Scientist: CLINICAL INDICATION Chest Pain TECHNIQUE Image Acquisition: A 128 slice MDCT scanner (Bueno Inca View) was used for data acquisition. A noncontrast coronary calcium scan was performed. A CT attenuation threshold of 130 Hounsfield units (HU) was used for the detection of calcium in contiguous voxels of 1 sq mm in area to be counted as individual lesions. Bolus tracking in the ascending aorta with a threshold of 180 HU was performed. Immediately afterwards, ECG synchronized cardiac CT was then performed from the cardiac base to apex using retrospective gating with ECG tube current modulation. A total of 85 mL of Isovue 370 mg/mL contrast medium was administered at 5 mL/sec followed by a saline flush using a biphasic injection protocol. A tube voltage of 120 KVp was used. The patient received the following medications prior to the cardiac CT. 75 mg of oral metoprolol 15 mg of intravenous metoprolol 0.8 mg of sublingual nitroglycerin The average heart rate at the time of acquisition was 50 bpm and regular. Image Reconstruction Transaxial images were reconstructed at 0.67 mm slide thickness. Data was reviewed interactively on an advanced workstation capable of 2 and 3-dimensional displays in all conventional reconstruction formats, including multiplanar reformations, maximum intensity projections, curved multiplanar reformations, and volume rendered reconstructions. When applicable, selected routine images describing the relevant coronary anatomy and pathology were saved and sent to PACS. Complications None Technical Quality Overall image quality was suboptimal. Coronary artery opacification was suboptimal. Total DLP (Dose-Length Product) is 4093.1 mGy-cm. The reported value represents the total of one or more individual components during the CT acquisition of this date and at this time, and as such, the same value may appear in more than one CT report depending on the interpreting/reporting physicians. COMPARISON None FINDINGS CT Coronary Calcium Scoring LMA (Left Main Artery) = 0 LAD (Left Anterior Descending) = 731 LCX (Left Coronary Circumflex) = 131 RCA (Right Coronary Artery) = 376 Total Calcium Score = 1237 using the AJ-130 method. The observed calcium score of 1237 is at 95th percentile for subjects of the same age, sex, and race/ethnicity. The interpretation of the calcium heart score is based on the following continuum*: 0 = no calcified plaque detected (risk of coronary artery disease is very low ??? less than 5%) 1-10 = calcium detected in extremely minimal levels (risk of coronary diseases is still low ??? less than 10%) 11-100 = mild levels of plaque detected with certainty (mild or minimal narrowing of heart arteries is likely) 101-400 = definite,at least moderate levels of plaque detected (relatively high risk of a heart attack within 3-5 years) >401-999 = extensive levels of plaque detected (high risk of heart attack, high levels of vascular disease are present, high likelihood of at least one significant coronary narrowing) *The calcium heart score quantifies the burden of coronary calcification/plaque in the coronary arteries. The calcium heart score is not able to evaluate the presence or burden of non-calcified (i.e. soft) plaque. There is mild calcification in the aortic valve. Coronary CT Angiography The coronary arterial system is right dominant. Quantitative Stenosis Grading: Left Main (LM): The left main originates normally from the left sinus of Valsalva. The LM bifurcates into the left anterior descending artery and left circumflex artery. The LM is patent with no evidence of atherosclerosis. Left Anterior Descending (LAD) and Diagonal Branches: The LAD gives off 2 diagonal branch(es). There is mixed calcified/noncalcified plaque in the proximal and mid LAD segments with up to 70-90% luminal stenosis. There is no evidence of LAD-myocardial bridge. Left Circumflex (LCX) and Obtuse Marginals (OM): The LCX gives off 1 Obtuse Marginal (OM) branch(es). There is mixed plaque/noncalcified plaque in the proximal LCx segment with up to 50-70% luminal stenosis. Right Coronary Artery (RCA): The RCA originates normally from the right sinus of Valsalva. The RCA gives off a posterior descending artery (PDA) and posterolateral (PL) branches. There is mixed calcified/noncalcified plaque in the proximal RCA segment with up to 70-90% luminal stenosis. Non-Coronary Cardiac Findings: Analysis of the left ventricular (LV) structure and function was performed after 3-D reconstruction of the LV from axial images, with user-corrected automatic contouring for assessment of LV volumes and user-defined reconstruction from oblique planes for measurement of 3-D cardiac structure and function. -The left ventricle systolic function is normal. -There is no left atrial appendage filling defect. Two right pulmonary veins and two left pulmonary veins drain normally into the left atrium. -No pericardial thickening or calcification. -Central and branch pulmonary arteries in the [id number] are unremarkable. -Thoracic aorta within the visualized thoracic aortic-branches in the [id number]-sz-rvro is unremarkable. Extracardiac Structures No significant extra-cardiac findings. Note, however, that this study is focused on the cardiac findings. IMPRESSION -Technically difficult with suboptimal image quality in the setting of significant blurring and motion artifact. This may affect diagnostic interpretation of the study findings. -Presence of coronary calcification with an Agatston score = 1237 using the AJ-130 method. -The observed calcium score of 1237 is at 95th percentile for subjects of the same age, sex, and race/ethnicity. -Multivessel atherosclerotic coronary disease, with likely evidence of significant flow-limiting atherosclerosis of the LAD and RCA segments. -CAD-RADS 4B. Management recommendations per ACC/AHA guidelines*, as clinically appropriate. *Recommendations: CAD RADS 0: Reassurance. Consider non-atherosclerotic causes of chest pain. CAD RADS 1: Consider non-atherosclerotic causes of chest pain. Consider preventive therapy and risk factor modification. CAD RADS 2: Consider non-atherosclerotic causes of chest pain. Consider preventive therapy and risk factor modification, particularly for patients with nonobstructive plaque in multiple segments. CAD RADS 3: Consider further functional testing. Consider symptom-guided anti-ischemic and preventive pharmacotherapy as well as risk factor modification per published guideline statements. CAD RADS 4A: Consider further functional testing or invasive coronary angiography with revascularization per published guideline statements. Consider symptom-guided anti-ischemic and preventive pharmacotherapy as well as risk factor modification per published guideline statements. CAD RADS 4B: Invasive coronary angiography recommended with revascularization per published guideline statements. Consider symptom-guided anti-ischemic and preventive pharmacotherapy as well as risk factor modification per published guideline statements. CAD RADS 5: Consider invasive angiography and/or viability assessment with revascularization per published guideline statements. Consider symptom-guided anti-ischemic and preventive pharmacotherapy as well as risk factor modification per published guideline statements. CRITICAL RESULT None COMMUNICATION Per this written report The coronary and cardiac findings of this CCTA were reviewed, reported, and signed by Guanakito Logan MD (Diamond Polisher) Conclusion Electronically signed by : Tona Logan MD 06/11/2025 14:41:40
[2025-06-05 08:46] VITALS: BP 143/90; PULSE 71; RESP 16; O2SAT 95
[2025-06-05 08:50] VITALS: BP 127/75; PULSE 58; RESP 16; O2SAT 98
[2025-06-05] MEDS: 0.9 % SODIUM CHLORIDE 50 ML VIAL IV (09:08)
[2025-06-05] MEDS: SODIUM CHLORIDE 0.9% 10ML SYR (RAD ONLY) 10 ML IV (09:09)
[2025-06-05] MEDS: IOPAMIDOL-370 (76%);100ML BOTTLE 90 ML IV (09:09)
== END 2025-06-05 09:13 | disposition home or self-care (01) ==
PROVIDERS: PCP Family Medicine; Visit Provider Physician Assistant
DX: I25.10 Atherosclerotic heart disease of native coronary artery without angina pectoris (principal); I48.0 Paroxysmal atrial fibrillation; E78.5 Hyperlipidemia, unspecified; R94.39 Abnormal result of other cardiovascular function study
CPT/HCPCS: 75574; 80048; Q9967

== ENCOUNTER 2025-06-20 09:50 | Day surgery (SDC) | payer BC, SELFPAY ==
[2025-06-20] VITALS (14 sets, daily range): BP systolic 111–148; BP diastolic 56–75; PULSE 60–80; RESP 15–18; TEMP 36.1–36.9; O2SAT 92–99; BMI 47.8
--- NOTE | 2025-06-20 07:05 | IR_ITS ---
APPROVED REPORT Patient Location: Outpatient PROCEDURES Left heart catheterization Left ventriculogram Selective coronary angiogram Drug-eluting stent deployment to the proximal and mid LAD in a noncontiguous manner INDICATION Coronary artery disease, Abnormal CCTA, Angina pectoris Informed consent was obtained prior to the procedure. COMPLICATIONS NONE Estimated Blood Loss: LESS THAN 10 ML TECHNIQUE One percent lidocaine used to anesthetize the right anterior aspect of the wrist. The right radial artery was accessed via the Seldinger technique. A 6 Estonian sheath was placed in the right radial artery. 2.5 mg of Verapamil, 800 mcg of nitroglycerin, 1mg Lidocaine and 5000 U Heparin were given through the arterial sheath. The JL3 catheter was also used to perform left heart catheterization, left ventriculogram and selective coronary angiogram. At the end the diagnostic angiogram therapeutic Was administered giving a therapeutic ACT and the guide catheter was placed in the left main artery followed by Choice PT extra-support wire placed distally. A 2.75 x 18 mm Sanford frontier stent was deployed at 20 siddharth reducing the stenosis to 0%. RENETTA-3 flow was present before and after the procedure. Following this 3.5 x 26 mm Gonvick frontier stent was placed in the proximal LAD at 16 siddharth reducing the stenosis to 0%. RENETTA-3 flow was present before and after the procedure. At the end the procedure the apparatus was removed the sheath was removed and hemostasis was achieved using TR banding patient transferred to the postop boarding in stable condition ANGIOGRAPHIC RESULTS The left main artery Normal The left anterior descending artery Has a proximal eccentric 70% stenosis followed by a long tubular 10 to 20% stenosis with an additional focal 70% eccentric mid vessel stenosis The circumflex artery Large dominant with mild 10% luminal regularities The right coronary artery Large and codominant with proximal 20% followed by additional 20% stenosis with distal 10% luminal regularities The LOCK[place]OD ventriculogram reveals Preserved at 55% The left ventricular end-diastolic pressure Elevated at 20 to 25 mmHg IMPRESSION Severe proximal and mid LAD disease as described above Successful stenting of the proximal and mid LAD severe disease distally 0% with 2 noncontiguous drug-eluting stents Preserved ejection fraction Elevated LVEDP PLAN 1. Dual antiplatelet therapy 2. Treatment for elevated LVEDP 3. Recommend sleep study 4. LDL less than 55 to be achieved with high intensity statin 5. Avoidance of tobacco products 6. Risk factor modification Electronically signed by : Clifford Diaz MD 06/20/2025 12:31:21
[2025-06-20 10:14] LABS: Hematocrit 45.2 % (42.0-52.0); Hemoglobin 15.4 g/dL (14.1-18.0); Immature Granulocytes % 0.4 %; Mean Corpuscular HGB Conc 34.1 g/dL (31.8-35.4); Mean Corpuscular Hemoglobin 31.0 pg (27.0-31.2); Mean Corpuscular Volume 91.1 fl (80-94); Nucleated Red Blood Cells % 0 %; Platelet Count 235 K/mm3 (142-424); Red Blood Count 4.96 M/mm3 (4.60-6.20); Red Cell Distribution Width-SD 42.4 fL; White Blood Count 7.6 K/mm3 (4.8-10.8)
[2025-06-20 10:17] LABS: Anion Gap 9.6 mEq/L (5-15); Blood Urea Nitrogen 12 mg/dl (9-20); Calcium 9.9 mg/dl (8.4-10.2); Carbon Dioxide 30 mmol/L (22.0-30.0); Chloride 103 mmol/L (98-107); Creatinine Clearance Estimated 81 mL/min (50-200); Creatinine,Serum 0.90 mg/dl (0.66-1.25); Estimated Glomerular Filt Rate 85 ml/min (>60); GFR (African American) 103 ML/MIN (>60); Glucose 100 mg/dl (74-100); Potassium 4.6 mmoL/L (3.5-5.1); Sodium 138 mmol/L (136-145)
[2025-06-20] MEDS: HEPARIN 1,000 UNITS/500ML NS (CATH LAB) 3000 UNIT IV (11:19)
[2025-06-20] MEDS: LIDOCAINE 1% 10ML MDV 10 ML IJ (11:19)
[2025-06-20] MEDS: NITROGLYCERIN 800MCG/8ML SYR (CATH LAB) 800 MCG IA (11:19)
[2025-06-20] MEDS: HEPARIN 1,000 UNITS/ML 10ML VIAL (CATH LAB) 5000 UNIT IV (11:20)
[2025-06-20] MEDS: 0.9 % SODIUM CHLORIDE 500 ML 25 ML IV (11:20)
[2025-06-20] MEDS: VERAPAMIL 2.5MG/ML 2ML VIAL 2.5 MG IV (11:20)
[2025-06-20] MEDS: MIDAZOLAM HCL 1MG/ML 5ML VIAL 1 MG IV (12:03)
[2025-06-20] MEDS: FENTANYL 100MCG/2ML VIAL 50 MCG IV (12:03)
[2025-06-20] MEDS: IOPAMIDOL-370 (76%);100ML BOTTLE 120 ML IV (12:59)
[2025-06-20 13:03] LABS: CATHL Activated Clotting Time 340 SEC (74-125)
== END 2025-06-20 15:23 | disposition home or self-care (01) ==
PROVIDERS: PCP Family Medicine; Visit Provider Internal Medicine
PROC: 4A023N7 Measurement of Cardiac Sampling and Pressure, Left Heart, Percutaneous Approach (ICD-10-PCS; CPT 93452; principal; 2025-06-20 13:30)
DX: I25.119 Atherosclerotic heart disease of native coronary artery with unspecified angina pectoris (principal); R94.39 Abnormal result of other cardiovascular function study; I48.0 Paroxysmal atrial fibrillation; R93.1 Abnormal findings on diagnostic imaging of heart and coronary circulation; I10 Essential (primary) hypertension; E78.2 Mixed hyperlipidemia; G47.33 Obstructive sleep apnea (adult) (pediatric); E66.01 Morbid (severe) obesity due to excess calories; Z68.42 Body mass index [BMI] 45.0-49.9, adult; Z79.82 Long term (current) use of aspirin; Z79.01 Long term (current) use of anticoagulants; Z79.02 Long term (current) use of antithrombotics/antiplatelets; Z79.899 Other long term (current) drug therapy; Z88.0 Allergy status to penicillin; Z82.49 Family history of ischemic heart disease and other diseases of the circulatory system; Z82.3 Family history of stroke
CPT/HCPCS: 36415; 80048; 85025; 85347; 92928; 93458; 99152; 99153; C1725; C1760; C1769; C1874; C9600; J1200; J1644; J2003; J3010; J7040; Q9967

== ENCOUNTER 2025-06-23 08:16 | Outpatient (CLI) | payer BC, SELFPAY ==
[2025-06-23 08:59] LABS: Hematocrit 44.0 % (42.0-52.0); Hemoglobin 15.3 g/dL (14.1-18.0); Immature Granulocytes % 0.6 %; Mean Corpuscular HGB Conc 34.8 g/dL (31.8-35.4); Mean Corpuscular Hemoglobin 31.2 pg (27.0-31.2); Mean Corpuscular Volume 89.8 fl (80-94); Nucleated Red Blood Cells % 0 %; Platelet Count 242 K/mm3 (142-424); Red Blood Count 4.90 M/mm3 (4.60-6.20); Red Cell Distribution Width-SD 41.0 fL; White Blood Count 8.1 K/mm3 (4.8-10.8)
[2025-06-23 09:51] LABS: Anion Gap 13.3 mEq/L (5-15); Blood Urea Nitrogen 12 mg/dl (9-20); Calcium 9.9 mg/dl (8.4-10.2); Carbon Dioxide 27 mmol/L (22.0-30.0); Chloride 101 mmol/L (98-107); Creatinine,Serum 0.70 mg/dl (0.66-1.25); Estimated Glomerular Filt Rate 114 ml/min (>60); GFR (African American) 138 ML/MIN (>60); Glucose 96 mg/dl (74-100); Potassium 4.3 mmoL/L (3.5-5.1); Sodium 137 mmol/L (136-145)
== END 2025-06-23 23:59 | disposition home or self-care (01) ==
LOC: LAB 08:16
PROVIDERS: PCP Family Medicine; Visit Provider Internal Medicine
DX: I25.10 Atherosclerotic heart disease of native coronary artery without angina pectoris (principal)
CPT/HCPCS: 36415; 80048; 85025

== ENCOUNTER 2025-07-01 08:17 | Outpatient (CLI) | payer BC, SELFPAY ==
--- OUTSIDE RECORDS SUMMARY | 2025-07-01 08:22 | XMS_ITS | Clinical Summary ---
[facility] Address [address] [place] [address] Care Team Providers Care Us Marketing Director Name Role Phone Vin Denson MD Primary Care Provider [phone] Allergies Active Allergy Reactions Criticality Noted Date [...] SCREENING 09/26/2026 Medical Devices Implanted Type Area Sheriffs Officer Device Identifier Shelf Expiration Date Model / Serial / Lot Shll Acet R3 3h Std 56mm - [id number] Implanted:Q ty: 1 on 03/14/2022 by Sonny Jordan MD at [facility] Implant Right : Hip [employer] 12/10/2031 [id number] / / [id number] Liner Hip Or3o 2/Mobl Sz44/56 - [id number] Implanted:Q ty: 1 on 03/14/2022 by Sonny Jordan MD at [facility] Implant Right : Hip [employer] [id number] 06/21/2030 [id number] / / [id number] Scrw Sph Hd Reflection 6.5x20mm - [id number] Implanted:Q ty: 1 on 03/14/2022 by Sonny Jordan MD at [facility] Implant Right : Hip [employer] [id number] 06/13/2028 [id number] / / [id number] Stem Fem/Hip Polarstem W/Colr Std Sz2 - [id number] Implanted:Q ty: 1 on 03/14/2022 by Sonny Jordan MD at [facility] Implant Right : Hip [employer] 07/13/2028 [id number] / / [id number] Hd Fem/Hip Oxinium Tpr 07/20 28mm Pls0 - [id number] Implanted:Q ty: 1 on 03/14/2022 by Snony Jordan MD at [facility] Implant Right : Hip [employer] 08/01/2031 [id number] / / [id number] Insrt Hip Or30 2/Mobl Xlpe Sz28/44 - [id number] Implanted:Q ty: 1 on 03/14/2022 by Sonny Jordan MD at [facility] Implant Right : Hip [employer] 12/13/2030 [id number] / / [id number] Totl Hip 2 Mobl Casper Nephew - [id number] Implanted:Q ty: 1 on 03/14/2022 by Sonny Jordan MD at [facility] Implant Right : Hip [employer] CAPHIPTOALDUALMOBILI TY / / Insurance [address] [id number] [facility] PPO Advance Directives * CPR (Attempt to Resuscitate) (Latest Code Status on File) Date Activated Date Inactivated Comments 03/14/2022 2:22 PM 03/15/2022 4:11 PM Question Answer Comments Code Status (Patient has no pulse and is not breathing): CPR (Attempt to Resuscitate) Medical Interventions (Patie nt has pulse or is breathing): Full Care Teams Us Marketing Director Relationship Specialty Start Date End Date Vin Denson MD [address] [facility] [address] [address] PCP - General Family Medicine 08/07/19
--- OUTSIDE RECORDS SUMMARY | 2025-07-01 08:22 | XMS_ITS | Clinical Summary ---
Author Organization [facility] Address [address] [place] [address] Phone [email or web address] Care Team Providers Care Kohinoor Operator Name Role Phone Unavailable Primary Care Provider Unavailabl e Allergies Active Allergy Reactions Criticality Noted Date Comments Penicillins Hives,Rash Low 02/20/2019 Medications nabumetone (RELAFEN) 750 MG tablet 3 12/10/2018 Active simvastatin (ZOCOR) 20 MG tablet 3 12/10/2018 Active celecoxib (CeleBREX) 200 MG capsule 01/24/2020 Active SAXENDA 18 MG/3ML solution pen-injector 02/21/2020 Active Active Problems Problem Noted Date Diagnosed Date Gross hematuria 08/16/2011 Overview (01/03/2018): Contusion of foot 04/26/2011 Overview (01/03/2018): Screening for hypertension 01/11/2011 Overview (01/03/2018): Need for prophylactic vaccin ation and inoculation against influenza 06/02/2010 Overview (01/03/2018): Presbyopia 04/29/2008 Overview (01/03/2018): Regular astigmatism 04/29/2008 Overview (01/03/2018): Hypermetropia 04/29/2008 Overview (01/03/2018): Health examination of defined subpopulation 01/05 Overview (01/03/2018): Other examination of ears and hearing 01/02/2008 Overview (01/03/2018): Resolved Problems Problem Noted Date Diagnosed Date Resolved Date Acute sinusitis 09/06/2007 03/13/2020 Overview (01/03/2018): Other acute sinusitis 07/19/20072019 Overview (01/03/2018): Immunizations Immunization Administration Dates Next Due Influenza, unspecified (CVX-88) 06/02/2010 Social History Tobacco Use Types Packs/Day Years Used Date Smoking Tobacco: Never Smokeless Tobacco: Never Intimate Partner Violence Answer Date R ecorded Insults You Not on file 11/17/2020 Threatens You Not on file 11/17/2020 Screams at You Not on file 11/17/2020 Physically Hurt Not on file 11/17/2020 Intimate Partner Violence Score Not on file 11/17/2020 Stress Answer Date Recorded Stress in your Life Not on file 06/10/2024 Dealing with Stress 3 06/10/2024 Sex and Gender Information Value Date Recorded Sex Assigned at Not on file Legal Sex Male 7:40 AM CDT Gender Identity Not on file Sexual Orientation Not on file Last Filed Vital Signs Vital Sign Reading Time Taken Comments Blood Pressure 139/85 03/01/2019 6:00 AM EDT Pulse 76 06/22/2020 12:49 PM EST Temperature 36.9 C (98.5 F) 06/22/2020 12:49 PM EST Respiratory Rate - - Oxygen Saturation 96% 06/22/2020 12:49 PM EST Inhaled Oxygen Concentration - - Weight 156 kg (344 lb 15.8 oz) 01/13/2014 9:22 A M CDT Height 180.3 cm (5' 11 ) 01/13/2014 9:22 AM CDT Body Mass Index 48.12 01/13/2014 9:22 AM CDT Plan of Treatment Health Maintenance Due Date Last Done Comments CT Colonography 1962 Colonoscopy 1962 Colorectal Cancer Screening Combo 1960 DNA Cologuard 1962 Dental Cleaning/Exam 1962 FIT or FOBT Test 1960 HIV Screening 1960 Hepatitis C Screening 1960 Sigmoidoscopy 1960 Annual Preventive Exam 01/28/1980 Hep B Infection Screening - Triple Screen 01/28/1980 Tetanus Diphtheria and Pertu ssis Immunization (1 - Tdap) 1981 Pneumococcal: 50+ Years (1 o f 1 - PCV) 01/28/2012 Zoster Immunization (1 of 2) 01/28/2012 Covid-19 Immunization (1 - 2 025-26 season) 2025 Influenza Immunization (#1) 2025 06/02/2010 HIB Immunization Aged Out No longer e ligible based on patient's age to complete this topic HPV Immunization Aged Out No longer e ligible based on patient's age to complete this topic Hepatitis A Immunization Aged Out No longer eligible based on patient's age to complete this topic Hepatitis B Immunization Aged Out No longer eligible based on patient's age to complete this topic Polio Immunization Aged Out No longer eligible based on patient's age to complete this topic Insurance [place] [facility] [id number] [place] [address]
--- OUTSIDE RECORDS SUMMARY | 2025-07-01 08:22 | XMS_ITS | Clinical Summary ---
Author Organization Healthcare Address [address] [place] [address] Care Team Providers Care Director Of Purchasing Name Role Phone Vin Denson MD Primary Care Provider + [phone] Social History Tobacco Use Types Packs/Day Years Used Date Smoking Tobacco: Never Assessed Sex and Gender Information Value Date Recorded Sex Assigned at Not on file Legal Sex Male 6:08 PM EDT Gender Identity Not on file Sexual Orientation Not on file Plan of Treatment Not on file Care Teams Director Of Purchasing Relationship Specialty Start Date End Date Vin Denson MD [address] [facility] [address] [place] [address] PCP - General 12/18/20
--- OUTSIDE RECORDS SUMMARY | 2025-07-01 08:22 | XMS_ITS | Encounter Summary ---
Author Organization Healthcare Address [address] [place] [address] Care Team Providers Care Product Engineer Name Role Phone Vin Denson MD Primary Care Provider [phone] Reason for Referral * Consultation (Routine) - Closed Specialty Diagnoses / Procedures Referred By Adan sears Referred To Contact Dentist / Pain Medicine Diagnoses Obstructive sleep apnea (adult) (pediatric) Lizett De La Torre MD [address] [place] [address] Phone: tel: fax: Lydia Shea, S [address] [facility] [address] [place] [address] Phone: tel: fax: Referral ID Status Reason Start Date Expiration Date Visits Re quested Visits Authorized [id number] Closed 08/14/2024 02/13/2026 1 1 Encounter Details Date Type Department Care Team (Late st Contact Info) Description 08/14/2024 Community Orders Community Practice [address] [place] [address] Lizett De La Torre MD [address] [place] [address] Obstructive sleep apnea (adult) (pediatric) [...] Primary documented in this encounter Care Teams Product Engineer Relationship Specialty Start Date End Date Vin Denson MD [address] [place] [address] PCP - General 12/18/20 documented as of this encounter
--- NOTE | 2025-07-01 08:45 | CA_ITS ---
APPROVED REPORT EXAM: Comprehensive 2D, Doppler, and color-flow Echocardiogram Launch Operator: Lola Juan RT(R) Ht: 5 ft 11 in Wt: 334lbs BSA: 2.62 BP: 151/73 mmHg Indications: hx cardioversion, AFIB, MATT, CAD Echo Enhancing Agent Indication: Endocardial border delineation Agent(s) / Amount(s) Used: Definity 2 cc M-Mode Dimensions RVDd 3.26 cm (0.9-2.6) LA Diam 4.22 cm (1.9-4.0) LVDd 4.02 cm (3.5-5.7) LVDs 2.99 cm (3.5-5.7) IVSd 1.12 cm (0.6-1.1) PWd 1.12 cm (0.6-1.1) EF (Teich) 51.00% FS 25.60% EDV (Teich) 70.80 mL ESV (Teich) 34.70 mL LV Diastology E Decel Time 163 (160-240 msec) E/A Ratio 1.1 Mitral Valve MV E Max Eron. 88.0 (40-130 cm/s) MV A Velocity 82.0 (40-130 cm/s) E/A Ratio 1.07 MV PHT 48.0 ms Left Ventricle The left ventricle is normal size. Left ventricular systolic function is normal. The left ventricular ejection fraction is within the normal range. There is increased left ventricular wall thickness. There is normal LV segmental wall motion. The left ventricular diastolic function is normal. No left ventricle thrombus noted on this study. LVEF is 65%. Right Ventricle The right ventricle is normal size. The right ventricular systolic function is normal. Atria The left atrium size is normal. The right atrium size is normal. There is no color Doppler evidence of interatrial shunt. Aortic Valve The aortic valve opens well. There is no hemodynamically significant aortic valvular stenosis. No aortic regurgitation is present. Mitral Valve The mitral valve is normal in structure. No evidence of mitral valve stenosis. Trace mitral regurgitation is present. Tricuspid Valve The tricuspid valve leaflets are thin and pliable. Trace tricuspid regurgitation. There is insufficient TR jet to estimate RVSP. Pulmonic Valve The pulmonary valve is grossly normal in structure. Trace pulmonic valve regurgitation is present. Great Vessels The aortic root is normal in size. IVC is normal in size and collapses >50% with inspiration. Pericardium There is no pericardial effusion. Other Information Study Quality: Technically Difficult Conclusion Normal biventricular systolic function. No significant valvular stenosis or regurgitation. Electronically signed by : Tona Logan MD 07/08/2025 12:49:24
[2025-07-01] MEDS: DEFINITY US ECHO CONTRAST 2ML INJ 2 MG IV (09:11)
== END 2025-07-01 23:59 | disposition home or self-care (01) ==
LOC: RT 08:18
PROVIDERS: PCP Family Medicine; Visit Provider Physician Assistant
DX: I25.10 Atherosclerotic heart disease of native coronary artery without angina pectoris (principal); I48.0 Paroxysmal atrial fibrillation; G47.33 Obstructive sleep apnea (adult) (pediatric); Z98.890 Other specified postprocedural states
CPT/HCPCS: 93306; Q9957

== ENCOUNTER → 2025-07-07 12:56 | Outpatient (RCR) | payer BC, SELFPAY | LOC: CR 12:56 | PROVIDERS: PCP Family Medicine; Visit Provider Internal Medicine | DX: I25.10 Atherosclerotic heart disease of native coronary artery without angina pectoris (principal); I48.0 Paroxysmal atrial fibrillation ==